=== PATIENT | female | born 1940 | race Caucasian/White ===

== ENCOUNTER 2019-12-10 07:50 | Outpatient (CLI) | payer MEDICARE, BC, SELFPAY ==
--- NOTE | 2019-12-10 | MR_ITS ---
WS: [id number] MRI BRAIN WITH AND WITHOUT CONTRAST HISTORY: CVA, ENCEPHALOPATHY COMPARISON: None available. TECHNIQUE: Multiplanar imaging performed through the brain with Prohance 17 ml's IV. No acute infarcts are seen. Peck-white matter differentiation is well preserved. Mixed signal mass centered along the floor of the tentorium involving the RIGHT occipital lobe. This mass measures 2.3 x 2.1 cm. The T2 sequences there are multiple ill-defined cysts. There is adjacent edema in the cortex. There is a small amount of adjacent hemorrhage and hemosiderin definite position . There is no midline shift or mass effect. On the postcontrast imaging there is very little enhancem ent. There are a few vessels traversing this mass. There is additional scattered subcortical and periventricular white matter lesions. Bilateral vincent is chemic changes. RIGHT intracranial ICA is abnormal signal and size. Chronic occlusion is suspected. There is a very t iny amount of flow seen within the majority of the intracranial ICA. The LEFT ICA is dominant. Paranasal sinuses: Mucous retention cyst in the LEFT maxillary sinus. Mastoid air cells: Normal. Calvarium and scalp: Normal. MR/MR head wo/w con [id number] IMPRESSION: 1. Soft tissue mass in the RIGHT occipital lobe with extension along the tento rium. Mass measures 2.3 x 2.1 cm with minimal enhancement. Believe this is an i ntra-axial mass with a small amount of adjacent hemosiderin. Low-grade neoplasm or vascular abnormality should be considered. Recommend follow-up for neurosur gical consultation. Short-term MRI follow-up with contrast may be helpful. Kevon tional CT head with and without contrast may be helpful for further characteriz ation of this mass. 2. Abnormal RIGHT intracranial ICA. Suspect dissection or high-grade obstructi on within the intracranial ICA. CT angiogram carotid artery and [place] s recommended. 3. No acute infarct.
== END 2019-12-10 07:51 | disposition home or self-care (01) ==
LOC: RADSHAW 07:58
PROVIDERS: PCP Family Medicine; Visit Provider Family Medicine
DX: I67.89 Other cerebrovascular disease (principal); G93.40 Encephalopathy, unspecified; R22.0 Localized swelling, mass and lump, head
CPT/HCPCS: 70553; A9579

== ENCOUNTER 2020-01-12 09:41 | Outpatient (CLI) | payer MEDICARE, BC, SELFPAY ==
--- NOTE | 2020-01-12 09:55 | CT_ITS ---
WS: [id number] CTA HEAD TECHNIQUE: Contrast enhanced CTA of the head with coronal and sagittal reformatted images and maximum intensity projection (MIP) images. NASCET criteria utilized. CLINICAL INFORMATION: BRAIN TUMOR AND ENCEPHALOPATHY COMPARISON: CTA January 12, 2020 DLP: 1268.[address] scans at [facility] use at least one of these dose optimization techniques: automat ed exposure control; mA and/or kV adjustment per patient size (includes targeted exams where dose is matched to clinical indication); or iterative reconstruction. FINDINGS: The previously described signal abnormality in the right occipital lobe extending along the tentorium today appears to represent chronic infarct with associated encephalomalacia. No significan t mass effect or midline shift. Associated encephalomalacia seen to better advantage on the CT today. Area of encephalomalacia appears stable. Right ICA is essentially occluded at the skull base with a tiny amount of flow. Tiny amount of flow i n the petrous and cavernous segments. Normal left ICA at the skull base. Hypoplastic right A1 segment . Normal vascularity to the HALI territory. Normal vascularity to the right MCA territory. Patent righ t posterior communicating artery contributes to right MCA flow. Distal vertebral arteries are patent. Basilar artery is patent. 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 Mastoid air cells are well aerated. Mild mucosal thickening in the paranasal sinuses. Mild cavernous carotid calcification. Normal visualized dural venous sinuses. INTRACRANIAL CTA: CT/CT angio head [id number] IMPRESSION: 1. Previously described T2 signal abnormality in the right occipital lobe toda y appears to represent chronic infarct with encephalomalacia. No significant ma ss effect or midline shift. No abnormal enhancement. 2. Right ICA is occluded at the skull base to with a tiny amount of recanalize d or collateral flow in the petrous and cavernous segments. 3. Hypoplastic right A1 segment. Normal vascularity to the right MCA territory with patent right posterior communicating artery. 4. Otherwise unremarkable intracranial CTA.
--- NOTE | 2020-01-12 09:55 | CT_ITS ---
WS: [id number] CT scan of the abdomen and pelvis without Oral and IV contrast. Additional two-dimensional coronal a nd sagittal reconstruction was performed. 01/12/2020 Clinical Data: BRAIN TUMOR AND ENCEPHALOPATHY Comparison: None. DLP: 1053.[address] scans at [facility] use at least one of these dose optimization techniques: automat ed exposure control; mA and/or kV adjustment per patient size (includes targeted exams where dose is matched to clinical indication); or iterative reconstruction. Findings: The lower lungs show no nodules, masses or effusions. The heart is enlarged. The liver, spleen, adrenal glands and pancreas are normal. There are gallstones in the gallbladder The kidneys show cysts, masses, renal calculi or hydronephrosis.. The abdominal aorta is normal in size with calcification in the wall.. No appendicitis or diverticulitis is seen. No abscess, adenopathy, ascites, mass, obstruction or free air is seen. The bladder is unremarkable. The uterus is absent. No inguinal hernia is seen. The bones of the lower thorax, lumbar spine, pelvis, and hips show moderate degenerative change of th e lower lumbar vertebral bodies with degenerative disc narrowing at L5-S1. CT/CT abdomen pelvis wo con [id number] Impression: 1. Negative for acute intra-abdominal or pelvic abnormalities. 2. Cholelithiasis.
[2020-01-12] MEDS: iohexol 350 mg/mL 100 mL Btl IV (10:39)
== END 2020-01-12 09:42 | disposition home or self-care (01) ==
LOC: RADWPI 09:51
PROVIDERS: Family Provider Family Medicine; PCP Family Medicine; Visit Provider Family Medicine
DX: D49.6 Neoplasm of unspecified behavior of brain (principal); G93.40 Encephalopathy, unspecified; G93.89 Other specified disorders of brain; I65.21 Occlusion and stenosis of right carotid artery
CPT/HCPCS: 70496; 74176; Q9967

== ENCOUNTER 2020-01-14 07:36 | Outpatient (CLI) | payer MEDICARE, BC, SELFPAY ==
--- NOTE | 2020-01-14 07:56 | MR_ITS ---
WS: [id number] MRI HEAD WITH CONTRAST TECHNIQUE: Sagittal T1, T2 axial, T2 axial FLAIR, axial susceptibility weighted imaging, axial diffus ion weighted images, and coronal T2 images were obtained. Pre and post-T1 axial and post T1 coronal i mages. ADC and FSPGR images. CLINICAL INFORMATION: BRAIN TUMOR COMPARISON: MRI December 10, 2019 CTA January 12, 2020 FINDINGS: No evidence of restricted diffusion to suggest acute ischemia. Ventricular system and basal cisterns are patent. Again seen is the focal area of cystic encephalomalacia involving the right parasagittal occipital and posterior temporal lobes. Small amount of surrounding hemosiderin. No progressive T2 si gnal abnormality. No abnormal gadolinium enhancement. Findings are consistent with chronic encephalom alacia likely due to prior infarct. Moderate small vessel changes. Mild parenchymal volume loss. Small vessel changes in the vincent. Normal posterior fossa. 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 Otherwise normal va scular flow voids at the skull base. Chronic lacunar infarct right cerebellum. Retention cyst left maxillary sinus. Mild mucosal thickening ethmoid air cells. Mastoid air cells are well aerated. Normal optic chiasm and pituitary infundibulum. Mild to moderate symmetric atrophy inv olving the temporal lobes and hippocampal formations. Normal dural venous sinuses. No abnormal intrac ranial enhancement. MR/MR head wo/w con [id number] IMPRESSION: 1. T2 hyperintensity involving the right parasagittal occipital lobe is unchan ged. Small amount surrounding hemosiderin. No abnormal gadolinium enhancement. Findings are most consistent with chronic infarct with cystic encephalomalacia. This can be followed up in 3 months to confirm stability with MRI without and with gadolinium enhancement. 2. Moderate small vessel changes with moderate parenchymal volume loss. 3. Chronic lacunar infarct right cerebellum. 4. 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 5. Left maxillary retention cyst.
== END 2020-01-14 07:37 | disposition home or self-care (01) ==
LOC: RADWPI 07:41
PROVIDERS: Family Provider Family Medicine; PCP Family Medicine; Visit Provider Family Medicine
DX: D49.6 Neoplasm of unspecified behavior of brain (principal); G93.40 Encephalopathy, unspecified; I63.81 Other cerebral infarction due to occlusion or stenosis of small artery; I65.21 Occlusion and stenosis of right carotid artery; M27.40 Unspecified cyst of jaw
CPT/HCPCS: 70553; A9579

== ENCOUNTER 2020-01-15 09:02 | Emergency (ER) | payer MEDICARE, BC, SELFPAY ==
[2020-01-15 09:08] VITALS: BP 152/75; PULSE 76; RESP 18; TEMP 36.8; O2SAT 95; BMI 26.6
--- NOTE | 2020-01-15 09:17 | CT_ITS ---
WS: [id number] CT head wo con* [id number] REASON FOR EXAM: new onset dizziness IV CONTRAST ADMINISTERED: None. TOTAL EXAM DLP: 827.[address] scans at [facility] use at least one of these dose optimization techniques: automat ed exposure control; mA and/or kV adjustment per patient size (includes targeted exams where dose is matched to clinical indication); or iterative reconstruction. FINDINGS: This study shows a hypodense area along the right side of the occipital lobe. Consistent wi th a previous infarction in this area. Radius MRI of 01/14/2020 showed be occipital infarction. The ventricles are small in size but show no evidence of abnormalities in the paraventricular area. There is mild effacement of the sulci in the frontal lobes. No hemorrhage, mass effect or seen. The calvarium was normal. The ethmoid sinuses show inflammatory changes. The remaining paranasal sinuses were normal. The 7th and 8th nerve complexes show no abnormalities no mass effect or seen in the mastoid air cells are normal. Orbits appear to be normal. The pituitary show no abnormalities. CT/CT head wo con* [id number] IMPRESSION: Right-sided occipital infarction unchanged since previous exam of January 12, 2020 Subacute ethmoid sinusitis.
--- NOTE | 2020-01-15 09:17 | ECG_ITS ---
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 Measurements Intervals [place] Rate: 78 P: 12 TN: 178 QRS: 1 QRSD: 91 T: 30 QT: 376 QTc: 429 Interpretive Statements SINUS RHYTHM WITH SINUS ARRHYTHMIA POSSIBLE LEFT ATRIAL ENLARGEMENT [-0.1mV P WAVE IN V1/V2] Compared to ECG 04/13/2016 20:32:41 Sinus tachycardia no longer present Electronically Signed On 01-15-2020 13:07:22 CDT by Servando Akhtar M.D. [id number]
[2020-01-15 09:23] VITALS: RESP 17
--- NOTE | 2020-01-15 09:27 | W.ED.GENADLT ---
HPI - General Adult General: Chief complaint: General Medical Stated complaint: stroke like symptoms Time Seen by Provider: 01/15/20 09:17 Source: patient Mode of arrival: ambulatory Limitations: no limitations History of Present Illness: HPI narrative: Patient comes in today for concerns of dizziness. Patient reports a similar episode back in October but was a lot worse than today's episode. At that time patient was evaluated by her primary care and has had a CT scan and MRI done since this first episode. Patient had an MRI done yesterday and was told that she has had a stroke at one time. They believe that she might of had a stroke back in October with this first episode. Patient appears well. Patient responds appropriately. Review of the record noted an MRI which showed the infarct. Patient at this time only takes atorvastatin and Seroquel. Patient had been taking an aspirin a day but stopped it due to excessive bruising. Patient responds appropriately and appears well. Review of Systems General: Reports: 10 or more systems reviewed and unremarkable except in HPI and below Neuro: Reports: dizziness [facility] ED PFSH: Social History Smoking and tobacco status: never smoked Physical Exam Const: COMMON NORMALS: no acute distress, patient oriented x3 and alert GENERAL APPEARANCE: cooperative HENMT: COMMON NORMALS: normocephalic, TM's normal bilaterally and Normal external nose present HEAD & SCALP: normal to inspection and normocephalic NOSE: Normal external nose present TYMPANIC MEMBRANE: TM's normal bilaterally MOUTH: Normal oral and palatal mucosa present THROAT: posterior oropharynx normal Eye: GENERAL EYE: appearance normal, both eyes and all related structures Neck/C-Spine: COMMON NORMALS: full ROM and no meningeal signs Lymph: LYMPHATIC: no lymphadenopathy noted Chest: COMMONS NORMALS: normal inspection of the chest Resp: COMMON NORMALS: normal respiratory effort EFFORT & INSPECTION: Yes able to speak in complete sentences Cardio: COMMON NORMALS: regular rate and regular rhythm RATE: regular rate RHYTHM: regular rhythm GI: COMMON NORMALS: non-tender : COMMON NORMALS: Yes no CVA tenderness BLADDER/KIDNEY EXAM: Yes no CVA tenderness Back/Pelvis: COMMON NORMALS: no CVA tenderness and thoracic and lumbar spine normal to inspection Extremity: COMMON NORMALS: normal to inspection Neuro: COMMON NORMALS: patient oriented x3 and moves all extremities SENSORIUM/ORIENTATION: Yes alert MENINGEAL SIGNS: Yes no meningeal signs SPEECH: speech normal GAIT: Yes Normal gait present SENSORY EXAM: Yes extremities and Trunk sensory exam abnormal MOTOR EXAM: 5/5 motor strength present throughout Psych: COMMON NORMALS: mental status grossly normal and cooperative Skin: COMMON NORMALS: no rashes or lesions noted GENERAL SKIN EXAM: no rashes or lesions noted Course Vital Signs: Vital signs: Vital Signs Temperature 98.3 F 01/15/20 09:08 Pulse Rate 76 01/15/20 09:08 Respiratory Rate 17 01/15/20 10:11 Blood Pressure 152/75 01/15/20 09:08 Pulse Oximetry 95 01/15/20 09:08 MDM - General Adult MDM Narrative: Medical decision making narrative: Patient comes in today for concerns of dizziness. Patient had talked to her doctor he recommended she be evaluated in the ER. On exam patient appears well. No neurosensory deficits were noted. No focal neural deficits were noted. Respirations were even lungs were clear to auscultation. Vital signs were normal. Differential diagnosis includes residual effects of CVA, new onset of CVA, intracranial mass, intra-cerebral hemorrhage, sinusitis, BPV. Laboratory values were normal. EKG was normal sinus rhythm. CT scan of the head was unchanged. Reviewed exam with patient with recommendations for treatment and follow-up. Patient reported understanding and agreed to plan with recommendations for follow-up. Lab Data: Labs: Lab Results 01/15/20 01/15/20 01/15/20 Range/Units 09:42 09:42 09:42 WBC 5.1 (4.0-10.0) 10^3/ uL RBC 4.03 L (4.1-5.3) 10^6/u L Hgb 12.1 (11.5-15.3) g/dL Hct 38.1 (37.0-47.0) % MCV 94.5 (81-99) fL MCH 30.0 (28.0-34.0) pg MCHC 31.8 (30.0-36.0) g/dL RDW 12.5 (12.1-15.1) % Plt Count 236 (130-400) 10^3/c mm MPV 11.3 H (7.4-10.4) fL Neut % (Auto) 53.9 % Lymph % (Auto) 33.3 % [place] % (Auto) 8.3 % Eos % (Auto) 3.7 % Baso % (Auto) 0.8 % Neut # (Auto) 2.7 (1.8-7.7) 10^3/u L Lymph # (Auto) 1.7 (0.8-4.8) 10^3/u L [place] # (Auto) 0.4 (0.2-0.9) 10^3/u L Eos # (Auto) 0.2 (0.0-0.8) 10^3/u L Baso # (Auto) 0.0 (0.0-0.1) 10^3/u L Nucleated RBC % (a uto) 0 % Nucleated RBCs # 0.0 /100WBC Sodium 141 (136-145) mmol/L Potassium 3.9 (3.5-5.1) mmol/L Chloride 103 (98-107) mmol/L Carbon Dioxide 27 (22-29) mmol/L Anion Gap 14.9 (5-19) BUN 10 (8-23) mg/dL Creatinine 0.6 (0.5-0.9) mg/dL Glucose 91 (65-115) mg/dL Calculated Osmolal ity 288 (285-295) mOsm/k g Calcium 9.2 (8.5-10.5) mg/dL Total Bilirubin 0.3 (0.15-1.2) mg/dL AST 22 (0-32) U/L ALT 14 (0-33) U/L Alkaline Phosphata se 108 H (35-105) IU/L Troponin T Baselin e 8 (0-10) ng/L Total Protein 6.9 (6.6-8.7) g/dL Albumin 4.1 (3.5-5.2) g/dL Globulin 2.8 (1.3-4.6) g/dL Discharge Plan Discharge Patient Disposition: Home, Self-Care Clinical Impression: 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 Sinusitis Qualifiers: Sinusitis location: unspecified location Chronicity: unspecified Qualified Code(s): J32.9 - Chronic sinusitis, unspecified Condition: Stable Prescriptions: New Flonase Allergy Relief 50 mcg/actuation spray,suspension 1 spray INTRANASAL BID Qty: 16 RF: 0 No Action quetiapine 25 mg tablet 25 mg PO BID RF: 0 atorvastatin 20 mg tablet 20 mg PO DAILY RF: 0 Multiple Vitamins Tablet 1 tab PO DAILY RF: 0 Aspir-81 81 mg Tablet,Delayed Release (Dr/Ec) See Rx Instructions .ROUTE .COMPLEX RF: 0 Vitamin C 500 mg Tablet 500 mg PO DAILY RF: 0 Calcium 600 + Minerals 1 tab PO DAILY RF: 0 [place] 3-6-9 1 cap PO DAILY RF: 0 Vitamin D3 1 tab PO DAILY RF: 0 Discharge Orders: Discharge Order (Routine); Ordered 01/15/20 Ordered By: Chinedu Mendieta Referrals: Te Gipson MD [Primary Care Provider] - Discharge Diet: Usual diet Discharge Activity: Increase activity as tolerated Activity Restrictions/Additional Instructions: Use medication as directed. Use Flonase nasal spray twice a day for sinusitis. Drink plenty of water with medications. Follow-up with primary care in 1 week. Return to the ER for worsening symptoms or new concerns. Coding Level of Care Code ED Crime Prevention Police Officer for Renaldo Fwnilesh Exam Comprehensive
[2020-01-15 09:58] LABS: Basophils % 0.8 %; Eosinophils # 0.2 10^3/uL (0.0-0.8); Eosinophils % 3.7 %; Hematocrit 38.1 % (37.0-47.0); Hemoglobin 12.1 g/dL (11.5-15.3); Lymphocytes # 1.7 10^3/uL (0.8-4.8); Lymphocytes % 33.3 %; Mean Corpuscular HGB Conc 31.8 g/dL (30.0-36.0); Mean Corpuscular Volume 94.5 fL (81-99); Mean Platelet Volume 11.3 fL (7.4-10.4); Monocytes # 0.4 10^3/uL (0.2-0.9); Monocytes % 8.3 %; Neutrophils # 2.7 10^3/uL (1.8-7.7); Neutrophils % 53.9 %; Nucleated Red Blood Cells % 0 %; Platelet Count 236 10^3/cmm (130-400); Red Blood Count 4.03 10^6/uL (4.1-5.3); Red Cell Distribution Width 12.5 % (12.1-15.1); White Blood Count 5.1 10^3/uL (4.0-10.0)
[2020-01-15 10:11] VITALS: RESP 17
[2020-01-15 10:20] LABS: Alanine Aminotransferase 14 U/L (0-33); Albumin Level 4.1 g/dL (3.5-5.2); Alkaline Phosphatase 108 IU/L (35-105); Anion Gap 14.9 (5-19); Aspartate Amino Transferase 22 U/L (0-32); Blood Urea Nitrogen 10 mg/dL (8-23); Calcium 9.2 mg/dL (8.5-10.5); Carbon Dioxide 27 mmol/L (22-29); Chloride 103 mmol/L (98-107); Globulin 2.8 g/dL (1.3-4.6); Glucose 91 mg/dL (65-115); Osmolality Calculated 288 mOsm/kg (285-295); Potassium 3.9 mmol/L (3.5-5.1); Sodium 141 mmol/L (136-145); Total Bilirubin 0.3 mg/dL (0.15-1.2); Total Protein 6.9 g/dL (6.6-8.7); Troponin(5th) Baseline 8 ng/L (0-10)
[2020-01-15 11:52] VITALS: BP 138/59; PULSE 67; RESP 16; O2SAT 95
== END 2020-01-15 11:53 | disposition home or self-care (01) ==
PROVIDERS: Emergency Provider Nurse Practitioner Family; Family Provider Family Medicine; PCP Family Medicine
DX: J32.9 Chronic sinusitis, unspecified (principal); H81.4 Vertigo of central origin; Z79.82 Long term (current) use of aspirin
CPT/HCPCS: 12345; 70450; 80053; 84484; 85025; 93005; 99283

== ENCOUNTER 2020-06-22 08:04 | Inpatient (IN) | payer MEDICARE, BC, SELFPAY ==
[2020-06-22] VITALS (69 sets, daily range): BP systolic 84–152; BP diastolic 57–86; PULSE 91–119; RESP 16–31; TEMP 36.4–36.8; O2SAT 87–94; BMI 25.6
--- NOTE | 2020-06-22 08:19 | CT_ITS ---
WS: [id number] CT HEAD NONCONTRAST HISTORY: syncope TECHNIQUE: Contiguous axial imaging performed through the brain in 2.5 mm imaging. Bone and soft tiss ue windows. Sagittal and coronal reformats reviewed. All CT scans at [facility] use at le ast one of these dose optimization techniques: automated exposure control; mA and/or kV adjustment pe r patient size (includes targeted exams where dose is matched to clinical indication); or iterative r econstruction. DLP: 742.33 mGy.cm COMPARISON: 01/15/2020 No acute intracranial hemorrhage, midline shift or mass effect. Mild atrophy bilaterally. Similar to the prior studies. Remote lacunar infarcts in the external capsu les bilaterally. Prior infarct with encephalomalacia in the RIGHT occipital lobe. Ventricles: Normal size with no hydrocephalus. Distal vertebral arteries and the intracranial carotid arteries are tortuous and dilated. Prominent d istal LEFT ICA is similar to prior studies. No aneurysm has been previously reported. Paranasal sinuses: As visualized are clear. Mastoid air cells: Well pneumatized. Calvarium and scalp: Hyperostosis frontalis interna. CT/CT head wo con* [id number] IMPRESSION: 1. No acute intracranial hemorrhage or edema. 2. 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 3. Dolichoectasia distal vertebral and carotid arteries.
--- NOTE | 2020-06-22 08:20 | XR_ITS ---
WS: [id number] XR chest 1V portable [id number] REASON FOR EXAM: syncope/hypoxia FINDINGS: Moderate tortuosity and mild ectasia of the thoracic aorta. The heart is enlarged. Calcified granulomatous changes in both hemithoraces. No active pulmonary parenchymal pleural disease. There is minimal blunting of the costophrenic angles which is apparent on previous chest x-rays. Mild changes of degenerative spondylosis in the mid and lower thoracic spine. XR/XR chest 1V portable [id number] IMPRESSION: No acute chest abnormality.
--- NOTE | 2020-06-22 08:20 | ECG_ITS ---
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1940 Requested By: Judy Mcknight Order Number: [id number] Staci MD: SHERRI MATIAS Measurements Intervals [place] Rate: 101 P: 31 FL: 144 QRS: 3 QRSD: 112 T: -10 QT: 353 QTc: 458 Interpretive Statements SINUS TACHYCARDIA POSSIBLE LEFT ATRIAL ENLARGEMENT [-0.1mV P WAVE IN V1/V2] POSSIBLE INFERIOR MYOCARDIAL INFARCTION , OF INDETERMINATE AGE [30 ms Q WAVE IN II/aVF] Compared to ECG 01/15/2020 09:10:14 Myocardial infarct finding now present Sinus rhythm no longer present Sinus arrhythmia no longer present Electronically Signed On 06-23-2020 15:24:10 RETAIL BUSINESS DEVELOPMENT MANAGER by SHERRI MATIAS [id number]
--- NOTE | 2020-06-22 08:26 | ED_ITS ---
HPI - Syncope General: Chief Complaint: Syncope Stated Complaint: syncope Time Seen by Provider: 06/22/20 08:10 Source: patient and EMS Mode of arrival: EMS History of Present Illness: HPI narrative: 80-year-old pleasant female presents to the emergency department with acute onset of dizziness with syncope this morning. Syncopal episode was witnessed by her spouse. She reports got up to feed the cats, went to pour water in the coffee pot when she started feeling faint and weak. She reports episode of dizziness. She was able to call her for help. Her spouse states was able to lower her to the floor, was in a safe position, did not fall or sustain injuries. He reports witnessed gasping for breath, episode lasted 3 to 4 minutes. EMS state upon arrival, oxygen saturation was in the 70s and 80s. She was supplemented with oxygen, currently on 3 L nasal cannula with oxygen saturation 94%. She did have episode of incontinence with syncopal episode, no seizure activity reported, she was not postictal after episode. 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 States continued follow- up appointment with a neurologist at [facility] due to stroke December 2019. She denies recent history of fever chills. Denies nausea vomiting. Denies Covid exposure. She reports several day history of left rib pain similar to that she experienced with previous episodes of pneumonia. 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 MD complaint: loss of consciousness, felt faint and collapsed Onset (ago): minute(s) (30) -: minutes(s) (3-4) Description of event: incontinence and other (gasping for breath) Prodromal symptoms: headache, lightheaded and shortness of breath Witnessed: Yes - by Bystander Context: during exertion and standing up Injuries sustained associated with event: none Associated symptoms: Reports headache(s), lightheadedness and weakness; Deny abdominal pain, fever(s) or nausea Treatments prior to arrival: IV fluids and other (Oxygen) Review of Systems General: Reports: 10 or more systems reviewed and unremarkable except in HPI and below Const: Reports: chills; Denies: fever(s), body aches, fatigue, malaise or diaphoresis Eyes: Denies: change in vision, blurry vision or eye redness ENMT: Denies: throat pain, hoarseness, dental pain or disequilibrium Card: Reports: lightheadedness, syncope and dyspnea on exertion; Denies: swelling of feet/ankles Resp: Reports: other (pain to the left ribs); Denies: dyspnea, productive cough, non-productive cough or wheezing GI: Denies: abdominal pain, nausea or vomiting : Denies: difficulty voiding or dysuria Musc: Denies: back pain Skin/Breast: Denies: rash or pruritus Neuro: Reports: headache(s) Psych: Reports: anxiety and difficulty concentrating (since stroke 12/2019); Denies: depression or change in appetite Saran/Lymph: Denies: easy bruising PFSH ED PFSH: Social History Smoking and tobacco status: never smoked Physical Exam Const: COMMON NORMALS: no acute distress, patient oriented x3, healthy appearing, alert and well nourished EXAM LIMITATIONS: other limitations (generalized weakness) GENERAL APPEARANCE: cooperative, comfortable, well kempt, frail appearing and well hydrated NUTRITIONAL APPEARANCE: thin ORIENTATION/CONSCIOUSNESS: Yes awake, Yes oriented to person, Yes oriented to place and Yes oriented to time HENMT: COMMON NORMALS: normocephalic, atraumatic, Normal external nose present and moist oral mucous membranes HEAD & SCALP: normal to inspection, normocephalic and atraumatic FACE & SINUS: normal facial exam and face symmetric NOSE: Normal external nose present MOUTH: Normal oral and pa latal mucosa present Eye: COMMON NORMALS: Equal, round and reactive pupils present and EOMs intact bilaterally GENERAL EYE: appearance normal, both eyes and all related structures EYELID: eyelids normal SCLERA: sclerae normal PUPIL: Yes Equal, round and reactive pupils present EOM: Yes EOM abnormal Neck/C-Spine: COMMON NORMALS: full ROM and no lymphadenopathy GENERAL: Yes normal visual inspection and Yes trachea midline CERVICAL SPINE: Yes cervical ROM normal, No pain with cervical ROM, No Cervical spine tenderness and No Paracervical muscle tenderness Lymph: LYMPHATIC: no lymphadenopathy noted Chest: COMMONS NORMALS: normal inspection of the chest and normal palpation of entire chest wall CHEST: No localized rib tenderness with anteroposterior compression Resp: COMMON NORMALS: normal respiratory effort and No use of accessory muscles EFFORT & INSPECTION: Yes able to speak in complete sentences, No stridor and No Actively coughing AUSCULTATION: crackles Laterality: left Cardio: COMMON NORMALS: regular rhythm, S1 normal heart sound present, S2 normal heart sound present and Peripheral pulses 2+ throughout RHYTHM: regular rhythm HEART SOUNDS: S1 normal heart sound present and S2 normal heart sound present PERIPHERAL PULSES: Peripheral pulses 2+ throughout GI: COMMON NORMALS: Normal to inspection, nondistended, normoactive bowel sounds present, Soft to palpation and non-tender INSPECTION: Yes normal to inspection, No abdominal distension, No central obesity and No visible herniation PALPATION: Yes Soft to palpation and No Hepatosplenomegaly present : COMMON NORMALS: Yes no CVA tenderness BLADDER/KIDNEY EXAM: Yes no CVA tenderness Back/Pelvis: COMMON NORMALS: no CVA tenderness, thoracic and lumbar spine normal to inspection, no thoracic nor lumbar tenderness and straight leg raise negative bilaterally Extremity: COMMON NORMALS: normal to inspection and capillary refill normal GENERAL: Yes normal exam except as noted Neuro: CONRAD COMA SCALE: document GCS findings Columbia coma scale eye opening: Spontaneous Conrad coma scale verbal response: Orientated Columbia coma scale motor response: Obey commands Columbia coma scale total score: 15 COMMON NORMALS: patient oriented x3 and no focal motor deficits SENSORIUM/ORIENTATION: Yes alert, Yes oriented to person, Yes oriented to place and Yes oriented to time SPEECH: speech normal MOTOR EXAM: Pronator motor function not present, no tremor noted, Normal motor muscle tone present throughout and Abnormal motor strength present (strength 3/5) Right pupil size (mm): 4 Left pupil size (mm): 4 Psych: COMMON NORMALS: mental status grossly normal, Normal thought process present and cooperative APPEARANCE: Yes well kempt ACTIVITY/MOTOR BEHAVIOR: Yes appropriate eye contact THOUGHT PROCESS: Normal thought process present Skin: COMMON NORMALS: no rashes or lesions noted and turgor normal GENERAL SKIN EXAM: no rashes or lesions noted and turgor normal Course ED course: 80-year-old female patient presents to the emergency department with hypoxia, syncope. Patient was found to have bilateral pulmonary emboli with elevation of troponin/right heart strain. Heparin bolus with IV drip initiated, transfer of care to Dr. Lennon due to need for hospital admission Vital Signs: Vital signs: Vital Signs Temperature 97.5 F L 06/22/20 08:06 Pulse Rate 103 H 06/22/20 12:45 Respiratory Rate 24 H 06/22/20 12:45 Blood Pressure 122/75 06/22/20 12:45 Pulse Oximetry 93 06/22/20 12:45 MDM - Syncope Lab Data: Labs: Lab Results 06/22/20 06/22/20 06/22/20 Range/Units 08:32 08:33 09:10 WBC 8.5 (4.0-10.0) 10^3/ uL RBC 4.04 L (4.1-5.3) 10^6/u L Hgb 11.6 (11.5-15.3) g/dL Hct 37.7 (37.0-47.0) % MCV 93.3 (81-99) fL MCH 28.7 (28.0-34.0) pg MCHC 30.8 (30.0-36.0) g/dL RDW 13.2 (12.1-15.1) % Plt Count 202 (130-400) 10^3/c mm MPV 11.0 H (7.4-10.4) fL Neut % (Auto) 80.5 % Lymph % (Auto) 12.5 % Highlands % (Auto) 5.4 % Eos % (Auto) 0.9 % Baso % (Auto) 0.5 % Neut # (Auto) 6.79 (1.8-7.7) 10^3/u L Lymph # (Auto) 1.1 (0.8-4.8) 10^3/u L Highlands # (Auto) 0.5 (0.2-0.9) 10^3/u L Eos # (Auto) 0.1 (0.0-0.8) 10^3/u L Baso # (Auto) 0.0 (0.0-0.1) 10^3/u L Nucleated RBC % (a uto) 0 % Nucleated RBCs # 0.0 /100WBC ESR (0-15) mm/hr D-Dimer (0-0.59) ug/mIFE U Specimen Type Arterial Sample Site Radial, left ABG pH 7.38 (7.35-7.45) ABG pCO2 47.5 H (35-45) mmHg ABG pO2 52.9 L (80.0-100.0) mmH g ABG HCO3 28.2 H (22-26) mmol/L ABG O2 Saturation 89.9 ABG Base Excess 2.5 H (-2.0-2.0) mmol/ L Neel Test Pos A-a O2 Gradient 14.9 H (5-10) mmHg Hematocrit 36.8 L (37-47) % Hgb O2 Saturation 88.8 L (95-100) % Carboxyhemoglobin 0.8 (0.4-20.1) %THgb Methemoglobin 0.4 (0.4-1.5) % Total Hemoglobin 12.0 (12-16) g/dL Sodium 143.0 (131-143) mmol/L Potassium 3.5 (3.5-5.0) mmol/L Glucose 127.0 H (70-115) mg/dL Ionized Calcium 1.2 (1.1-1.4) mmol/L O2 Delivery Device Nc O2 Liters/Min 3.0 % FiO2 32.0 % Manager Hiv ID Cak Chloride (98-107) mmol/L Carbon Dioxide (22-29) mmol/L Anion Gap (5-19) BUN (8-23) mg/dL Creatinine (0.5-0.9) mg/dL GFR Calculation Calculated Osmolal ity (285-295) mOsm/k g Lactate (0.5-2.2) mmol/L Calcium (8.5-10.5) mg/dL Total Bilirubin (0.15-1.2) mg/dL AST (0-32) U/L ALT (0-33) U/L Alkaline Phosphata se (35-105) IU/L Troponin T Baselin e (0-10) ng/L Troponin T 120 Min woodrow (0-10) ng/L Delta Troponin T (0-10) ABS# C-Reactive Protein (0.0-4.9) mg/L Total Protein (6.6-8.7) g/dL Albumin (3.5-5.2) g/dL Globulin (1.3-4.6) g/dL Urine Color Yellow (Yellow) Urine Appearance Clear (CLEAR) Urine pH 8 H (5-7) Ur Specific Gravit y 1.010 (1.005-1.030) Urine Protein Neg (Negative) Urine Glucose (UA) Norm (Normal) Urine Ketones Negative (Negative) Urine Blood Neg (Negative) Urine Nitrate Negative (Negative) Urine Bilirubin Neg (Negative) Urine Urobilinogen Norm (Negative) mg/dL Ur Leukocyte Loyda ase Negative (Negative) Urine RBC None (0-2) /hpf Urine WBC None (0-5) /hpf Ur Squamous Epith Cells 0-4 H (0-5) /hpf Amorphous Sediment 2+ /hpf Urine Bacteria 2+ H (NONE) /hpf Influenza Type A A g (Negative) Influenza Type B A g (Negative) 06/22/20 06/22/20 06/22/20 Range/Units 09:10 09:10 09:10 WBC (4.0-10.0) 10^3/ uL RBC (4.1-5.3) 10^6/u L Hgb (11.5-15.3) g/dL Hct (37.0-47.0) % MCV (81-99) fL MCH (28.0-34.0) pg MCHC (30.0-36.0) g/dL RDW (12.1-15.1) % Plt Count (130-400) 10^3/c mm MPV (7.4-10.4) fL Neut % (Auto) % Lymph % (Auto) % Highlands % (Auto) % Eos % (Auto) % Baso % (Auto) % Neut # (Auto) (1.8-7.7) 10^3/u L Lymph # (Auto) (0.8-4.8) 10^3/u L Highlands # (Auto) (0.2-0.9) 10^3/u L Eos # (Auto) (0.0-0.8) 10^3/u L Baso # (Auto) (0.0-0.1) 10^3/u L Nucleated RBC % (a uto) % Nucleated RBCs # /100WBC ESR (0-15) mm/hr D-Dimer 6.82 H (0-0.59) ug/mIFE U Specimen Type Sample Site ABG pH (7.35-7.45) ABG pCO2 (35-45) mmHg ABG pO2 (80.0-100.0) mmH g ABG HCO3 (22-26) mmol/L ABG O2 Saturation ABG Base Excess (-2.0-2.0) mmol/ L Neel Test A-a O2 Gradient (5-10) mmHg Hematocrit (37-47) % Hgb O2 Saturation (95-100) % Carboxyhemoglobin (0.4-20.1) %THgb Methemoglobin (0.4-1.5) % Total Hemoglobin (12-16) g/dL Sodium 139 (131-143) mmol/L Potassium 3.6 (3.5-5.0) mmol/L Glucose 124 H (70-115) mg/dL Ionized Calcium (1.1-1.4) mmol/L O2 Delivery Device O2 Liters/Min % FiO2 % Manager Hiv ID Chloride 102 (98-107) mmol/L Carbon Dioxide 27 (22-29) mmol/L Anion Gap 13.6 (5-19) BUN 9 (8-23) mg/dL Creatinine 0.7 (0.5-0.9) mg/dL GFR Calculation Not Reportable Calculated Osmolal ity 288 (285-295) mOsm/k g Lactate 1.2 (0.5-2.2) mmol/L Calcium 8.4 L (8.5-10.5) mg/dL Total Bilirubin 0.3 (0.15-1.2) mg/dL AST 17 (0-32) U/L ALT 10 (0-33) U/L Alkaline Phosphata se 101 (35-105) IU/L Troponin T Baselin e (0-10) ng/L Troponin T 120 Min woodrow (0-10) ng/L Delta Troponin T (0-10) ABS# C-Reactive Protein 20.1 H (0.0-4.9) mg/L Total Protein 6.6 (6.6-8.7) g/dL Albumin 3.3 L (3.5-5.2) g/dL Globulin 3.3 (1.3-4.6) g/dL Urine Color (Yellow) Urine Appearance (CLEAR) Urine pH (5-7) Ur Specific Gravit y (1.005-1.030) Urine Protein (Negative) Urine Glucose (UA) (Normal) Urine Ketones (Negative) Urine Blood (Negative) Urine Nitrate (Negative) Urine Bilirubin (Negative) Urine Urobilinogen (Negative) mg/dL Ur Leukocyte Loyda ase (Negative) Urine RBC (0-2) /hpf Urine WBC (0-5) /hpf Ur Squamous Epith Cells (0-5) /hpf Amorphous Sediment /hpf Urine Bacteria (NONE) /hpf Influenza Type A A g (Negative) Influenza Type B A g (Negative) 06/22/20 06/22/20 06/22/20 Range/Units 09:10 09:10 09:12 WBC (4.0-10.0) 10^3/ uL RBC (4.1-5.3) 10^6/u L Hgb (11.5-15.3) g/dL Hct (37.0-47.0) % MCV (81-99) fL MCH (28.0-34.0) pg MCHC (30.0-36.0) g/dL RDW (12.1-15.1) % Plt Count (130-400) 10^3/c mm MPV (7.4-10.4) fL Neut % (Auto) % Lymph % (Auto) % [place] % (Auto) % Eos % (Auto) % Baso % (Auto) % Neut # (Auto) (1.8-7.7) 10^3/u L Lymph # (Auto) (0.8-4.8) 10^3/u L [place]lands # (Auto) (0.2-0.9) 10^3/u L Eos # (Auto) (0.0-0.8) 10^3/u L Baso # (Auto) (0.0-0.1) 10^3/u L Nucleated RBC % (a uto) % Nucleated RBCs # /100WBC ESR 64 H (0-15) mm/hr D-Dimer (0-0.59) ug/mIFE U Specimen Type Sample Site ABG pH (7.35-7.45) ABG pCO2 (35-45) mmHg ABG pO2 (80.0-100.0) mmH g ABG HCO3 (22-26) mmol/L ABG O2 Saturation ABG Base Excess (-2.0-2.0) mmol/ L Neel Test A-a O2 Gradient (5-10) mmHg Hematocrit (37-47) % Hgb O2 Saturation (95-100) % Carboxyhemoglobin (0.4-20.1) %THgb Methemoglobin (0.4-1.5) % Total Hemoglobin (12-16) g/dL Sodium (131-143) mmol/L Potassium (3.5-5.0) mmol/L Glucose (70-115) mg/dL Ionized Calcium (1.1-1.4) mmol/L O2 Delivery Device O2 Liters/Min % FiO2 % Manager Hiv ID Chloride (98-107) mmol/L Carbon Dioxide (22-29) mmol/L Anion Gap (5-19) BUN (8-23) mg/dL Creatinine (0.5-0.9) mg/dL GFR Calculation Calculated Osmolal ity (285-295) mOsm/k g Lactate (0.5-2.2) mmol/L Calcium (8.5-10.5) mg/dL Total Bilirubin (0.15-1.2) mg/dL AST (0-32) U/L ALT (0-33) U/L Alkaline Phosphata se (35-105) IU/L Troponin T Baselin e 195 H* (0-10) ng/L Troponin T 120 Min woodrow (0-10) ng/L Delta Troponin T (0-10) ABS# C-Reactive Protein (0.0-4.9) mg/L Total Protein (6.6-8.7) g/dL Albumin (3.5-5.2) g/dL Globulin (1.3-4.6) g/dL Urine Color (Yellow) Urine Appearance (CLEAR) Urine pH (5-7) Ur Specific Gravit y (1.005-1.030) Urine Protein (Negative) Urine Glucose (UA) (Normal) Urine Ketones (Negative) Urine Blood (Negative) Urine Nitrate (Negative) Urine Bilirubin (Negative) Urine Urobilinogen (Negative) mg/dL Ur Leukocyte Loyda ase (Negative) Urine RBC (0-2) /hpf Urine WBC (0-5) /hpf Ur Squamous Epith Cells (0-5) /hpf Amorphous Sediment /hpf Urine Bacteria (NONE) /hpf Influenza Type A A g Negative (Negative) Influenza Type B A g Negative (Negative) 06/22/ Range/Units 11:18 WBC (4.0-10.0) 10^3/ uL RBC (4.1-5.3) 10^6/u L Hgb (11.5-15.3) g/dL Hct (37.0-47.0) % MCV (81-99) fL MCH (28.0-34.0) pg MCHC (30.0-36.0) g/dL RDW (12.1-15.1) % Plt Count (130-400) 10^3/c mm MPV (7.4-10.4) fL Neut % (Auto) % Lymph % (Auto) % [place] % (Auto) % Eos % (Auto) % Baso % (Auto) % Neut # (Auto) (1.8-7.7) 10^3/u L Lymph # (Auto) (0.8-4.8) 10^3/u L [place] # (Auto) (0.2-0.9) 10^3/u L Eos # (Auto) (0.0-0.8) 10^3/u L Baso # (Auto) (0.0-0.1) 10^3/u L Nucleated RBC % (a uto) % Nucleated RBCs # /100WBC ESR (0-15) mm/hr D-Dimer (0-0.59) ug/mIFE U Specimen Type Sample Site ABG pH (7.35-7.45) ABG pCO2 (35-45) mmHg ABG pO2 (80.0-100.0) mmH g ABG HCO3 (22-26) mmol/L ABG O2 Saturation ABG Base Excess (-2.0-2.0) mmol/ L Neel Test A-a O2 Gradient (5-10) mmHg Hematocrit (37-47) % Hgb O2 Saturation (95-100) % Carboxyhemoglobin (0.4-20.1) %THgb Methemoglobin (0.4-1.5) % Total Hemoglobin (12-16) g/dL Sodium (131-143) mmol/L Potassium (3.5-5.0) mmol/L Glucose (70-115) mg/dL Ionized Calcium (1.1-1.4) mmol/L O2 Delivery Device O2 Liters/Min % FiO2 % Manager Hiv ID Chloride (98-107) mmol/L Carbon Dioxide (22-29) mmol/L Anion Gap (5-19) BUN (8-23) mg/dL Creatinine (0.5-0.9) mg/dL GFR Calculation Calculated Osmolal ity (285-295) mOsm/k g Lactate (0.5-2.2) mmol/L Calcium (8.5-10.5) mg/dL Total Bilirubin (0.15-1.2) mg/dL AST (0-32) U/L ALT (0-33) U/L Alkaline Phosphata se (35-105) IU/L Troponin T Baselin e (0-10) ng/L Troponin T 120 Min woodrow 264.5 H (0-10) ng/L Delta Troponin T 69.5 H* (0-10) ABS# C-Reactive Protein (0.0-4.9) mg/L Total Protein (6.6-8.7) g/dL Albumin (3.5-5.2) g/dL Globulin (1.3-4.6) g/dL Urine Color (Yellow) Urine Appearance (CLEAR) Urine pH (5-7) Ur Specific Gravit y (1.005-1.030) Urine Protein (Negative) Urine Glucose (UA) (Normal) Urine Ketones (Negative) Urine Blood (Negative) Urine Nitrate (Negative) Urine Bilirubin (Negative) Urine Urobilinogen (Negative) mg/dL Ur Leukocyte Loyda ase (Negative) Urine RBC (0-2) /hpf Urine WBC (0-5) /hpf Ur Squamous Epith Cells (0-5) /hpf Amorphous Sediment /hpf Urine Bacteria (NONE) /hpf Influenza Type A A g (Negative) Influenza Type B A g (Negative) Imaging Data^: CT Head: Radiologist's impression: [place] [address] CT Scan Report Signed Patient: Carmen Macias Unit #: [id number] : 1940 Age/Sex: 80 / F ADM Date: 06/22/20 Loc: ER Room/Bed: Attending Dr: Ordering Provider/Ordering MD: Judy Seo Date of Service: 06/22/20 Procedure(s): CT head wo con* [id number] Accession Number(s): [id number] Report Number: [id number] WS: [id number] CT HEAD NONCONTRAST HISTORY: syncope TECHNIQUE: Contiguous axial imaging performed through the brain in 2.5 mm imaging. Bone and soft tissue windows. Sagittal and coronal reformats reviewed. All CT scans at [facility] use at least one of these dose optimization techniques: automated exposure control; mA and/or kV adjustment per patient size (includes targeted exams where dose is matched to clinical indication); or iterative reconstruction. DLP: 742.33 mGy.cm COMPARISON: 01/15/2020 No acute intracranial hemorrhage, midline shift or mass effect. Mild atrophy bilaterally. Similar to the prior studies. Remote lacunar infarcts in the external capsules bilaterally. Prior infarct with encephalomalacia in the RIGHT occipital lobe. Ventricles: Normal size with no hydrocephalus. Distal vertebral arteries and the intracranial carotid arteries are tortuous and dilated. Prominent distal LEFT ICA is similar to prior studies. No aneurysm has been previously reported. Paranasal sinuses: As visualized are clear. Mastoid air cells: Well pneumatized. Calvarium and scalp: Hyperostosis frontalis interna. CT/CT head wo con* [id number] IMPRESSION: 1. No acute intracranial hemorrhage or edema. 2. 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 3. Dolichoectasia distal vertebral and carotid arteries. Dictated By: Renae Shepherd DO Signed By: Renae Shepherd DO Signed Date/Time: 06/22/20921 DD/ 7 CXR: Radiologist's impression: [facility] [address] [place] [address] XRay Report Signed Patient: Carmen Macias Unit #: [id number] : 1940 Age/Sex: 80 / F ADM Date: 06/22/20 Loc: ER Room/Bed: Attending Dr: Ordering Provider/Ordering MD: Judy Seo Date of Service: 06/22/20 Procedure(s): XR chest 1V portable [id number] Accession Number(s): [id number] Report Number: [id number] WS: [id number] XR chest 1V portable [id number] REASON FOR EXAM: syncope/hypoxia FINDINGS: Moderate tortuosity and mild ectasia of the thoracic aorta. The heart is enlarged. Calcified granulomatous changes in both hemithoraces. No active pulmonary parenchymal pleural disease. There is minimal blunting of the costophrenic angles which is apparent on previous chest x-rays. Mild changes of degenerative spondylosis in the mid and lower thoracic spine. XR/XR chest 1V portable [id number] IMPRESSION: No acute chest abnormality. Dictated By: Lucho Orourke Jr, MD Signed By: Lucho Orourke Jr, MD Signed Date/Time: 06/22/20945 DD/ 3 CT Chest: Radiologist's impression: [address] [place] [address] CT Scan Report Signed Patient: Carmen Macias Unit #: [id number] : 1940 Age/Sex: 80 / F ADM Date: 06/22/20 Loc: ER Room/Bed: Attending Dr: Ordering Provider/Ordering MD: Judy Seo Date of Service: 06/22/20 Procedure(s): CT angio chest PE protcl [id number] Accession Number(s): [id number] Report Number: [id number] WS: [id number] CT CHEST ANGIOGRAPHY WITH REFORMATS HISTORY: elevated d-dimer TECHNIQUE: Contiguous axial images are obtained through the chest during arterial injection of intravenous contrast. Images are reconstructed to evaluate the pulmonary arteries. MIP imaging also reviewed. All CT scans at [facility] use at least one of these dose optimization techniques: automated exposure control; mA and/or kV adjustment per patient size (includes targeted exams where dose is matched to clinical indication); or iterative reconstruction. CONTRAST: Omnipaque 350; 95 mL IV. DLP: 547.5 mGy.cm COMPARISON: 07/25/2016 Extensive bilateral pulmonary embolic burden. Pulmonary emboli begin in the distal RIGHT and LEFT main pulmonary arteries with extension into the upper lower lobe lobar and segmental branches. There is moderate RIGHT heart strain. RIGHT heart chambers are enlarged with flattening of the intraventricular septum. Moderate atherosclerosis aorta with no aneurysm. No pericardial or pleural effusion. Mild interstitial edema throughout both lungs. No mass or pneumonia. There are numerous small mediastinal, axillary and hilar lymph nodes these are probably reactive. Lymph nodes are less than a centimeter. Small hiatal hernia. CT/CT angio chest PE protcl [id number] IMPRESSION: 1. Extensive bilateral pulmonary emboli with RIGHT heart strain. 2. Mild CHF. 3. Reactive lymph nodes. 4. Cardiomegaly. Notified ELVIRA Keith at 06/22/2020 11:26 AM. Dictated By: Renae Shepherd DO Signed By: Renae Shepherd DO Signed Date/Time: 06/22/20 1126 DD/ 1119 Discharge Plan Discharge Prescriptions: No Action atorvastatin 20 mg tablet 20 mg PO DAILY RF: 0 aspirin [Aspir-81] 81 mg Tablet,Delayed Release (Dr/Ec) 81 mg PO DAILY RF: 0 ascorbic acid (vitamin C) [Vitamin C] 500 mg Tablet 500 mg PO DAILY RF: 0 Lester 3-6-9 1 cap PO DAILY RF: 0 Caltrate 600 600 mg calcium (1,500 mg) Tablet 600 mg PO DAILY RF: 0 risperidone 1 mg tablet 1.5 mg PO DAILY RF: 0 Vitamin D3 25 mcg (1,000 unit) Tablet 25 mcg PO DAILY RF: 0 Centrum Silver Women 8 mg iron-400 mcg-300 mcg Tablet 1 tab PO DAILY RF: 0 Coding Level of Care Code ED Stull Installer for Chg Fwd Exam Comprehensive
[2020-06-22 08:51] LABS: ABG PCO2 47.5 mmHg (35-45); ABG PH Result 7.38 (7.35-7.45); Alveolar-Arterial Oxygen Gradi 14.9 mmHg (5-10); Arterial Blood Gas Hematocrit 36.8 % (37-47); Base Excess ABG 2.5 mmol/L (-2.0-2.0); Blood Gas Allen Test Pos; Blood Gas Operator Identificat CAK; Blood Gas Sample Site Radial, left; Blood Gas Sample Type Arterial; Carboxyhemoglobin 0.8 %THgb (0.4-20.1); HCO3 ABG 28.2 mmol/L (22-26); HGB O2 Sat 88.8 % (95-100); Ionized Calcium Level - ABG 1.2 mmol/L (1.1-1.4); Methemoglobin 0.4 % (0.4-1.5); Oxygen Device NC; Oxygen Saturation ABG 89.9; PO2 ABG 52.9 mmHg (80.0-100.0); Potassium Level - ABG 3.5 mmol/L (3.5-5.0)
[2020-06-22 09:07] LABS: Add Urine Microscopic? YES; Bilirubin Urine Neg (Negative); Blood Urine Neg (Negative); Glucose Urine UA Norm (Normal); Ketones Urine Negative (Negative); Leukocyte Esterase Urine Negative (Negative); Nitrate Urine Negative (Negative); Protein Urine Neg (Negative); Urine Appearance Clear (CLEAR); Urine Color Yellow (Yellow); Urobilinogen Urine Norm (Negative); pH Urine 8 (5-7)
[2020-06-22 09:08] LABS: Add Urine Culture? No; Amorphous Sediment Urine 2+ /hpf; Bacteria Urine 2+ /hpf; Squamous Epithelial Cell Urine 0-4 /hpf (0-5)
[2020-06-22 09:24] LABS: Basophils % 0.5 %; Eosinophils # 0.1 10^3/uL (0.0-0.8); Eosinophils % 0.9 %; Hematocrit 37.7 % (37.0-47.0); Hemoglobin 11.6 g/dL (11.5-15.3); Lymphocytes # 1.1 10^3/uL (0.8-4.8); Lymphocytes % 12.5 %; Mean Corpuscular HGB Conc 30.8 g/dL (30.0-36.0); Mean Corpuscular Hemoglobin 28.7 pg (28.0-34.0); Mean Corpuscular Volume 93.3 fL (81-99); Monocytes # 0.5 10^3/uL (0.2-0.9); Monocytes % 5.4 %; Neutrophils # 6.79 10^3/uL (1.8-7.7); Neutrophils % 80.5 %; Nucleated Red Blood Cells % 0 %; Platelet Count 202 10^3/cmm (130-400); Red Blood Count 4.04 10^6/uL (4.1-5.3); Red Cell Distribution Width 13.2 % (12.1-15.1); White Blood Count 8.5 10^3/uL (4.0-10.0)
[2020-06-22 09:48] LABS: Alanine Aminotransferase 10 U/L (0-33); Albumin Level 3.3 g/dL (3.5-5.2); Alkaline Phosphatase 101 IU/L (35-105); Anion Gap 13.6 (5-19); Aspartate Amino Transferase 17 U/L (0-32); Blood Urea Nitrogen 9 mg/dL (8-23); C Reactive Protein 20.1 mg/L (0.0-4.9); Calcium 8.4 mg/dL (8.5-10.5); Carbon Dioxide 27 mmol/L (22-29); Chloride 102 mmol/L (98-107); Globulin 3.3 g/dL (1.3-4.6); Glucose 124 mg/dL (65-115); Osmolality Calculated 288 mOsm/kg (285-295); Potassium 3.6 mmol/L (3.5-5.1); Sodium 139 mmol/L (136-145); Total Bilirubin 0.3 mg/dL (0.15-1.2); Total Protein 6.6 g/dL (6.6-8.7)
[2020-06-22 09:49] LABS: Lactate (Lactic Acid level) 1.2 mmol/L (0.5-2.2)
[2020-06-22 09:56] LABS: Troponin(5th) Baseline 195 ng/L (0-10)
[2020-06-22 10:03] LABS: Influenza A by IFA Negative (Negative); Influenza B by IFA Negative (Negative)
[2020-06-22 10:09] LABS: D Dimer 6.82 ug/mIFEU (0-0.59)
--- NOTE | 2020-06-22 10:17 | CT_ITS ---
WS: [id number] CT CHEST ANGIOGRAPHY WITH REFORMATS HISTORY: elevated d-dimer TECHNIQUE: Contiguous axial images are obtained through the chest during arterial injection of intrav enous contrast. Images are reconstructed to evaluate the pulmonary arteries. MIP imaging also reviewe d. All CT scans at [facility] use at least one of these dose optimization techniques: aut omated exposure control; mA and/or kV adjustment per patient size (includes targeted exams where dose is matched to clinical indication); or iterative reconstruction. CONTRAST: Omnipaque 350; 95 mL IV. DLP: 547.5 mGy.cm COMPARISON: 07/25/2016 Extensive bilateral pulmonary embolic burden. Pulmonary emboli begin in the distal RIGHT and LEFT flavia n pulmonary arteries with extension into the upper lower lobe lobar and segmental branches. There is moderate RIGHT heart strain. RIGHT heart chambers are enlarged with flattening of the intraventricula r septum. Moderate atherosclerosis aorta with no aneurysm. No pericardial or pleural effusion. Mild i nterstitial edema throughout both lungs. No mass or pneumonia. There are numerous small mediastinal, axillary and hilar lymph nodes these are probably reactive. Lymph nodes are less than a centimeter. Small hiatal hernia. CT/CT angio chest PE protcl [id number] IMPRESSION: 1. Extensive bilateral pulmonary emboli with RIGHT heart strain. 2. Mild CHF. 3. Reactive lymph nodes. 4. Cardiomegaly. Notified ELVIRA Keith at 06/22/2020 11:26 AM.
--- NOTE | 2020-06-22 10:20 | ECG_ITS ---
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1940 Requested By: Judy Mcknight Order Number: [id number] Staci MD: SHERRI MATIAS Measurements Intervals [place] Rate: 105 P: 40 HI: 171 QRS: 7 QRSD: 96 T: -18 QT: 342 QTc: 453 Interpretive Statements SINUS TACHYCARDIA POSSIBLE LEFT ATRIAL ENLARGEMENT [-0.1mV P WAVE IN V1/V2] MINIMAL ST DEPRESSION [0.025+ mV ST DEPRESSION] ABNORMAL RHYTHM ECG Compared to ECG 06/22/2020 08:41:36 ST (T wave) deviation now present Myocardial infarct finding no longer present Electronically Signed On 06-23-2020 15:32:06 SUSTAINABILITY ANALYST by SHERRI MATIAS [id number]
[2020-06-22 10:48] LABS: Erythrocyte Sedimentation Rate 64 mm/hr (0-15)
[2020-06-22] MEDS: iohexol 350 mg/mL 100 mL Btl IV (11:10)
[2020-06-22 11:54] LABS: Troponin 5 2HR 264.5 ng/L (0-10); Troponin 5 2HR Delta 69.5 ABS# (0-10)
--- NOTE | 2020-06-22 13:02 | USCV_ITS ---
Carmen Macias Age: 80 Gender: F : 1940 Exam Date: 06/22/2020 13:28 Ordering Phys: Judy Seo Technologist: Keri Montgomery [place] [facility] [place]ication: BILATERAL PE BP: 104 / 93 HR: 105 Rhythm: Sinus Technical Quality: Adequate MEASUREMENTS (Male / Female) Normal Values 2D ECHO LV Diastolic Diameter PLAX 3.8 cm 4.2 - 5.9 / 3.9 - 5.3 cm LV Systolic Diameter PLAX 2.2 cm LV Chamber Size 2.8 cm IVS Diastolic Thickness 0.8 cm 0.6 - 1.0 / 0.6 - 0.9 cm IVS Systolic Thickness 1.6 cm LVPW Diastolic Thickness 0.9 cm 0.6 - 1.0 / 0.6 - 0.9 cm LVPW Systolic Thickness 1.5 cm RV Chamber Size 3.5 cm LV Ejection Fraction 2D Teich 72.3 % LV Ejection Fraction MOD 2C 57.5 % LV Ejection Fraction 2C AL 62.6 % LA Diameter 3.3 cm LA Width 2.0 cm LA Height 5.7 cm RA Width 3.2 cm RA Height 5.1 cm M-MODE LV Diastolic Diameter MM 4.0 cm 4.2 - 5.9 / 3.9 - 5.3 cm LV Systolic Diameter MM 2.6 cm LV Ejection Fraction MM Teich 65.5 % IVS Diastolic Thickness MM 0.8 cm 0.6 - 1.0 / 0.6 - 0.9 cm IVS Systolic Thickness MM 1.2 cm LVPW Diastolic Thickness MM 1.0 cm 0.6 - 1.0 / 0.6 - 0.9 cm LVPW Systolic Thickness MM 1.2 cm RV Diastolic Diameter MM 0.9 cm Aortic Annulus Diameter 3.0 cm LA Ao Ratio MM 1.1 MV E Point Septal Separation 0.2 cm DOPPLER AV Peak Velocity 131.0 cm/s LVOT Peak Velocity 82.3 cm/s MV Area PHT 5.5 cm squared Mitral E to A Ratio 0.4 MV E' Velocity 27.0 cm/s Mitral E to MV E' Ratio 8.0 Mitral E to LV E' Lateral Ratio 8.5 Mitral E to LV E' Septal Ratio 7.8 TR Peak Velocity 315.0 cm/s TR Peak Gradient 39.7 mmHg TR Mean Velocity 225.9 cm/s TR Mean Gradient 23.4 mmHg TR Velocity Time Integral 103.6 cm TV Peak E Velocity 80.0 cm/s Right Atrial Pressure 15.0 mmHg Pulmonary Artery Systolic Pressu 54.7 mmHg PV Peak Velocity 54.0 cm/s RV Acceleration Time 0.1 s RV Ejection Time 0.3 s RV AcT/ET 0.3 FINDINGS Left Ventricle Normal left ventricular cavity size. Moderate left ventricular hypertrophy of concentric type. Left ventricular ejection fraction is estimated at 65 %. Flattened septum in diastole consistent with right ventricle volume overload. Right Ventricle Severely increased right ventricular size. Severely decreased right ventricular systolic function. Severe pulmonary hypertension, RVSP 65 mmHg. Right Atrium Moderately increased right atrial size. Left Atrium The left atrium is normal in size. Mitral Valve Structurally normal mitral valve without significant stenosis or prolapse. There is no mitral regurgitation. Aortic Valve Structurally normal aortic valve without significant sclerosis or stenosis. There is no aortic regurgitation. Tricuspid Valve Moderate tricuspid valve regurgitation. Pulmonic Valve Moderate pulmonary valve regurgitation. Pericardium Normal pericardium without effusion. Aorta Normal ascending aorta dimension. CONCLUSIONS 1-Normal left ventricular cavity size. Moderate left ventricular hypertrophy of concentric type. Left ventricular ejection fraction is estimated at 65 %. Flattened septum in diastole consistent with right ventricle volume overload. 2-Severely increased right ventricular size. Severely decreased right ventricular systolic function. Severe pulmonary hypertension, RVSP 65 mmHg. 3-Moderately increased right atrial size. 4-Moderate tricuspid valve regurgitation. 5-Moderate pulmonary valve regurgitation. 6-Right atrial pressure is around 15 mm of mercury. 7-When compared to the prior echocardiogram dated March 18, 2016 there is severely enlarged right ventricle with severely depressed right ventricle function most consistent with pulmonary hypertension/pulmonary embolism, there is severe pulmonary hypertension of 65mmHg. Kristie Villaseñor MD (Electronically Signed) Final Date: 22 June 2020 19:44 S
[2020-06-22] MEDS: heparin 5,000 unit/mL INJ 1 mL 4000 UNIT IVP (13:33)
[2020-06-22 13:39] LABS: INR 0.97 (0.8-1.2)
[2020-06-22 13:40] LABS: Partial Thromboplastin Time 27.5 SECONDS (23.9-36.7)
--- NOTE | 2020-06-22 14:06 | USCV_ITS ---
Carmen Macias Age: 80 Gender: F : 1940 Exam Date: 06/22/2020 14:26 Ordering Phys: Mio Lennon DO Technologist: Keri Montgomery Exam Location: [facility] [place] Indication: PE HISTORY: Bilateral PEs PROCEDURES: Venous duplex imaging was performed in bilateral lower extremities. The following venous structures were evaluated: common femoral vein, profunda vein, proximal portion of the greater saphenous vein, superficial femoral vein, and the popliteal vein. In addition, the posterior tibial and peroneal trunk were evaluated. Serial compression, augmentation maneuvers, and spectral Doppler flow evaluation were performed. FINDINGS: The Lt GSV vein contains non compressible chronic appearing thrombus from mid Lt GSV to Frederick's canal. Normal 2-D Doppler and augmentation and compressibility throughout the lower extremity venous structures. Additional imaging through the proximal calf veins also reveals no thrombus. Limited evaluation of the greater saphenous vein is patent with no thrombus.. CONCLUSIONS No DVT bilateral lower extremities. Chronic thrombus left GSV. Dr. Renae Shepherd DO (Electronically Signed) Final Date: 22 June 2020 15:06 S
--- NOTE | 2020-06-22 14:20 | ECG_ITS ---
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
[2020-06-22] MEDS: heparin drip 25,000 UNIT/500 ML PREMIX 15.2 UNIT IV (14:54)
[2020-06-22 15:23] LABS: SARS Covid-2 Antigen Negative (Negative)
[2020-06-22 16:02] LABS: Troponin 5 6HR 276.7 ng/L (0-10)
[2020-06-22 16:07] LABS: Troponin 5 6HR Delta 81.7 ng/L (0-12)
--- NOTE | 2020-06-22 17:34 | P.HP_ITS ---
Providers/Chief Complaint Admitting Physician: Pauline Peterson MD Primary Care Provider: Te Gipson MD Chief Complaint: syncope History of Present Illness Carmen Macias is a 80 year old female who presented to the emergency room with dizziness and syncope today. She had gotten up and became dizzy with rising from seated position. She called for her . He was able to lower her to the floor and there was no injury but she was not as responsive and was struggling to breathe for several minutes. EMS was called. Patient had low oxygen levels upon their arrival. She is not normally on oxygen therapy. She does carry a diagnosis of lupus erythematosus by report. Not on any immunosuppressive treatment currently. Sounds like it is primarily joint involvement. She has had a history of a blood clot before but describes only being on aspirin therapy, no anticoagulation. 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 With that stroke she has residual twitches of her lower jaw and has had some confusion and hallucinations off and on. Mrs. Sparks reports pain with deep inspiration on the left side. No report of hemoptysis or recent cough. She has had some episodes of dizziness lately but has generally attributed it to getting up too fast and the like. She has had intermittent headache since arousal after her syncopal spell. No report of recent fever or known sick contacts. Rapid Covid antigen test in the emergency room was negative as were influenza A&B. She was found to have significant troponin elevation and clinically suspicion was for pulmonary embolism. ABG showed 7.3 8/47/52 on 3 L by nasal cannula. D-dimer was elevated at 6.82. CTA of the chest confirmed bilateral pulmonary emboli involving both the right and the left pulmonary arteries extension into segmental branches. Right heart strain was evident and was confirmed on echocardiogram with pulmonary pressures in the 60s. Venous duplex of the lower extremity showed no deep vein thrombosis but there was a chronic thrombus of the left greater saphenous vein identified. Patient denies recent trauma. She does make trips up to [place] for medical care. No recent surgery. He is not as mobile as she used to be related to pain and other comorbid conditions. Mrs. Macias was started on a heparin drip and will be admitted to the ICU. Denies recent melena, hematochezia, hematemesis, nosebleed or other gross bleeding. She has intermittently had issues with some hemorrhoidal bleeding that was minor. She has had a hysterectomy. She does bruise easily. The head was done in the emergency room and did not show any acute bleed. Patient follows with Dr. 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 She has previously followed with Dr. Lai, cardiology at [place]. She does describe some exertional dyspnea and chest pain over the last couple of months. Review of Systems Const: Reports: chills, fatigue and diaphoresis; Denies: fever(s) or change in appetite Eyes: Denies: change in vision ENMT: Denies: throat pain, dry mouth or nasal congestion Card: Reports: chest pain, palpitations, lightheadedness, syncope and dyspnea on exertion; Denies: edema Resp: Reports: pain on inspiration; Denies: dyspnea, productive cough, non-productive cough or hemoptysis GI: Denies: abdominal pain, nausea, vomiting, diarrhea or constipation : Reports: urinary urgency; Denies: difficulty voiding Musc: Reports: back pain (chronic), extremity pain (chronic), joint pain (chronic) and muscle weakness Skin/Breast: Denies: rash or pruritus Neuro: Reports: headache(s) and involuntary movements (lower face since stroke earlier in 2019); Denies: numbness in extremities, weakness in extremities or dizziness Psych: Reports: anxiety, depression, difficulty concentrating and tactile hallucinations Saran/Lymph: Denies: easy bruising or easy bleeding Medications/Allergies Home Medications Medication Instructions Recorded Confirmed Last Taken Type [place] 3-6-9 1 cap PO DAILY 01/15/20 06/22/20 06/21/20 History ascorbic acid (vitamin C) [Vitamin 500 mg PO DAILY 01/15/20 06/22/20 06/21/20 History C] aspirin [Aspir-81] 81 mg PO DAILY 01/15/20 06/22/20 06/21/20 History atorvastatin 20 mg PO BEDTIME 01/15/20 06/22/20 06/21/20 History calcium carbonate [Caltrate 600] 600 mg PO DAILY 06/22/20 06/22/20 06/21/20 History cholecalciferol (vitamin D3) 25 mcg PO DAILY 06/22/20 06/22/20 06/21/20 History [Vitamin D3] [id number]-prnm-FA-lutein 1 tab PO DAILY 06/22/20 06/22/20 06/21/20 History [Centrum Silver Women] risperidone 1 mg PO BEDTIME 06/22/20 06/22/20 06/21/20 History Allergies Allergy/AdvReac Type Severity Reaction Status Date / Time sulfamethoxazole Allergy Unknown Verified 06/22/20 09:55 [From Bactrim] tetanus and diphtheria Allergy Unknown Verified 06/22/20 09:55 toxoids trimethoprim [From Bactrim] Allergy Unknown Verified 06/22/20 09:55 PFSH Acute PFSH: Medical History Hyperlipidemia Lupus (systemic lupus erythematosus) Rheumatoid arthritis Sjogrens syndrome Surgical History History of breast surgery benign tumors History of cataract surgery History of hemorrhoidectomy History of hernia repair bilateral inguinal History of hysterectomy Family History Brother Cancer lung cancer Sister Lupus erythematosus Diabetes Cancer pancreatic cncer Son Cancer colon cancer Mother Diabetes Father CAD (coronary artery disease) Sister Cancer ovarian Social History Smoking and tobacco status: never smoked Alcohol intake: never Substance/Drug Use: never Household members: spouse Marital status details: [birth year]10[birth year]20 61 yrs Female Reproductive History: : 5 Para: 3 Spontaneous abortions: Yes (2) Vitals/I&O/Wt Last Vital Signs Temp 97.5 F L 06/22/20 08:06 Pulse 104 H 06/22/20 14:22 Resp 18 06/22/20 14:22 BP 121/75 06/22/20 14:22 Pulse Ox 93 06/22/20 14:22 Weight last 48 hrs Weight 63.503 kg Physical Exam Const: OTHER: Alert, oriented x3 although answers to some questions or not as detailed or explicit as I would like, cooperative, looks both chronically and acutely ill-appearing HENMT: OTHER: Mild bitemporal wasting, nasopharynx is in place, dry mucous membranes, lips are purplish pink color presently Eye: OTHER: Pupils equally round and reactive to light, glare from previous cataract surgery, extraocular movements intact Neck/C-Spine: OTHER: Supple, JVD noted Resp: OTHER: Shallow respirations, splinting on the left side with deep inspiration, scattered crackles, no wheezes Cardio: OTHER: Regular rhythm, distant heart sounds, 1+ peripheral pulses GI: OTHER: Abdomen soft, nontender, positive bowel sounds : OTHER: Normal external female genitalia Extremity: NARRATIVE EXTREMITY EXAM: No calf tenderness, trace edema, both hands are a bit puffy Neuro: OTHER: Speech clear, moves both feet, 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 Reports that has had prior blood clot but I am wondering if it was not superficial vein as a greater saphenous vein chronic clot was identified on venous duplex of the lower extremities. Currently with evidence of significant right heart strain evidenced on CT scan as well as echocardiogram. Has been started on heparin drip. Reviewed with her and her the possibility of TPA if she were to have any clinical worsening. Also discussed risk of clinical decline necessitating even potential intubation and critical care management. No recent known trauma. No recent urinary. She does travel to [place] for her medical care. Reports several rheumatological diagnoses that would put her at potential risk of thrombosis and has had a known occluded right internal carotid artery. Could have an occult malignancy. 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, on no current treatment beyond supportive Status: Chronic Qualifiers: Systemic lupus erythematosus type: unspecified Systemic lupus erythematosus organ involvement: unspecified Qualified Code(s): M32.9 - Systemic lupus erythematosus, unspecified (8) Rheumatoid arthritis: Reported diagnosis, follows with rheumatology in [facility], on no current treatment beyond supportive Status: Chronic Qualifiers: Rheumatoid arthritis location: multiple sites Rheumatoid factor presence: unspecified presence Qualified Code(s): M06.9 - Rheumatoid arthritis, unspecified (9) CVA (cerebral vascular accident): Looks to have involve the occipital lobe on the right has associated residual confusion, intermittent facial twitches and is well as intermittent hallucinations according to the . She is chronically on risperidone for this and also takes aspirin and statin regularly. Status: Chronic Additional A&P Information Urinary urgency reported at baseline ICU care with close monitoring At risk for acute decline necessitating more aggressive measures including possible TPA or even transfer with intervention For now will continue heparin drip that was started in the emergency room Eventually plan transition to oral management Supportive oxygen therapy IV fluids at O presently Nursing to maintain 2 IVs at all times presently Morphine for pain control Incentive spirometry Ativan if needed for anxiety PPI Home medications as ordered Strict bedrest tonight, discussed with patient as well as her Okay for Fenton catheter if patient agreeable though currently declining Currently keeping on clear liquid diet overnight given the increased oxygen requirements as she is at high risk of requiring additional respiratory support, up to and including the possibility of intubation discussed with patient and and answered questions regarding this We will discuss with Dr. Gipson if he is available tomorrow on the holiday Supportive care otherwise Currently receiving therapeutic anticoagulation Full code Attestations Medical Necessity Statement*: Requires inpatient ICU care for potentially life-threatening situation with bilateral pulmonary emboli associated with oxygen requirement and right heart restrain. 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 for Renal[employer] Cough[employer] Diagnoses Syncope R55 Syncope type: vasovagal syncope Bilateral pulmonary embolism I26.99 Respiratory failure with hypoxia J96.01 Chronicity: acute Elevated troponin R77.8 Hyperlipidemia E78.2 Hyperlipidemia type: mixed hyperlipidemia Sjogrens syndrome M35.01 Sjogren's organ involvement: keratoconjunctivitis Lupus (systemic lupus erythematosus) M32.9 Systemic lupus erythematosus type: unspecified Systemic lupus erythematosus organ involvement: unspecified Rheumatoid arthritis M06.9 Rheumatoid arthritis location: multiple sites Rheumatoid factor presence: unspecified presence CVA (cerebral vascular accident) I63.9
[2020-06-22] MEDS: D5-NS 0.45% + KCL 20 mEq 20 MEQ/1,000 ML BAG 100 MEQ IV (20:17)
[2020-06-22 20:51] LABS: Partial Thromboplastin Time 43.3 SECONDS (23.9-36.7)
[2020-06-22] MEDS: sodium chloride 0.9% 1,000 ML 30 ML IV (20:52)
--- NOTE | 2020-06-22 21:36 | PC.NURSE ---
Patient resting in bed with eyes closed in semi-fowlers position. Patient is very complaints with cares and friendly with staff. Patient is able to voice concerns and make needs known. Patient is on strict bedrest due to bilateral PE's. Heparin gtt running per protocol. Call light within reach. Continue care.
[2020-06-22] MEDS: heparin 5,000 unit/mL INJ 1 mL IVP (22:19)
[2020-06-23] VITALS (166 sets, daily range): BP systolic 82–123; BP diastolic 50–90; PULSE 77–101; RESP 11–38; TEMP 36.7–37.1; O2SAT 90–98
[2020-06-23] MEDS: risperiDONE 1 mg Tablet 0.5 MG PO ×2 (00:08→20:04)
--- NOTE | 2020-06-23 00:13 | PC.NURSE ---
Patient resting in room with eyes closed. No complaints of pain or voices of concern. Call light is within reach. Continue care.
[2020-06-23 04:45] LABS: Basophils % 0.4 %; Eosinophils % 0.1 %; Hematocrit 34.6 % (37.0-47.0); Hemoglobin 10.6 g/dL (11.5-15.3); Lymphocytes # 1.5 10^3/uL (0.8-4.8); Lymphocytes % 16.5 %; Mean Corpuscular HGB Conc 30.6 g/dL (30.0-36.0); Mean Corpuscular Hemoglobin 28.9 pg (28.0-34.0); Mean Corpuscular Volume 94.3 fL (81-99); Mean Platelet Volume 12.1 fL (7.4-10.4); Monocytes # 0.7 10^3/uL (0.2-0.9); Monocytes % 7.5 %; Neutrophils # 6.89 10^3/uL (1.8-7.7); Nucleated Red Blood Cells % 0 %; Platelet Count 206 10^3/cmm (130-400); Red Blood Count 3.67 10^6/uL (4.1-5.3); Red Cell Distribution Width 13.6 % (12.1-15.1); White Blood Count 9.2 10^3/uL (4.0-10.0)
[2020-06-23 04:57] LABS: INR 1.03 (0.8-1.2)
[2020-06-23 05:06] LABS: Partial Thromboplastin Time 83.8 SECONDS (23.9-36.7)
[2020-06-23 05:17] LABS: Alanine Aminotransferase 9 U/L (0-33); Alkaline Phosphatase 85 IU/L (35-105); Anion Gap 14.6 (5-19); Aspartate Amino Transferase 17 U/L (0-32); Blood Urea Nitrogen 11 mg/dL (8-23); Calcium 8.5 mg/dL (8.5-10.5); Carbon Dioxide 26 mmol/L (22-29); Chloride 103 mmol/L (98-107); Globulin 3.3 g/dL (1.3-4.6); Glucose 109 mg/dL (65-115); Magnesium 2.1 mg/dL (1.7-2.3); Osmolality Calculated 290 mOsm/kg (285-295); Potassium 3.6 mmol/L (3.5-5.1); Sodium 140 mmol/L (136-145); Total Bilirubin 0.3 mg/dL (0.15-1.2); Total Protein 6.3 g/dL (6.6-8.7)
--- NOTE | 2020-06-23 05:54 | PC.NURSE ---
Patient continues to rest with eyes closed. Heparin gtt running per protocol. No complaints of pain. No s/s of distress. No voices of concern. Call light within reach. Continue care.
[2020-06-23 08:15] LABS: ABG PH Result 7.44 (7.35-7.45)
[2020-06-23 08:16] LABS: ABG PCO2 40.9 mmHg (35-45); Base Excess ABG 3.3 mmol/L (-2.0-2.0); Blood Gas Operator Identificat GD; HCO3 ABG 27.7 mmol/L (22-26); Oxygen Device NC
[2020-06-23 08:19] LABS: Blood Gas Sample Type ART
[2020-06-23] MEDS: docusate sodium 100 mg Capsule PO ×2 (08:44→18:27)
[2020-06-23] MEDS: aspirin 81 mg EC Tablet PO (08:44)
[2020-06-23] MEDS: pantoprazole DR 40 mg Tablet PO (08:44)
--- NOTE | 2020-06-23 09:56 | PM.PN ---
Subjective Subjective: Interval history: Patient has required increased oxygen overnight but blood pressure and heart rate have remained stable. She is not happy with bed rest but we talked about plan to see how she does getting up with assistance later today. Pleuritic chest pain is improved. Complains of a little bit of numbness around her left ankle. Able to move ankle without difficulty. He is to let us know if it worsens or if anything changes. Vitals/I&O/Wt Last Vital Signs Temp 98.0 F 06/23/20 04:00 Pulse 91 06/23/20 09:29 Resp 18 06/23/20 09:27 BP 115/76 06/23/20 08:15 Pulse Ox 95 06/23/20 09:27 06/22/20 06/23/20 06/23/20 22:59 06:59 14:59 Intake Total 160.426 / 160.426 371.007 / 531.433 250 / 250 Output Total 200 / 200 50 / 250 50 / 50 Balance -39.574 / -39.574 321.007 / 281.433 200 / 200 Weight last 48 hrs Weight 61.915 kg Weight 63.503 kg Physical Exam Const: OTHER: Alert, oriented x3, breathing much easier and able to talk easier. Not as anxious appearing. Neck/C-Spine: OTHER: JVD unchanged Resp: OTHER: Improved aeration, crackles in the bases left greater than right, decreased splinting of the left chest with deep inspiration, doing well, better than expected with incentive spirometer. Cardio: OTHER: Regular rhythm, distant heart sounds, pulses intact GI: OTHER: Abdomen soft, nontender, positive bowel sounds Extremity: NARRATIVE EXTREMITY EXAM: Trace edema Neuro: OTHER: Speech clear, moves all extremities, face symmetric, some numbness subjectively around the left lateral malleolus, does not extend over the lateral surface of the foot or proximally at the present time Skin: OTHER: Pale but overall improved coloration, no mottling or cyanosis Data : 06/23/20 03:27 06/23/20 03:27 A&P Assessment and plan (1) Syncope: Initial presentation, secondary to hypoxemia from pulmonary embolism in the setting of somebody who has intermittent positional vertigo already. Thus far no recurrence. Status: Acute Qualifiers: Syncope type: vasovagal syncope Qualified Code(s): R55 - Syncope and collapse (2) Bilateral pulmonary embolism: Associated with right heart strain noted on CT and echocardiogram. Currently on heparin drip and requiring significant supplemental oxygen. No prior history of such. Etiology unclear but travels to [place] for medical care. Has a history of occluded ICA and reports a diagnosis of lupus, rheumatoid arthritis and Sjogren's for which we do not have many details presently. History of 2 spontaneous abortions. Occult malignancy is certainly within the differential but no obvious source noted on evaluation thus far. COVID-19 rapid antigen was negative. By report has not been on anticoagulation in the past though has had some clotting which I think is in reference to the known ICA occlusion. 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 Status: Acute (3) Respiratory failure with hypoxia: Secondary to PE. Not normally on oxygen. Currently requiring 7 L but breathing much more comfortably. 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 Chronically on aspirin and statin and currently on anticoagulation. 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, on no current treatment beyond supportive Status: Chronic Qualifiers: Systemic lupus erythematosus type: unspecified Systemic lupus erythematosus organ involvement: unspecified Qualified Code(s): M32.9 - Systemic lupus erythematosus, unspecified (8) Rheumatoid arthritis: Reported diagnosis, follows with rheumatology in [facility], on no current treatment beyond supportive Status: Chronic Qualifiers: Rheumatoid arthritis location: multiple sites Rheumatoid factor presence: unspecified presence Qualified Code(s): M06.9 - Rheumatoid arthritis, unspecified (9) CVA (cerebral vascular accident): 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 She is chronically on risperidone for this and also takes aspirin and statin regularly. Status: Chronic Additional A&P Information Urinary urgency reported at baseline Continue ICU care today for close monitoring in the setting of a patient with high risk of rapid clinical decline from PE As she did okay overnight we will advance diet Continue heparin drip Wean oxygen as needed Encourage incentive spirometer use If heart rate and blood pressure remained stable this morning we will see how she does with assisted out of bed this afternoon to allow her to bedside commode but have reiterated that she cannot get up by herself Will eventually need transition to oral anticoagulation Continue IV fluids at KVO Continue to maintain 2 IVs at all times presently Morphine for pain control as needed Stool softeners Ativan if needed for anxiety PPI prophylaxis Continue half of usual respite on dosing Continue home aspirin and statin therapy Have currently held her usual vitamins Okay for Fenton catheter if patient agreeable though currently declining; will discuss with her again if any clinical decline Review case with patient's primary care provider Dr. Gipson. He confirmed rheumatological diagnoses and history as we currently have. Supportive care otherwise Therapeutic anticoagulation provides VTE prophylaxis Full code Attestations Medical Necessity Statement*: Quires ongoing inpatient stay and close monitoring in the ICU presently secondary to significant bilateral pulmonary emboli. 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 [facility] Fwd Diagnoses Syncope R55 Syncope type: vasovagal syncope Bilateral pulmonary embolism I26.99 Respiratory failure with hypoxia J96.01 Chronicity: acute Elevated troponin R77.8 Hyperlipidemia E78.2 Hyperlipidemia type: mixed hyperlipidemia Sjogrens syndrome M35.01 Sjogren's organ involvement: keratoconjunctivitis Lupus (systemic lupus erythematosus) M32.9 Systemic lupus erythematosus type: unspecified Systemic lupus erythematosus organ involvement: unspecified Rheumatoid arthritis M06.9 Rheumatoid arthritis location: multiple sites Rheumatoid factor presence: unspecified presence CVA (cerebral vascular accident) I63.9
[2020-06-23 11:41] LABS: Partial Thromboplastin Time 48.7 SECONDS (23.9-36.7)
[2020-06-23] MEDS: heparin 5,000 unit/mL INJ 1 mL IVP (12:05)
[2020-06-23] MEDS: heparin drip 25,000 UNIT/500 ML PREMIX 21.8 UNIT IV (13:12)
--- NOTE | 2020-06-23 16:27 | PC.NURSE ---
ambulation to chair informed of patient condition throughout day. douglas signs have been WNL, oxygen decreased to 4.5L. Telephone order to ambulate patient with second nurse and to sit in chair. patient tolerated well. vital signs WNL. patient resting comfortably in chair. call light within reach.
[2020-06-23 18:52] LABS: Partial Thromboplastin Time 56.8 SECONDS (23.9-36.7)
[2020-06-23] MEDS: atorvastatin 40 mg Tablet 20 MG PO (20:04)
[2020-06-23] MEDS: sodium chloride 0.9% 1,000 ML 30 ML IV (20:05)
--- NOTE | 2020-06-23 21:15 | PC.NURSE ---
Patient up in chair in room watching television. Patient denies pain. Patient is complaint with cares and staff. Patient is able to get up and use bedside commode now. Call light within reach. Continue care.
[2020-06-24] VITALS (18 sets, daily range): BP systolic 91–166; BP diastolic 56–83; PULSE 71–91; RESP 17–26; TEMP 36.4–38; O2SAT 92–97
--- NOTE | 2020-06-24 00:01 | PC.NURSE ---
Patient resting in bed with eyes closed. Heparin gtt running per protocol. Denies pain. Call light within reach. Continue care.
[2020-06-24 01:44] LABS: Partial Thromboplastin Time 52.8 SECONDS (23.9-36.7)
[2020-06-24] MEDS: heparin 5,000 unit/mL INJ 1 mL IVP ×3 (02:05→15:02)
--- NOTE | 2020-06-24 02:53 | PC.NURSE ---
Patient resting with eyes closed. Patient has been up to use bedside commode and voided 200mL's. Patient also had a bowel movement this shift. Call light within reach. Continue care.
--- NOTE | 2020-06-24 06:13 | PC.NURSE ---
Uneventful shift. Patient is resting with eyes closed. Heparin gtt still running. Patient denies any pain. Patient is using NC at 3 L. Call light within reach. Continue care.
[2020-06-24 07:56] LABS: Basophils % 0.4 %; Eosinophils # 0.1 10^3/uL (0.0-0.8); Eosinophils % 1.6 %; Hematocrit 32.7 % (37.0-47.0); Hemoglobin 10.4 g/dL (11.5-15.3); Lymphocytes # 1.3 10^3/uL (0.8-4.8); Lymphocytes % 15.7 %; Mean Corpuscular HGB Conc 31.8 g/dL (30.0-36.0); Mean Corpuscular Hemoglobin 29.1 pg (28.0-34.0); Mean Corpuscular Volume 91.3 fL (81-99); Monocytes # 0.6 10^3/uL (0.2-0.9); Monocytes % 7.1 %; Nucleated Red Blood Cells % 0 %; Platelet Count 172 10^3/cmm (130-400); Red Blood Count 3.58 10^6/uL (4.1-5.3); Red Cell Distribution Width 13.3 % (12.1-15.1); White Blood Count 8.1 10^3/uL (4.0-10.0)
[2020-06-24 08:07] LABS: Partial Thromboplastin Time 51.5 SECONDS (23.9-36.7)
[2020-06-24] MEDS: pantoprazole DR 40 mg Tablet PO (08:25)
[2020-06-24] MEDS: aspirin 81 mg EC Tablet PO (08:25)
[2020-06-24] MEDS: docusate sodium 100 mg Capsule PO ×2 (08:25→17:17)
--- NOTE | 2020-06-24 09:16 | PM.PN ---
Subjective Subjective: Interval history: Feels better today. Breathing better. Minimal if any pleuritic pain today. Doing okay getting up to side of bed without any dizziness or vital sign changes presently. Remains on 3 L oxygen by nasal cannula. Vitals/I&O/Wt Last Vital Signs Temp 97.6 F 06/24/20 04:00 Pulse 76 06/24/20 08:35 Resp 17 06/24/20 08:00 BP 116/65 06/24/20 08:00 Pulse Ox 95 06/24/20 08:35 06/23/20 06/24/20 06/24/20 22:59 06:59 14:59 Intake Total 946.5 / 1631.907 338.313 / 1970.220 300 / 300 Output Total 400 / 600 300 / 300 Balance 546.5 / 1031.907 338.313 / 1370.220 0 / 0 Weight last 48 hrs Weight 63.645 kg Weight 61.915 kg Physical Exam Const: OTHER: Alert, oriented x3, no increased work of breathing noted today, pleasant, less anxious. Seen sitting up on side of bed drinking her coffee. Neck/C-Spine: OTHER: Decreased JVD Resp: OTHER: Improved aeration with deeper breaths, no splinting of the left lung noted anymore, no rales or rhonchi, no wheezes Cardio: OTHER: Regular rate and rhythm, no murmur, pulses intact GI: OTHER: Abdomen soft, nontender, positive bowel sounds Extremity: NARRATIVE EXTREMITY EXAM: No edema Neuro: OTHER: Speech clear, handgrip equal, face symmetric Skin: OTHER: No mottling or cyanosis, skin pink and warm Data : 06/24/20 07:49 06/23/20 03:27 A&P Assessment and plan (1) Syncope: Initial presentation, secondary to hypoxemia from pulmonary embolism in the setting of somebody who has intermittent positional vertigo already. No recurrence to date. Status: Acute Qualifiers: Syncope type: vasovagal syncope Qualified Code(s): R55 - Syncope and collapse (2) Bilateral pulmonary embolism: Associated with right heart strain/severe pulmonary hypertension noted on CT and echocardiogram. Heparin drip initiated in the emergency room. Initially required up to 7 L of oxygen by nasal cannula though this has been trending downward, currently at 3 L as of 06/24/2020. Significant pleuritic pain present on admission is nearly resolved. No prior history of PE. Etiology unclear but travels to [place] for medical care at times. Not bedridden though pain limits activity. Has a history of occluded ICA and reports a diagnosis of lupus, rheumatoid arthritis and Sjogren's for which we do not have many details. History of 2 spontaneous abortions. Occult malignancy is certainly within the differential but no obvious source noted on evaluation thus far. Reports that she has had regular mammograms without any abnormalities and that her last colonoscopy in 2013 did not show any abnormalities. COVID-19 rapid antigen was negative. By report has not been on anticoagulation in the past though has had some clotting which I think is in reference to the known ICA occlusion. Was found to have a chronic appearing greater saphenous vein thrombus noted on venous duplex this admission. Status: Acute (3) Respiratory failure with hypoxia: Secondary to PE. Not normally on oxygen. Has required as much of 7 L of oxygen; currently on 3 L maintaining good oxygenation. Status: Acute Qualifiers: Chronicity: acute Qualified Code(s): J96.01 - Acute respiratory failure with hypoxia (4) Elevated troponin: Feel this is secondary to demand ischemia from pulmonary embolism and right heart strain. 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 (7) Lupus (systemic lupus erythematosus): Reported diagnosis, follows with rheumatology in [facility], on no current treatment beyond supportive Status: Chronic Qualifiers: Systemic lupus erythematosus organ involvement: unspecified Systemic lupus erythematosus type: unspecified Qualified Code(s): M32.9 - Systemic lupus erythematosus, unspecified (8) Rheumatoid arthritis: Reported diagnosis, follows with rheumatology in [facility], on no current treatment beyond supportive Status: Chronic Qualifiers: Rheumatoid arthritis location: multiple sites Rheumatoid factor presence: unspecified presence Qualified Code(s): M06.9 - Rheumatoid arthritis, unspecified (9) CVA (cerebral vascular accident): 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 She is chronically on risperidone for this and also takes aspirin and statin regularly. Status: Chronic Additional A&P Information Urinary urgency reported at baseline Transfer to floor Continue heparin drip presently given extent of PE at presention; plan transition to oral anticoagulation next 24-48 hours with eliquis or similar as per her pharmacy plan Wean oxygen as able; may require oxygen at discharge for a while Continue incentive spirometer use As vital signs remained stable, will advance activity with PT following Saline lock IV Morphine for pain control as needed, will alter frequency, has not needed Stool softeners Ativan if needed for anxiety, will alter frequency, has not needed Half of usual risperidone dose continued at admission due to acute presentation, seems to be doing okay on lower dose so far so will continue given potential risks of this medication Continue home aspirin and statin therapy Continue artifical tears and biotene spray Home vitamins held at presentation due to respiratory distress, can resume at discharge as appropriate, may consider holding vitamin C given potentail for GI irritation but takes a lower range dose Will need close follow up with Dr Gipson, her PCP, or alternatively with her providers (rheumatology, neurology, cardiology) at [facility] otherwise PPI prophylaxis Therapeutic anticoagulation provides VTE prophylaxis Full code Current disposition plans are home, may need oxygen Attestations Medical Necessity Statement*: Requires ongoing inpatient monitoring given significant bilateral pulmonary emboli currently on IV anticoagulation and still requiring 3 L of oxygen. 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 [facility] Fwd Diagnoses Syncope R55 Syncope type: vasovagal syncope Bilateral pulmonary embolism I26.99 Respiratory failure with hypoxia J96.01 Chronicity: acute Elevated troponin R77.8 Hyperlipidemia E78.2 Hyperlipidemia type: mixed hyperlipidemia Sjogrens syndrome M35.01 Sjogren's organ involvement: keratoconjunctivitis Lupus (systemic lupus erythematosus) M32.9 Systemic lupus erythematosus organ involvement: unspecified Systemic lupus erythematosus type: unspecified Rheumatoid arthritis M06.9 Rheumatoid arthritis location: multiple sites Rheumatoid factor presence: unspecified presence CVA (cerebral vascular accident) I63.9
--- NOTE | 2020-06-24 09:34 | PC.NURSE ---
transfered to room 252
[2020-06-24] MEDS: heparin drip 25,000 UNIT/500 ML PREMIX 24.4 UNIT IV (14:33)
[2020-06-24 14:37] LABS: Partial Thromboplastin Time 48.3 SECONDS (23.9-36.7)
[2020-06-24] MEDS: lanolin oint 7 gm 1 APPLIC TOPICAL (17:17)
[2020-06-24 20:48] LABS: Partial Thromboplastin Time 60.8 SECONDS (23.9-36.7)
[2020-06-24] MEDS: risperiDONE 1 mg Tablet 0.5 MG PO (21:28)
[2020-06-24] MEDS: atorvastatin 40 mg Tablet 20 MG PO (21:28)
[2020-06-25] VITALS (8 sets, daily range): BP systolic 104–139; BP diastolic 71–78; PULSE 79–99; RESP 18–20; TEMP 36.7–37.8; O2SAT 91–93
[2020-06-25 02:38] LABS: Basophils % 0.2 %; Eosinophils % 0.2 %; Hematocrit 33.9 % (37.0-47.0); Hemoglobin 10.8 g/dL (11.5-15.3); Lymphocytes # 1.3 10^3/uL (0.8-4.8); Lymphocytes % 13.3 %; Mean Corpuscular HGB Conc 31.9 g/dL (30.0-36.0); Mean Corpuscular Hemoglobin 28.9 pg (28.0-34.0); Mean Corpuscular Volume 90.6 fL (81-99); Mean Platelet Volume 11.4 fL (7.4-10.4); Monocytes # 0.4 10^3/uL (0.2-0.9); Monocytes % 4.4 %; Neutrophils # 7.79 10^3/uL (1.8-7.7); Neutrophils % 81.6 %; Nucleated Red Blood Cells % 0 %; Platelet Count 174 10^3/cmm (130-400); Red Blood Count 3.74 10^6/uL (4.1-5.3); Red Cell Distribution Width 13.3 % (12.1-15.1); White Blood Count 9.6 10^3/uL (4.0-10.0)
[2020-06-25 02:51] LABS: Partial Thromboplastin Time 51.9 SECONDS (23.9-36.7)
[2020-06-25] MEDS: heparin 5,000 unit/mL INJ 1 mL IVP (03:46)
[2020-06-25] MEDS: aspirin 81 mg EC Tablet PO (08:48)
[2020-06-25] MEDS: pantoprazole DR 40 mg Tablet PO (08:48)
[2020-06-25] MEDS: docusate sodium 100 mg Capsule PO ×2 (08:48→18:01)
[2020-06-25] MEDS: acetaminophen 500 mg Tablet PO (08:50)
--- NOTE | 2020-06-25 09:15 | PC.SOCIAL ---
IMM Page 2 of IMM explained to patient. Initialed, dated, and timed and placed in chart. Copy provided to patient.
--- NOTE | 2020-06-25 09:46 | XRR_ITS ---
PROCEDURE INFORMATION: Exam: XR Chest, 1 View Exam date and time: 06/25/2020 9:48 AM Age: 80 years old Clinical indication: Shortness of breath. TECHNIQUE: Imaging protocol: XR of the chest Views: 1 view. COMPARISON: CR XR chest 1V portable [id number] 06/22/2020 8:25 AM FINDINGS: Lungs: Poor inspiration. Decreased lung volumes. Bilateral bronchial wall thickening and prominence of the interstitial markings. However, no septal line formation or fissural thickening. No focal peripheral lung consolidation, air bronchogram formation, or silhouette sign. Pleural space: No gross pleural effusion. No pneumothorax. Heart/Mediastinum: The cardiac silhouette is enlarged. Vasculature: The thoracic aorta is atherosclerotic. Bones/joints: No acute osseous abnormality. XR/XR chest 1V portable [id number] IMPRESSION: Bronchial/interstitial edema or inflammation.
[2020-06-25] MEDS: apixaban 5 mg Tablet 10 MG PO ×2 (10:12→18:01)
[2020-06-25 10:39] LABS: Partial Thromboplastin Time 65.3 SECONDS (23.9-36.7)
[2020-06-25 12:10] LABS: Procalcitonin 0.05 ng/mL (0-0.5)
[2020-06-25 12:23] LABS: Alanine Aminotransferase 9 U/L (0-33); Albumin Level 3.1 g/dL (3.5-5.2); Alkaline Phosphatase 100 IU/L (35-105); Anion Gap 13.2 (5-19); Aspartate Amino Transferase 14 U/L (0-32); Blood Urea Nitrogen 6 mg/dL (8-23); C Reactive Protein 156.4 mg/L (0.0-4.9); Carbon Dioxide 27 mmol/L (22-29); Chloride 101 mmol/L (98-107); Globulin 3.8 g/dL (1.3-4.6); Glucose 107 mg/dL (65-115); Osmolality Calculated 284 mOsm/kg (285-295); Potassium 3.2 mmol/L (3.5-5.1); Sodium 138 mmol/L (136-145); Total Bilirubin 0.4 mg/dL (0.15-1.2); Total Protein 6.9 g/dL (6.6-8.7)
[2020-06-25 13:00] LABS: Urine Appearance Clear (CLEAR); Urine Color Colorless (Yellow); pH Urine 7 (5-7)
[2020-06-25 13:01] LABS: Add Urine Culture? No; Add Urine Microscopic? YES; Bacteria Urine TRACE /hpf; Bilirubin Urine Neg (Negative); Blood Urine 2+ (Negative); Glucose Urine UA Norm (Normal); Ketones Urine Negative (Negative); Leukocyte Esterase Urine Negative (Negative); Nitrate Urine Negative (Negative); Protein Urine Neg (Negative); RBC Urine RARE /hpf (0-2); Urobilinogen Urine Norm (Negative)
[2020-06-25] MEDS: atorvastatin 40 mg Tablet 20 MG PO (21:11)
[2020-06-25] MEDS: risperiDONE 1 mg Tablet 0.5 MG PO (21:12)
[2020-06-26] VITALS (9 sets, daily range): BP systolic 115–162; BP diastolic 71–78; PULSE 83–94; RESP 15–18; TEMP 36.7–38; O2SAT 91–97
[2020-06-26 05:06] LABS: Basophils % 0.2 %; Hematocrit 33.4 % (37.0-47.0); Hemoglobin 10.6 g/dL (11.5-15.3); Lymphocytes % 7.5 %; Mean Corpuscular HGB Conc 31.7 g/dL (30.0-36.0); Mean Corpuscular Hemoglobin 29.1 pg (28.0-34.0); Mean Corpuscular Volume 91.8 fL (81-99); Mean Platelet Volume 11.9 fL (7.4-10.4); Monocytes # 0.4 10^3/uL (0.2-0.9); Monocytes % 3.4 %; Neutrophils # 11.29 10^3/uL (1.8-7.7); Neutrophils % 88.3 %; Nucleated Red Blood Cells % 0 %; Platelet Count 194 10^3/cmm (130-400); Red Blood Count 3.64 10^6/uL (4.1-5.3); Red Cell Distribution Width 13.3 % (12.1-15.1); White Blood Count 12.8 10^3/uL (4.0-10.0)
[2020-06-26 05:21] LABS: Alanine Aminotransferase 9 U/L (0-33); Albumin Level 2.8 g/dL (3.5-5.2); Alkaline Phosphatase 98 IU/L (35-105); Anion Gap 10.8 (5-19); Aspartate Amino Transferase 13 U/L (0-32); Blood Urea Nitrogen 6 mg/dL (8-23); Calcium 8.8 mg/dL (8.5-10.5); Carbon Dioxide 30 mmol/L (22-29); Chloride 98 mmol/L (98-107); Globulin 3.7 g/dL (1.3-4.6); Glucose 131 mg/dL (65-115); Magnesium 1.7 mg/dL (1.7-2.3); Osmolality Calculated 281 mOsm/kg (285-295); Phosphorus 2.7 mg/dL (2.5-4.5); Sodium 136 mmol/L (136-145); Total Bilirubin 0.4 mg/dL (0.15-1.2); Total Protein 6.5 g/dL (6.6-8.7)
[2020-06-26 05:33] LABS: Potassium 2.8 mmol/L (3.5-5.1)
[2020-06-26] MEDS: potassium chloride ER 20 mEq Tablet 40 MEQ PO (06:19)
[2020-06-26] MEDS: lidocaine 1% 5 ML in potassium chloride premix 100 ML 25 ML IV (06:19)
[2020-06-26] MEDS: apixaban 5 mg Tablet 10 MG PO ×2 (09:43→17:43)
[2020-06-26] MEDS: acetaminophen 500 mg Tablet PO (09:43)
[2020-06-26] MEDS: multivitamin therapeutic Tablet 1 TAB PO (09:43)
[2020-06-26] MEDS: pantoprazole DR 40 mg Tablet PO (09:43)
[2020-06-26] MEDS: ascorbic acid 500 mg Tablet PO (09:43)
[2020-06-26] MEDS: aspirin 81 mg EC Tablet PO (09:43)
[2020-06-26] MEDS: cholecalciferol (vitamin D3) 1,000 unit Tablet 1000 UNIT PO (09:43)
[2020-06-26] MEDS: calcium carbonate 500 mg Chew Tablet PO (09:43)
[2020-06-26] MEDS: docusate sodium 100 mg Capsule PO ×2 (09:43→17:43)
[2020-06-26] MEDS: cefTRIAXone 1,000 MG in sodium chloride 0.9% (plus) 50 ML 100 MG IV (10:11)
--- NOTE | 2020-06-26 10:18 | PC.NURSE ---
Ambulating in hallway via walker and gait belt with therapy, no distress noted, currently on Room air and oxygen saturation being monitored by Physical therapy.
--- NOTE | 2020-06-26 12:10 | PM.PN ---
Subjective Subjective: Interval history: This is progress note from 06/25/2020: Patient was examined this morning, she is laying in bed, she tells me that she had a fever last night, no cough, no dysuria, no hematuria, no calf pain, no calf swelling, she still remains on 4 L, still has some shortness of breath with exertion, overall doing better Vitals/I&O/Wt Last Vital Signs Temp 98.2 F 06/26/20 11: Pulse 85 06/26/20 11: Resp 16 06/26/20 11:29 BP 115/71 06/26/20 11:29 Pulse Ox 92 06/26/20 11:29 06/25/20 06/26/20 06/26/20 22:59 06:59 14:59 Intake Total 200 / 200 Output Total 400 / 400 900 / 1300 600 / 600 Balance -400 / 435.24 -900 / -464.76 -400 / -400 Weight last 48 hrs Weight 62.641 kg Weight 61.87 kg Physical Exam Const: COMMON NORMALS: no acute distress and patient oriented x3 HENMT: COMMON NORMALS: normocephalic HEAD & SCALP: normocephalic Neck/C-Spine: COMMON NORMALS: no JVD Resp: COMMON NORMALS: normal respiratory effort, No retractions, No use of accessory muscles and clear to auscultation bilaterally AUSCULTATION: clear to auscultation bilaterally Cardio: COMMON NORMALS: no JVD, regular rate, regular rhythm, S1 normal heart sound present and S2 normal heart sound present RATE: regular rate RHYTHM: regular rhythm HEART SOUNDS: S1 normal heart sound present and S2 normal heart sound present GI: COMMON NORMALS: Normal to inspection, nondistended, normoactive bowel sounds present, Soft to palpation, non-tender, No hepatosplenomegaly present, no masses and no bruits PALPATION: Yes Soft to palpation and Yes No hepatosplenomegaly present Extremity: COMMON NORMALS: capillary refill normal, no clubbing, cyanosis or edema, no calf tenderness and no pedal edema Neuro: COMMON NORMALS: patient oriented x3 Psych: COMMON NORMALS: mental status grossly normal Data : 06/26/20 04:19 06/26/20 04:19 Micro: Microbiology 06/25/20 11:14 Blood Culture - Preliminary Blood NEGATIVE TO DATE 06/25/20 11:21 Blood Culture - Preliminary Blood NEGATIVE TO DATE 06/25/20 12:45 Urine Culture - Preliminary Urine,Voided Gram Negative Rods A&P Assessment and plan (1) Syncope: Initial presentation, secondary to hypoxemia from pulmonary embolism in the setting of somebody who has intermittent positional vertigo already. No recurrence to date. Status: Acute Qualifiers: Syncope type: vasovagal syncope Qualified Code(s): R55 - Syncope and collapse (2) Bilateral pulmonary embolism: Associated with right heart strain/severe pulmonary hypertension noted on CT and echocardiogram. Heparin drip initiated in the emergency room. Initially required up to 7 L of oxygen by nasal cannula though this has been trending downward, currently at 3 L as of 06/24/2020. Significant pleuritic pain present on admission is nearly resolved. No prior history of PE. Etiology unclear but travels to [place] for medical care at times. Not bedridden though pain limits activity. Has a history of occluded ICA and reports a diagnosis of lupus, rheumatoid arthritis and Sjogren's for which we do not have many details. History of 2 spontaneous abortions. Occult malignancy is certainly within the differential but no obvious source noted on evaluation thus far. Reports that she has had regular mammograms without any abnormalities and that her last colonoscopy in 2013 did not show any abnormalities. COVID-19 rapid antigen was negative. By report has not been on anticoagulation in the past though has had some clotting which I think is in reference to the known ICA occlusion. Was found to have a chronic appearing greater saphenous vein thrombus noted on venous duplex this admission. -We will transition off heparin drip, to Eliquis Status: Acute (3) Respiratory failure with hypoxia: Secondary to PE. Not normally on oxygen. Has required as much of 7 L of oxygen; currently on 4 L maintaining good oxygenation. Status: Acute Qualifiers: Chronicity: acute Qualified Code(s): J96.01 - Acute respiratory failure with hypoxia (4) Elevated troponin: Feel this is secondary to demand ischemia from pulmonary embolism and right heart strain. 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 (7) Lupus (systemic lupus erythematosus): Reported diagnosis, follows with rheumatology in [facility], on no current treatment beyond supportive Status: Chronic Qualifiers: Systemic lupus erythematosus type: unspecified Systemic lupus erythematosus organ involvement: unspecified Qualified Code(s): M32.9 - Systemic lupus erythematosus, unspecified (8) Rheumatoid arthritis: Reported diagnosis, follows with rheumatology in [facility], on no current treatment beyond supportive Status: Chronic Qualifiers: Rheumatoid arthritis location: multiple sites Rheumatoid factor presence: unspecified presence Qualified Code(s): M06.9 - Rheumatoid arthritis, unspecified (9) CVA (cerebral vascular accident): 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 She is chronically on risperidone for this and also takes aspirin and statin regularly. Status: Chronic (10) Fever: -We will order blood cultures, urine cultures, chest x-ray, inflammatory markers Status: Acute Additional A&P Information On the general medical floors Stop heparin drip, transition to Eliquis Wean oxygen as able; may require oxygen at discharge for a while Continue incentive spirometer use As vital signs remained stable, will advance activity with PT following Saline lock IV Morphine for pain control as needed, will alter frequency, has not needed Stool softeners Ativan if needed for anxiety, will alter frequency, has not needed Half of usual risperidone dose continued at admission due to acute presentation, seems to be doing okay on lower dose so far so will continue given potential risks of this medication Continue home aspirin and statin therapy Continue artifical tears and biotene spray Home vitamins held at presentation due to respiratory distress, can resume at discharge as appropriate, may consider holding vitamin C given potentail for GI irritation but takes a lower range dose Will need close follow up with Dr Gipson, her PCP, or alternatively with her providers (rheumatology, neurology, cardiology) at [facility] otherwise PPI prophylaxis Therapeutic anticoagulation provides VTE prophylaxis Full code Current disposition plans are home, may need oxygen Attestations Medical Necessity Statement*: Patient requires hospitalization for pulmonary emboli, with right heart strain, now with fevers Coding Level of Care Code 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 Syncope R55 Syncope type: vasovagal syncope Bilateral pulmonary embolism I26.99 Respiratory failure with hypoxia J96.01 Chronicity: acute Elevated troponin R77.8 Hyperlipidemia E78.2 Hyperlipidemia type: mixed hyperlipidemia Sjogrens syndrome M35.01 Sjogren's organ involvement: keratoconjunctivitis Lupus (systemic lupus erythematosus) M32.9 Systemic lupus erythematosus type: unspecified Systemic lupus erythematosus organ involvement: unspecified Rheumatoid arthritis M06.9 Rheumatoid arthritis location: multiple sites Rheumatoid factor presence: unspecified presence CVA (cerebral vascular accident) I63.9 Fever R50.9
--- NOTE | 2020-06-26 12:34 | PM.PN ---
Subjective Subjective: Interval history: This morning patient was examined, she is actually sitting up to the side of the bed, in her walker, she tells me that when she ambulates she is doing better, but still having some shortness of breath, no lightheaded, no dizziness, no chest pain is down to 2 L nasal cannula, still has low-grade fevers overnight, no cough, no dysuria, no hematuria, no calf pain, no calf swelling, no diarrhea Vitals/I&O/Wt Last Vital Signs Temp 98.2 F 06/26/20 11: Pulse 85 06/26/20 11: Resp 16 06/26/20 11: BP 115/71 06/26/20 11: Pulse Ox 92 06/26/20 11:29 06/25/20 06/26/20 06/26/20 22:59 06:59 14:59 Intake Total 440 / 440 Output Total 400 / 400 900 / 1300 600 / 600 Balance -400 / 435.24 -900 / -464.76 -160 / -160 Weight last 48 hrs Weight 62.641 kg Weight 61.87 kg Physical Exam Const: COMMON NORMALS: no acute distress and patient oriented x3 HENMT: COMMON NORMALS: normocephalic HEAD & SCALP: normocephalic Neck/C-Spine: COMMON NORMALS: no JVD Resp: COMMON NORMALS: normal respiratory effort, No retractions, No use of accessory muscles and clear to auscultation bilaterally AUSCULTATION: clear to auscultation bilaterally Cardio: COMMON NORMALS: no JVD, regular rate, regular rhythm, S1 normal heart sound present and S2 normal heart sound present RATE: regular rate RHYTHM: regular rhythm HEART SOUNDS: S1 normal heart sound present and S2 normal heart sound present GI: COMMON NORMALS: Normal to inspection, nondistended, normoactive bowel sounds present, Soft to palpation, non-tender, No hepatosplenomegaly present, no masses and no bruits PALPATION: Yes Soft to palpation and Yes No hepatosplenomegaly present Extremity: COMMON NORMALS: capillary refill normal, no clubbing, cyanosis or edema, no calf tenderness and no pedal edema Neuro: COMMON NORMALS: patient oriented x3 Psych: COMMON NORMALS: mental status grossly normal Data : 06/26/20 04:19 06/26/20 04:19 Micro: Microbiology 06/25/20 11:14 Blood Culture - Preliminary Blood NEGATIVE TO DATE 06/25/20 11:21 Blood Culture - Preliminary Blood NEGATIVE TO DATE 06/25/20 12:45 Urine Culture - Preliminary Urine,Voided Gram Negative Rods A&P Assessment and plan (1) Syncope: Initial presentation, secondary to hypoxemia from pulmonary embolism in the setting of somebody who has intermittent positional vertigo already. No recurrence to date. Status: Acute Qualifiers: Syncope type: vasovagal syncope Qualified Code(s): R55 - Syncope and collapse (2) Bilateral pulmonary embolism: Associated with right heart strain/severe pulmonary hypertension noted on CT and echocardiogram. Heparin drip initiated in the emergency room. Initially required up to 7 L of oxygen by nasal cannula though this has been trending downward, currently at 3 L as of 06/24/2020. Significant pleuritic pain present on admission is nearly resolved. No prior history of PE. Etiology unclear but travels to [place] for medical care at times. Not bedridden though pain limits activity. Has a history of occluded ICA and reports a diagnosis of lupus, rheumatoid arthritis and Sjogren's for which we do not have many details. History of 2 spontaneous abortions. Occult malignancy is certainly within the differential but no obvious source noted on evaluation thus far. Reports that she has had regular mammograms without any abnormalities and that her last colonoscopy in 2013 did not show any abnormalities. COVID-19 rapid antigen was negative. By report has not been on anticoagulation in the past though has had some clotting which I think is in reference to the known ICA occlusion. Was found to have a chronic appearing greater saphenous vein thrombus noted on venous duplex this admission. -Continue Eliquis Status: Acute (3) Respiratory failure with hypoxia: Secondary to PE. Not normally on oxygen. Has required as much of 7 L of oxygen; currently on 2 L maintaining good oxygenation. Status: Acute Qualifiers: Chronicity: acute Qualified Code(s): J96.01 - Acute respiratory failure with hypoxia (4) Elevated troponin: Feel this is secondary to demand ischemia from pulmonary embolism and right heart strain. 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 (7) Lupus (systemic lupus erythematosus): Reported diagnosis, follows with rheumatology in [facility], on no current treatment beyond supportive Status: Chronic Qualifiers: Systemic lupus erythematosus type: unspecified Systemic lupus erythematosus organ involvement: unspecified Qualified Code(s): M32.9 - Systemic lupus erythematosus, unspecified (8) Rheumatoid arthritis: Reported diagnosis, follows with rheumatology in [facility], on no current treatment beyond supportive Status: Chronic Qualifiers: Rheumatoid arthritis location: multiple sites Rheumatoid factor presence: unspecified presence Qualified Code(s): M06.9 - Rheumatoid arthritis, unspecified (9) CVA (cerebral vascular accident): 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 She is chronically on risperidone for this and also takes aspirin and statin regularly. Status: Chronic (10) Fever: -Likely secondary to gram-negative UTI -Currently on Rocephin -Blood cultures so far unremarkable -Chest x-ray shows bronchial/interstitial edema or inflammation -White blood cell count 12.8 this morning, neutrophil count 11.29 -Continue to monitor for fevers, ensure she is afebrile for the next 24 hours Status: Acute (11) Hypokalemia: Potassium 2.8, receiving IV potassium replacement Status: Acute Additional A&P Information On the general medical floors Stop heparin drip, transition to Eliquis Wean oxygen as able; may require oxygen at discharge for a while Continue incentive spirometer use As vital signs remained stable, will advance activity with PT following Saline lock IV Morphine for pain control as needed, will alter frequency, has not needed Stool softeners Ativan if needed for anxiety, will alter frequency, has not needed Half of usual risperidone dose continued at admission due to acute presentation, seems to be doing okay on lower dose so far so will continue given potential risks of this medication Continue home aspirin and statin therapy Continue artifical tears and biotene spray Home vitamins held at presentation due to respiratory distress, can resume at discharge as appropriate, may consider holding vitamin C given potentail for GI irritation but takes a lower range dose Will need close follow up with Dr Gipson, her PCP, or alternatively with her providers (rheumatology, neurology, cardiology) at [facility] otherwise PPI prophylaxis Therapeutic anticoagulation provides VTE prophylaxis Full code Current disposition plans are home, may need oxygen Attestations Medical Necessity Statement*: Patient requires hospitalization for pulmonary emboli, right heart strain, acute respiratory failure, fevers, hypokalemia 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 Level of Care 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 Syncope R55 Syncope type: vasovagal syncope Bilateral pulmonary embolism I26.99 Respiratory failure with hypoxia J96.01 Chronicity: acute Elevated troponin R77.8 Hyperlipidemia E78.2 Hyperlipidemia type: mixed hyperlipidemia Sjogrens syndrome M35.01 Sjogren's organ involvement: keratoconjunctivitis Lupus (systemic lupus erythematosus) M32.9 Systemic lupus erythematosus type: unspecified Systemic lupus erythematosus organ involvement: unspecified Rheumatoid arthritis M06.9 Rheumatoid arthritis location: multiple sites Rheumatoid factor presence: unspecified presence CVA (cerebral vascular accident) I63.9 Fever R50.9 Hypokalemia E87.6
[2020-06-26] MEDS: risperiDONE 1 mg Tablet 0.5 MG PO (21:22)
[2020-06-26] MEDS: atorvastatin 40 mg Tablet 20 MG PO (21:22)
[2020-06-26] MEDS: magnesium hydroxide 30 mL UDC PO (21:22)
--- NOTE | 2020-06-26 23:47 | PC.NURSE ---
Pt was weaned off oxygen during dayshift. While rounding on the pt, she was asleep with eyes closed, breathing was even and unlabored but her O2 saturation was 85%. This financial writer applied 2L NC and pt O2 saturation went up to 95% immediately.
[2020-06-27] VITALS (7 sets, daily range): BP systolic 129–151; BP diastolic 74–79; PULSE 81–93; RESP 15–18; TEMP 36.9–37.7; O2SAT 88–95
[2020-06-27 04:26] LABS: Basophils % 0.2 %; Eosinophils # 0.2 10^3/uL (0.0-0.8); Eosinophils % 1.7 %; Hematocrit 34.1 % (37.0-47.0); Hemoglobin 10.9 g/dL (11.5-15.3); Lymphocytes # 1.5 10^3/uL (0.8-4.8); Mean Corpuscular Hemoglobin 28.8 pg (28.0-34.0); Mean Corpuscular Volume 90.2 fL (81-99); Monocytes # 0.5 10^3/uL (0.2-0.9); Monocytes % 4.6 %; Neutrophils # 7.62 10^3/uL (1.8-7.7); Neutrophils % 78.1 %; Nucleated Red Blood Cells % 0 %; Platelet Count 206 10^3/cmm (130-400); Red Blood Count 3.78 10^6/uL (4.1-5.3); Red Cell Distribution Width 13.4 % (12.1-15.1); White Blood Count 9.8 10^3/uL (4.0-10.0)
[2020-06-27 05:06] LABS: Procalcitonin 0.11 ng/mL (0-0.5)
[2020-06-27 05:19] LABS: Alanine Aminotransferase 14 U/L (0-33); Albumin Level 2.8 g/dL (3.5-5.2); Alkaline Phosphatase 110 IU/L (35-105); Anion Gap 13.8 (5-19); Aspartate Amino Transferase 18 U/L (0-32); Blood Urea Nitrogen 8 mg/dL (8-23); C Reactive Protein 197.9 mg/L (0.0-4.9); Calcium 8.9 mg/dL (8.5-10.5); Carbon Dioxide 30 mmol/L (22-29); Chloride 99 mmol/L (98-107); Globulin 3.8 g/dL (1.3-4.6); Glucose 105 mg/dL (65-115); Magnesium 1.8 mg/dL (1.7-2.3); Osmolality Calculated 287 mOsm/kg (285-295); Phosphorus 2.6 mg/dL (2.5-4.5); Potassium 3.8 mmol/L (3.5-5.1); Sodium 139 mmol/L (136-145); Total Bilirubin 0.4 mg/dL (0.15-1.2); Total Protein 6.6 g/dL (6.6-8.7)
[2020-06-27] MEDS: calcium carbonate 500 mg Chew Tablet PO (08:12)
[2020-06-27] MEDS: cholecalciferol (vitamin D3) 1,000 unit Tablet 1000 UNIT PO (08:12)
[2020-06-27] MEDS: apixaban 5 mg Tablet 10 MG PO ×2 (08:13→16:44)
[2020-06-27] MEDS: docusate sodium 100 mg Capsule PO (08:13)
[2020-06-27] MEDS: multivitamin therapeutic Tablet 1 TAB PO (08:13)
[2020-06-27] MEDS: aspirin 81 mg EC Tablet PO (08:13)
[2020-06-27] MEDS: ascorbic acid 500 mg Tablet PO (08:13)
[2020-06-27] MEDS: pantoprazole DR 40 mg Tablet PO (08:13)
[2020-06-27] MEDS: cefTRIAXone 1,000 MG in sodium chloride 0.9% (plus) 50 ML 100 MG IV (08:39)
--- NOTE | 2020-06-27 09:25 | PC.SOCIAL ---
IMM Updated Page 2 of IMM updated and given to patient. Initialed, dated, and timed and placed back in chart.
--- NOTE | 2020-06-27 11:56 | P.DS_ITS ---
Discharge Providers Date of Admission: 06/22/20 16:58 Date of Discharge: June 27, 2020 Attending Provider at Admission: Pauline Peterson MD Attending Provider at Discharge: Chandu Yi MD Primary Care Provider: Te Gipson MD Diagnoses at Discharge Discharge Diagnosis (1) Syncope: Status: Acute Qualifiers: Syncope type: vasovagal syncope Qualified Code(s): R55 - Syncope and collapse (2) Bilateral pulmonary embolism: Status: Acute (3) Respiratory failure with hypoxia: Status: Acute Qualifiers: Chronicity: acute Qualified Code(s): J96.01 - Acute respiratory failure with hypoxia (4) Elevated troponin: Status: Acute (5) Hyperlipidemia: Status: Chronic Qualifiers: Hyperlipidemia type: mixed hyperlipidemia Qualified Code(s): E78.2 - Mixed hyperlipidemia (6) Sjogrens syndrome: Status: Chronic Qualifiers: Sjogren's organ involvement: keratoconjunctivitis Qualified Code(s): 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 (7) Lupus (systemic lupus erythematosus): Status: Chronic Qualifiers: Systemic lupus erythematosus type: unspecified Systemic lupus erythematosus organ involvement: unspecified Qualified Code(s): M32.9 - Syste loren lupus erythematosus, unspecified (8) Rheumatoid arthritis: Status: Chronic Qualifiers: Rheumatoid arthritis location: multiple sites Rheumatoid factor presence: unspecified presence Qualified Code(s): M06.9 - Rheumatoid arthritis, unspecified (9) CVA (cerebral vascular accident): Status: Chronic Permanent problem details: residual confusion at times and facial twitch lower face, some hallucinations, takes risperidone, aspirin and statin (10) Fever: Status: Acute (11) Hypokalemia: Status: Acute Reason for Visit Reason for Visit: syncope Hospital Course Hospital Course This is a 80-year-old female with a past medical history of hyperlipidemia, lupus, rheumatoid arthritis, Sjogren's syndrome, history of occipital lobe stroke, history of right internal carotid artery stenosis, history of blood clots in the past only on aspirin, who follows with physicians in [facility] and MD Campos, who presents to [facility] for for dizziness and syncope Patient was admitted to [facility] for syncope and acute respiratory failure with hypoxia secondary to bilateral pulmonary emboli, and elevated troponin, with right heart strain, and severe pulmonary hypertension. She was admitted to the ICU, started on heparin drip, and oxygen therapy, clinically monitored. Patient clinically improved, moved to general medical floors, transitioned to Eliquis, down to 1 to 2 L nasal cannula, ambulating without significant symptomatology. I have discharged the patient on Eliquis, oxygen therapy, close follow with primary care provider as outpatient. I have also advised patient to monitor for bleeding, and if so come back to emergency room. In terms of the etiology of her pulmonary emboli, it is unclear at this point, as she is up-to-date on her mammography and colonoscopies, she does have a history of hypercoagulability associated with rheumatoid arthritis and lupus and Sjogren syndrome as above. She is not exactly sure what has happened with subsequent follow-ups,Nonetheless I will have patient follow-up with Dr. Wilson as outpatient. Patient's echocardiogram did show right heart strain, and elevated troponins, I will have patient follow-up with cardiology, with repeat echocardiogram in 6 weeks. Patient does have evidence of severe pulmonary hypertension, associated pulmonary emboli, ambulating without significant symptomatology, 1 to 2 L nasal cannula, will have patient follow-up with pulmonary for consideration of right heart cath. For her lupus, Sjogren's syndrome, rheumatoid arthritis, she is not on immunosuppressive therapy, I will have patient follow-up with rheumatology here in [place]. Patient also had fevers associated UTI on admission, urine cultures grew E. coli, pansensitive, discharged on ciprofloxacin. Physical Exam Const: COMMON NORMALS: no acute distress and patient oriented x3 HENMT: COMMON NORMALS: normocephalic HEAD & SCALP: normocephalic Neck/C-Spine: COMMON NORMALS: no JVD Resp: COMMON NORMALS: normal respiratory effort, No retractions, No use of accessory muscles and clear to auscultation bilaterally AUSCULTATION: clear to auscultation bilaterally Cardio: COMMON NORMALS: no JVD, regular rate, regular rhythm, S1 normal heart sound present and S2 normal heart sound present RATE: regular rate RHYTHM: regular rhythm HEART SOUNDS: S1 normal heart sound present and S2 normal heart sound present GI: COMMON NORMALS: Normal to inspection, nondistended, normoactive bowel sounds present, Soft to palpation, non-tender, No hepatosplenomegaly present, no masses and no bruits PALPATION: Yes Soft to palpation and Yes No hepatosplenomegaly present Extremity: COMMON NORMALS: capillary refill normal, no clubbing, cyanosis or edema, no calf tenderness and no pedal edema Neuro: COMMON NORMALS: patient oriented x3 Psych: COMMON NORMALS: mental status grossly normal Discharge Data Data Completed and Pending: Completed Studies During Hospitalization Category Date Time Status CT angio chest PE protcl [id number] Urge nt Cat Scan 06/22/20 10:[address] head wo con* 7 [id number] Stat Cat Scan 06/22/20 08:19 Completed XR chest 1V karina ble [id number] Routine Exams 06/25/20 09:46 Completed XR chest 1V karina ble [id number] Stat Exams 06/22/20 08:20 Completed CV echo complete* [id number] Urgent Ultrasound 06/22/20 13:02 [place] [id number] Urgent Ultrasound 06/22/20 14:06 Completed Pending at discharge Category Date Time Status Arterial Blood Ga s W/O Coox AM LABS Lab 06/23/20 07:49 Results Blood Culture Sta t Lab 06/25/20 11:14 Results C Reactive Protei n AM LABS Lab 06/28/20 04:00 Ordered C Reactive Protei n AM LABS Lab 06/29/20 04:00 Ordered Complete Blood Co unt w/Auto AM LABS Lab 06/28/20 04:00 Ordered Comprehensive Met abolic Panel AM LA BS Lab 06/28/20 04:00 Ordered Magnesium AM LABS Lab 06/28/20 04:00 Ordered [place]-3 and -6 Fa tty Acids DAILY Lab 06/26/20 04:19 Received Phosphorus AM LAB S Lab 06/28/20 04:00 Ordered Procalcitonin AM LABS Lab 06/28/20 04:00 Ordered Procalcitonin AM LABS Lab 06/29/20 04:00 Ordered Sputum Culture an d Gram Stain Stat Lab 06/26/20 16:10 Results Urine Culture Sta t Lab 06/25/20 12:45 Results Labs from last 24 hours 06/27/20 06/27/20 03:44 03:44 WBC 9.8 RBC 3.78 L Hgb 10.9 L Hct 34.1 L MCV 90.2 MCH 28.8 MCHC 32.0 RDW 13.4 Plt Count 206 MPV 12.0 H Neut % (Auto) 78.1 Lymph % (Auto) 15.0 Sully % (Auto) 4.6 Eos % (Auto) 1.7 Baso % (Auto) 0.2 Neut # (Auto) 7.62 Lymph # (Auto) 1.5 Sully # (Auto) 0.5 Eos # (Auto) 0.2 Baso # (Auto) 0.0 Nucleated RBC % (a uto) 0 Nucleated RBCs # 0.0 Sodium 139 Potassium 3.8 Chloride 99 Carbon Dioxide 30 H Anion Gap 13.8 BUN 8 Creatinine 0.6 GFR Calculation Not Reportable Glucose 105 Calculated Osmolal ity 287 Calcium 8.9 Phosphorus 2.6 Magnesium 1.8 Total Bilirubin 0.4 AST 18 ALT 14 Alkaline Phosphata se 110 H C-Reactive Protein 197.9 H Total Protein 6.6 Albumin 2.8 L Globulin 3.8 Procalcitonin 0.11 Vitals: Last Vital Signs Temp 98.8 F 06/27/20 11:20 Pulse 81 06/27/20 11:20 Resp 17 06/27/20 11:20 BP 129/77 06/27/20 11:20 Pulse Ox 95 06/27/20 11:20 Discharge Plan Discharge Patient Disposition: Home Condition: Stable Prescriptions: New pantoprazole 40 mg Tablet,Delayed Release (Dr/Ec) 40 mg PO DAILY 30 Days Qty: 30 RF: 0 Eliquis DVT-PE Treat 30D Start 5 mg (74 tabs) tablets,dose pack See Rx Instructions .ROUTE .COMPLEX Qty: 74 RF: 0 Cipro 500 mg tablet 500 mg PO BID 5 Days Qty: 10 RF: 0 Continued atorvastatin 20 mg tablet 20 mg PO BEDTIME RF: 0 aspirin [Aspir-81] 81 mg Tablet,Delayed Release (Dr/Ec) 81 mg PO DAILY RF: 0 ascorbic acid (vitamin C) [Vitamin C] 500 mg Tablet 500 mg PO DAILY RF: 0 [place] 3-6-9 1 cap PO DAILY RF: 0 calcium carbonate 600 mg calcium (1,500 mg) Tablet 600 mg PO DAILY RF: 0 risperidone 1 mg tablet 1 mg PO BEDTIME RF: 0 Vitamin D3 25 mcg (1,000 unit) Tablet 25 mcg PO DAILY RF: 0 Centrum Silver Women 8 mg iron-400 mcg-300 mcg Tablet 1 tab PO DAILY RF: 0 Discharge Orders: Discharge Order (Routine); Ordered 06/27/20 Ordered By: Chandu Yi Other Ambulatory Orders: Complete Blood Count w/Auto (Routine) Timeframe: 1 Week Location: Determined by Patient Ordered By: Chandu Yi Comprehensive Metabolic Panel (Routine) Timeframe: 1 Week Facility: [facility] - Location: Lab - Main Lab Ordered By: Chandu Yi Referrals: Donald Wilson MD [Hospitalist] - 1 month (extensive PE) Hope Olea MD [Physician] - 6 Weeks (right heart strain after PE) Discharge Diet: Cardiac Discharge Activity: Resume usual activity Patient Instructions: Ciprofloxacin (By mouth), Pantoprazole (By mouth), Apixaban (By mouth), Pulmonary Embolism (DC), Hypoxia (GEN) Activity Restrictions/Additional Instructions: -If you have worsening shortness of breath, cough please go to the emergency room -If you have bloody or black stools, bloody vomit, or bloody cough go to the emergency room -Please hydrate well -Please take antibiotics for urinary tract infection Discharge Attestations Time Spent in Discharge Care*: less than 30 min Quality Metrics Clinical Quality Measures During this hospital stay, did patient experience: None Coding Level of Care Code Acute Neon Tube Bender for Chg Fwd Diagnoses Syncope R55 Syncope type: vasovagal syncope Bilateral pulmonary embolism I26.99 Respiratory failure with hypoxia J96.01 Chronicity: acute Elevated troponin R77.8 Hyperlipidemia E78.2 Hyperlipidemia type: mixed hyperlipidemia Sjogrens syndrome M35.01 Sjogren's organ involvement: keratoconjunctivitis Lupus (systemic lupus erythematosus) M32.9 Systemic lupus erythematosus type: unspecified Systemic lupus erythematosus organ involvement: unspecified Rheumatoid arthritis M06.9 Rheumatoid arthritis location: multiple sites Rheumatoid factor presence: unspecified presence CVA (cerebral vascular accident) I63.9 Fever R50.9 Hypokalemia E87.6
--- NOTE | 2020-06-27 15:19 | PC.NURSE ---
Patient's granddaughter Kymberly requesting a call from and her number is [phone]. Bank Appraiser notified Dr Yi.
--- NOTE | 2020-06-27 17:16 | PC.NURSE ---
patient and given discharge instructions and verbalized understanding of instructions. patient given home O2 by HOME. patient taken to private vehicle via wheelchair by rfp writer.
--- NOTE | 2020-06-28 14:31 | PC.NURSE ---
Clarification of physician order. Take 10 mg Eliquis po BID X 7 days then 5 mg BID indefinitely or until seen by fast foods worker at [place].
== END 2020-06-27 17:18 | disposition home or self-care (01) | DRG 175 ==
LOC: ER 13:15 → ICU 17:18 → MEDSURG 06-24 09:34
PROVIDERS: Nurse Practitioner Family; Student in an Organized Health Care Education/Training Program; Admitting Provider Hospitalist; Emergency Provider Family Medicine; PCP Family Medicine; Visit Provider Family Medicine
DX: I26.99 Other pulmonary embolism without acute cor pulmonale (principal); J96.01 Acute respiratory failure with hypoxia; I82.812 Embolism and thrombosis of superficial veins of left lower extremity; N39.0 Urinary tract infection, site not specified; R55 Syncope and collapse; M32.19 Other organ or system involvement in systemic lupus erythematosus; M35.01 Sjogren syndrome with keratoconjunctivitis; I69.998 Other sequelae following unspecified cerebrovascular disease; F44.89 Other dissociative and conversion disorders; R25.3 Fasciculation; I65.21 Occlusion and stenosis of right carotid artery; E78.2 Mixed hyperlipidemia; M06.9 Rheumatoid arthritis, unspecified; H81.10 Benign paroxysmal vertigo, unspecified ear; E87.6 Hypokalemia; I51.9 Heart disease, unspecified; Z79.82 Long term (current) use of aspirin; B96.20 Unspecified Escherichia coli [E. coli] as the cause of diseases classified elsewhere; I27.20 Pulmonary hypertension, unspecified
CPT/HCPCS: 12345; 36415; 36600; 70450; 71045; 71275; 80051; 80053; 81001; 82330; 82542; 82803; 82805; 83605; 83735; 84100; 84145; 84484; 85025; 85378; 85610; 85651; 85730; 86140; 87040; 87070; 87086; 87186; 87205; 87426; 87804; 93005; 93306; 93970; 94664; 96375; 97110; 97161; 97165; 97530; 97535; 99283; J0696; J1644; J3480; J7030; Q9967

== ENCOUNTER 2020-07-05 10:04 | Outpatient (CLI) | payer MEDICARE, BC, SELFPAY ==
--- NOTE | 2020-07-05 16:48 | ONC CON_ITS ---
Dr. Wilson New Patient Note Patient: Carmen Macias Unit #: [id number]: 1940 Dicatated By: Donald Wilson M.D.Date of Visit: Jul 05, 2020 Onc MED New Patient/Consult Referring Physician: Chandu Yi Chief Complaint: Pulmonary embolism. History of Present Illness: This is a 80-year-old woman with a recent episode of pulmonary embolism and associated right heart strain. She has known autoimmune disease which includes rheumatoid arthritis, Sjogren's syndrome, and systemic lupus. She has not recently been on immunosuppressive therapy, but she had previously been on treatment with hydroxychloroquine. On 06/22/2020 she presented to the emergency room after she had passed out at home. Her CT pulmonary angiogram showed extensive bilateral pulmonary emboli beginning in the distal right and and left main pulmonary arteries with extension into the upper and lower lobe lobar and segmental branches. There was associated moderate right heart strain. Also noted were numerous subcentimeter mediastinal, axillary, and hilar lymph nodes, felt to be most likely reactive. Echocardiogram showed severely increased right ventricular size and severely decreased right ventricular systolic function with severe pulmonary hypertension, RVSP 65 mmHg. Those findings were new compared to a previous study from February 2016. She was admitted to the hospital and placed on an IV heparin infusion. She improved clinically and she was discharged home on 06/27/2020 on anticoagulation with apixaban 10 mg twice daily. 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 There was no evidence for deep vein thrombosis. She has no other apparent risk factors for thromboembolism. She had been on hormone replacement therapy in the past, but that was stopped somewhere in the range of 20 years ago. She is beginning to feel somewhat better. She still has very limited activity, but her energy is coming up and she is able to ambulate with a walker. Her ECOG score is 2. She has good appetite. She has lost a little weight, felt to be most likely due to fluid loss. She has not had fever or night sweats. She occasionally has hot flashes. She mostly stays cold. She has shortness of breath, but her breathing has been okay with oxygen. She has occasional cough to clear her throat. She has some pain in her ribs when she takes a deep breath. She otherwise has not had chest pain. She reports having occasional nausea. She recently developed diarrhea after completing antibiotic therapy for a urinary tract infection. She has frequent urination, but bladder function is otherwise been okay. She has joint pain, especially in her hands and ankles. She very seldom has headache. She sometimes has dizziness if she gets up too fast. She has some numbness in her left ankle and foot. She has been bruising easily on the Eliquis. Past Medical History: Her medical history includes hyperlipidemia, rheumatoid arthritis, Sjogren's syndrome, and systemic lupus erythematosus. Past Surgical History: Her surgical/procedural history includes bilateral cataract excisions with lens implants, breast biopsy for benign disease, hemorrhoidectomy, hysterectomy without oophorectomy, and inguinal hernia repair bilaterally. Medications: Aspirin 1 Tablet (of 81 mg) Tablet, enteric coated Oral daily, Atorvastatin Calcium 1 Tablet (of 20 mg) Oral at bedtime, Calcium 600+D 1 Tablet (of 600-400 mg - Units) Oral daily, Eliquis 1 Tablet (of 5 mg) Oral b.i.d., Multivitamin 1 Tablet Oral daily, [place]man 3-6-9 1 CA 125 Units/mL Capsule Oral daily, Pantoprazole Sodium 1 Tablet (of 40 mg) Tablet, enteric coated Oral daily, risperiDONE 1 Tablet (of 1 mg) Oral daily, Vitamin C 1 Capsule (of 500 mg) Oral daily, Vitamin D3 1 Tablet (of 25 mcg) Oral daily Allergies: Bactrim and Tetanus-Diphtheria Toxoids Td. Social History: Ms. Macias is . She is a non-smoker. She does not drink alcohol. Family History: Father with heart attack at age 87. Mother at age 76 with complications of dementia. A brother of lung cancer and another brother with staph infection complicating diabetes. A sister of pancreatic cancer, another of lung cancer, and another of colon cancer. Another sister of leukemia. A daughter has diabetes and a grandson has been diagnosed with sarcoidosis. There is no history of thromboembolism in the family, but there have been mulitple family members with autoimmune disease. Review Of Symptoms: Constitutional - Her energy is coming up now, but she still has very limited activity. Appetite is good. She has lost a little weight, most likely fluid related. She has not had fever or night sweats. She has occasional hot flashes. She mainly stays cold all the time. ECOG score is 2, Eyes - She occasionally has blurred vision, ENMT - No hearing loss or tinnitus. Her nose runs a lot. No mouth sores. No sore throat or difficulty swallowing, Hematologic/Lymphatic - She has a lot of bruising, Respiratory - She has shortness of breath, but her breathing is okay with oxygen. She coughs to clear her throat. She has pain in her ribs with a deep breath. No hemoptysis, Cardiovascular - No angina pain. No palpitations, Gastrointestinal - She occasionally has nausea. No heartburn or acid reflux. She recently has had diarrhea, presumably due to antibiotic. No blood in the stool or black stools, Genitourinary (F) - She has recently completed antibiotic for urinary tract infection. No dysuria or hematuria. She has urinary frequency. No urgency or incontinence, Musculoskeletal - She has joint pain associated with her lupus, especially in her hands and ankles, Integumentary - No skin rash, Neurologic - She very seldom has headache. She sometimes has dizziness if she gets up too fast. She has numbness in her left ankle and foot. No other focal neurologic symptoms, Psychiatric - She has some anxiety. No depression. No insomnia. Vital Signs: Performed on Jul 05, 2020 11:06: 5, 25.13, 1.63 sq.m, 62.00 in, 99 %, 81 /min, 20 /min, 163/70 mm(hg) (HIGH), 99.1 F (HIGH), and 137.4 lbs (HIGH). Physical Examination: Constitutional - She appears generally weak and frail, Eyes - Sclerae nonicteric. Conjunctivae clear, ENMT - No lesions noted in the oral cavity, Neck - No mass or thyromegaly, Hematologic/Lymphatic - No cervical, clavicular, or axillary adenopathy, Respiratory - Lungs are clear with diminished air movement bilaterally, Cardiovascular - Heart rhythm is regular. There is no murmur, gallop, or rub noted, Abdomen - Soft and non-tender. Liver and spleen are not enlarged. There is no abdominal mass or ascites noted and there is no inguinal adenopathy, Back/Spine - No spine or CVA tenderness noted, Extremities - Mild lower extremity edema. There is a small pulsatile nodule overlying the left radial artery. She has multiple ecchymosis/purpuric lesions, Integumentary - No rashes. No suspicious skin lesions noted, Neurologic - No focal neurologic deficits noted. Impression: 1. Patient with recent episode of bilateral pulmonary emboli with associated right heart strain. She does appear to be showing clinical improvement on anticoagulation with apixaban. 2. She has underlying autoimmune disease including rheumatoid arthritis, Sjogren's syndrome, and systemic lupus. 3. She has no other known precipitating cause for the embolism. Plan: With an unprovoked episode of major pulmonary embolism, she is advised to continue anticoagulation indefinitely as long as she has no bleeding or other complications with it. In this setting, the major concerns for a precipitating cause would be a lupus type anticoagulant or underlying malignancy. As such, I would recommend checking for anticardiolipin antibodies and for antiglycoprotein I antibodies, and I also would include a CT abdomen/pelvis along with a repeat CT pulmonary angiogram, which should be done sometime within the next 2 to 4 weeks. In the meantime, I also suggested that she stop aspirin to reduce her bleeding risk. In addition, I will schedule her for an arterial Doppler study of the left wrist to make sure the subcutaneous nodule is not associated with the artery. I will arrange for the other evaluation to be done through Dr. Gipson. I will likely just be seeing her again on an as needed basis. Signed By: Donald Wilson M.D. <<Signature on File>>
== END 2020-07-05 10:05 | disposition home or self-care (01) ==
LOC: ONCMED 10:08
PROVIDERS: PCP Family Medicine; Visit Provider Internal Medicine Medical Oncology
DX: I26.99 Other pulmonary embolism without acute cor pulmonale (principal); Z79.01 Long term (current) use of anticoagulants; R22.32 Localized swelling, mass and lump, left upper limb; M06.9 Rheumatoid arthritis, unspecified; M35.00 Sjogren syndrome, unspecified; M32.9 Systemic lupus erythematosus, unspecified; Z79.82 Long term (current) use of aspirin
CPT/HCPCS: 76882; 99205

== ENCOUNTER 2020-07-05 12:33 | Outpatient (CLI) | payer MEDICARE, BC, SELFPAY ==
--- NOTE | 2020-07-05 | US_ITS ---
LT WRIST PALPABLE LUMP No pseudoaneurysm. Solid mass measures 8x5 mm with tail extending superficial . No psuedoaneurysm. Probable epidermal inclusion cyst. 05 July 2020 13:52 MTDD
== END 2020-07-05 12:34 | disposition home or self-care (01) ==
PROVIDERS: PCP Family Medicine; Visit Provider Internal Medicine Medical Oncology
DX: R22.32 Localized swelling, mass and lump, left upper limb (principal)
CPT/HCPCS: 76882

== ENCOUNTER → 2020-08-04 09:56 | Outpatient (BNVA) | payer MEDICARE, BC, SELFPAY | PROVIDERS: PCP Family Medicine; Visit Provider Internal Medicine Rheumatology | DX: M06.9 Rheumatoid arthritis, unspecified (principal); M35.01 Sjogren syndrome with keratoconjunctivitis; M32.9 Systemic lupus erythematosus, unspecified; I26.99 Other pulmonary embolism without acute cor pulmonale; Z86.73 Personal history of transient ischemic attack (TIA), and cerebral infarction without residual deficits | CPT/HCPCS: 99204 ==

== ENCOUNTER 2020-11-04 12:40 | Outpatient (CLI) | payer MEDICARE, BC, SELFPAY ==
--- NOTE | 2020-11-04 12:45 | USCV_ITS ---
Carmen Macias Age: 80 Gender: F : 1940 Exam Date: 11/04/2020 13:09 Ordering Phys: Hope Olea MD ([email or web address]) Technologist: Bozena Arauz [place] [facility] [place]: Pulmonary embolism BP: 187 / 90 HR: 82 Rhythm: Sinus Technical Quality: Fair MEASUREMENTS (Male / Female) Normal Values 2D ECHO LV Diastolic Diameter PLAX 2.5 cm 4.2 - 5.9 / 3.9 - 5.3 cm LV Systolic Diameter PLAX 1.9 cm IVS Diastolic Thickness 1.8 cm 0.6 - 1.0 / 0.6 - 0.9 cm IVS Systolic Thickness 3.1 cm LVPW Diastolic Thickness 1.7 cm 0.6 - 1.0 / 0.6 - 0.9 cm LVPW Systolic Thickness 1.4 cm LVOT Diameter 2.0 cm LV Ejection Fraction 2D Teich 54.7 % LV Ejection Fraction MOD 2C 69.0 % LV Ejection Fraction 2C AL 68.3 % LA Diameter 2.6 cm LA Width 3.6 cm LA Height 3.3 cm RA Width 3.5 cm RA Height 3.9 cm Aorta at Sinotubular Diameter 2.2 cm M-MODE LV Diastolic Diameter MM 4.1 cm 4.2 - 5.9 / 3.9 - 5.3 cm LV Systolic Diameter MM 2.5 cm LV Ejection Fraction MM Teich 70.9 % IVS Diastolic Thickness MM 1.4 cm 0.6 - 1.0 / 0.6 - 0.9 cm IVS Systolic Thickness MM 1.5 cm LVPW Diastolic Thickness MM 1.0 cm 0.6 - 1.0 / 0.6 - 0.9 cm LVPW Systolic Thickness MM 1.3 cm Aortic Annulus Diameter 2.8 cm LA Ao Ratio MM 1.0 MV E Point Septal Separation 0.3 cm DOPPLER AV Peak Velocity 153.0 cm/s LVOT Peak Velocity 91.0 cm/s AV Area Cont Eq vti 2.2 cm squared AV Area Cont Eq pk 1.8 cm squared MV Area PHT 5.0 cm squared Mitral E to A Ratio 0.9 MV E' Velocity 43.5 cm/s Mitral E to MV E' Ratio 10.4 Mitral E to LV E' Lateral Ratio 11.7 Mitral E to LV E' Septal Ratio 9.6 TR Peak Velocity 264.7 cm/s TR Peak Gradient 28.0 mmHg Right Atrial Pressure 3.0 mmHg Pulmonary Artery Systolic Pressu 31.0 mmHg PV Peak Velocity 100.0 cm/s RV Acceleration Time 0.1 s RV Ejection Time 0.3 s RV AcT/ET 0.4 FINDINGS Left Ventricle Normal left ventricular size, systolic function and increased wall thickness, with no regional wall motion abnormalities. Left ventricular ejection fraction is estimated at 70 %. Normal diastolic function. Right Ventricle Normal right ventricular size and systolic function. Right ventricular systolic pressure 31 mmHg. Right Atrium Normal right atrial size. Left Atrium Normal left atrial size. Mitral Valve Moderate mitral annular calcification. Thickened mitral valve. No mitral valve stenosis. No mitral valve regurgitation. Aortic Valve Structurally normal trileaflet aortic valve. No aortic valve stenosis. No aortic valve regurgitation. Tricuspid Valve Structurally normal tricuspid valve. No tricuspid valve stenosis. Mild tricuspid valve regurgitation. Pulmonic Valve Structurally normal pulmonic valve. No pulmonary valve stenosis. Trace pulmonary valve regurgitation. Pericardium No pericardial effusion. Aorta Normal size aortic root and proximal ascending aorta. CONCLUSIONS 1. Normal left ventricular size, systolic function and increased wall thickness, with no regional wall motion abnormalities. Left ventricular ejection fraction is estimated at 70 %. Normal diastolic function. 2. Normal right ventricular size and systolic function. 3. Mild tricuspid valve regurgitation. 4. Pulmonary artery pressure estimated at 31 mm Hg. 5. When compared to previous echocardiogram dated 06/22/20, right ventricular systolic function has improved. Hope Olea MD (Electronically Signed) Final Date: 06 November 2020 15:55 S
== END 2020-11-04 12:41 | disposition home or self-care (01) ==
PROVIDERS: PCP Family Medicine; Visit Provider Internal Medicine Cardiovascular Disease
DX: I26.99 Other pulmonary embolism without acute cor pulmonale (principal); I07.1 Rheumatic tricuspid insufficiency
CPT/HCPCS: 93306

== ENCOUNTER 2021-05-29 10:50 | Outpatient (CLI) | payer MEDICARE, BC, SELFPAY ==
--- NOTE | 2021-05-29 11:02 | XRR_ITS ---
PROCEDURE INFORMATION: Exam: XR Chest Exam date and time: 05/29/2021 11:02 AM Age: 81 years old Clinical indication: Dyspnea; Additional info: R06.00 - dyspnea, unspecified TECHNIQUE: Imaging protocol: XR of the chest. Views: 2 views. Total images: 2 COMPARISON: CR (CHEST, ) 06/25/2020 9:51 AM FINDINGS: Lungs: No acute focal pulmonary opacities are detected. Pleural spaces: There is blunting of both costophrenic angles, suggestive of chronic pleural thickening. Heart/Mediastinum: Unremarkable. No cardiomegaly. Vasculature: Atherosclerosis is evident. Bones/joints: Osseous structures are unchanged from the prior exam. Soft tissues: Scarring versus epicardial fat at the left lung base. XR/XR chest 2V* [id number] IMPRESSION: 1. There is blunting of both costophrenic angles, suggestive of chronic pleural thickening. 2. Scarring versus epicardial fat at the left lung base. 3. No acute focal pulmonary opacities are detected. Radiation Dose CTDIVOL = (mGy): DLP = (mGy-cm)
== END 2021-05-29 10:51 | disposition home or self-care (01) ==
LOC: RAD 10:58
PROVIDERS: PCP Family Medicine; Visit Provider Internal Medicine Critical Care Medicine
DX: R06.00 Dyspnea, unspecified (principal); I26.99 Other pulmonary embolism without acute cor pulmonale
CPT/HCPCS: 71046

== ENCOUNTER → 2021-07-27 14:24 | Outpatient (BNVA) | payer MEDICARE, BC, SELFPAY | PROVIDERS: PCP Family Medicine; Visit Provider Nurse Practitioner Family | DX: N39.46 Mixed incontinence (principal); N81.9 Female genital prolapse, unspecified | CPT/HCPCS: 81003 ==

== ENCOUNTER → 2021-09-07 13:11 | Outpatient (BNVA) | payer MEDICARE, BC, SELFPAY | PROVIDERS: PCP Family Medicine; Visit Provider Urology | DX: N39.41 Urge incontinence (principal); N81.11 Cystocele, midline; I63.9 Cerebral infarction, unspecified; I26.99 Other pulmonary embolism without acute cor pulmonale; M35.01 Sjogren syndrome with keratoconjunctivitis | CPT/HCPCS: 81003 ==

== ENCOUNTER → 2021-10-31 14:02 | Outpatient (BNVA) | payer MEDICARE, BC, SELFPAY | PROVIDERS: PCP Family Medicine; Visit Provider Internal Medicine Critical Care Medicine | DX: I26.99 Other pulmonary embolism without acute cor pulmonale (principal); R06.00 Dyspnea, unspecified; M06.9 Rheumatoid arthritis, unspecified; R60.0 Localized edema; E78.5 Hyperlipidemia, unspecified; L93.0 Discoid lupus erythematosus; M35.00 Sjogren syndrome, unspecified | CPT/HCPCS: 99214 ==

== ENCOUNTER → 2022-01-05 07:21 | Outpatient (BNVA) | payer MEDICARE, BC, SELFPAY | PROVIDERS: PCP Family Medicine; Visit Provider Family Medicine | DX: E78.5 Hyperlipidemia, unspecified (principal) | CPT/HCPCS: 80061 ==

== ENCOUNTER → 2022-01-23 10:37 | Outpatient (BNVA) | payer MEDICARE, BC, SELFPAY | PROVIDERS: PCP Family Medicine; Visit Provider Urology | DX: N39.46 Mixed incontinence (principal); N81.9 Female genital prolapse, unspecified | CPT/HCPCS: 81003; 99213 ==

== ENCOUNTER → 2022-01-30 11:01 | Outpatient (BNVA) | payer MEDICARE, BC, SELFPAY | PROVIDERS: PCP Family Medicine; Visit Provider Family Medicine | DX: M32.9 Systemic lupus erythematosus, unspecified (principal); R63.4 Abnormal weight loss | CPT/HCPCS: 80053; 83880; 84443; 85025; 85651; 86141 ==

== ENCOUNTER → 2022-06-15 08:59 | Outpatient (BNVA) | payer MEDICARE, BC, SELFPAY | PROVIDERS: PCP Family Medicine; Visit Provider Family Medicine | DX: N39.41 Urge incontinence (principal) | CPT/HCPCS: 81000; 87086 ==

== ENCOUNTER → 2022-08-02 08:37 | Outpatient (BNVA) | payer MEDICARE, BC, SELFPAY | PROVIDERS: PCP Family Medicine; Visit Provider Internal Medicine Pulmonary Disease | DX: I26.99 Other pulmonary embolism without acute cor pulmonale (principal); R60.0 Localized edema; Z79.01 Long term (current) use of anticoagulants; Z86.2 Personal history of diseases of the blood and blood-forming organs and certain disorders involving the immune mechanism | CPT/HCPCS: 99214 ==

== ENCOUNTER 2022-08-26 19:28 | Emergency (ER) | payer MEDICARE, BC, SELFPAY ==
[2022-08-26 19:34] VITALS: BP 164/74; PULSE 101; RESP 16; TEMP 38; O2SAT 93
--- NOTE | 2022-08-26 19:44 | CTR_ITS ---
PROCEDURE INFORMATION: Exam: CT Head Without Contrast Exam date and time: 08/26/2022 8:28 PM Age: 82 years old Clinical indication: Altered mental status/memory loss; Additional info: AMS TECHNIQUE: Imaging protocol: Computed tomography of the head without contrast. Radiation optimization: All CT scans at this facility use at least one of these dose optimization techniques: automated exposure control; mA and/or kV adjustment per patient size (includes targeted exams where dose is matched to clinical indication); or iterative reconstruction. Other protocol: This patient has received 0 known CTs and 0 known cardiac nuclear medicine studies in the 12 months prior to the current study. COMPARISON: CT head wo con* [id number] 06/22/2020 8:39 AM RADIATION DOSE METRICS: Total DLP (mGy-cm): 1141.59 FINDINGS: Brain: No hemorrhage. No edema. 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 Mild diffuse cerebral atrophy and sequela of chronic small vessel ischemic disease. No mass effect. Cerebral ventricles: No ventriculomegaly. Paranasal sinuses: Partially fluid-filled right sphenoid sinus. Mucosal retention cyst noted in the left maxillary sinus. The rest of the paranasal sinuses are well pneumatized. Mastoid air cells: Visualized mastoid air cells are well aerated. Bones/joints: Unremarkable. No acute fracture. Soft tissues: Unremarkable. CT/CT head wo con* [id number] IMPRESSION: 1. No acute intracranial abnormality. 2. Encephalomalacia from old infarct in the right parieto-occipital lobes. 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
--- NOTE | 2022-08-26 19:44 | XRR_ITS ---
PROCEDURE INFORMATION: Exam: XR Chest Exam date and time: 08/26/2022 8:20 PM Age: 82 years old Clinical indication: Fever; Additional info: Fever AMS TECHNIQUE: Imaging protocol: Radiologic exam of the chest. Views: 1 view. COMPARISON: CR XR chest 2V* [id number] 05/29/2021 11:23 AM FINDINGS: Lungs: No consolidation. Pleural spaces: No pleural effusion. No pneumothorax. Heart/Mediastinum: Mild cardiomegaly. Bones/joints: Visualized osseous structures are intact. XR/XR chest 1V portable [id number] IMPRESSION: No consolidation.
--- NOTE | 2022-08-26 19:47 | ECG_ITS ---
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 Measurements Intervals [place] Rate: 89 P: 12 NC: 145 QRS: -9 QRSD: 92 T: 21 QT: 360 QTc: 439 Interpretive Statements SINUS RHYTHM Compared to ECG 06/22/2020 15:08:32 Sinus tachycardia no longer present Electronically Signed On 08-26-2022 21:40:46 PROGRAM TRAINER by Parker Estrada M.D. [id number]
--- NOTE | 2022-08-26 20:09 | ED_ITS ---
HPI - Weakness General: Chief complaint: Weakness Stated complaint: Fever\Unresponsive\ Time Seen by Provider: 08/26/22 19:41 History of Present Illness: 82-year-old female with a history of multiple medical problems comes in from home with generalized weakness and fever. Family notes that she has had a relative decrease in health status over the past few days with increasing generalized weakness and some mental status changes. It became much worse tonight and she spiked a fever at home. She could not hold her spoon at dinner. She has been having trouble getting up and getting around. She did complain of some mild right-sided flank and rib pain, and has a mild nonproductive cough. She denies significant chest pain, abdominal pain, headache, etc. MD Complaint: generalized weakness, lack of energy and difficulty walking Onset (ago): hour(s) Duration: constant and progressively worsening Location: generalized Migration: none Severity: moderate Quality: other Relieving factors: none Exacerbating factors: none Context: other Associated symptoms: Reports confusion, decreased appetite and fever(s); Denies chest pain, chills, diaphoresis, headache(s), nausea, short of breath, syncope or vomiting Review of Systems Const: Reports: fever(s); Denies: chills or diaphoresis ENMT: Denies: throat pain Card: Denies: chest pain or syncope Resp: Reports: non-productive cough; Denies: dyspnea GI: Denies: abdominal pain, nausea or vomiting : Reports: flank pain (mild right) Neuro: Reports: confusion; Denies: headache(s) PFS ED PFSH: Medical History Hyperlipidemia Lupus (systemic lupus erythematosus) No pertinent past medical history neghx: htn,dm,thyroid PCP: Dr. Gipson Pulmonary embolism Rheumatoid arthritis DR. Garcia Sjogrens syndrome Dr. Garcia Surgical History History of breast surgery benign tumors History of cataract surgery History of hemorrhoidectomy History of hernia repair bilateral inguinal History of hysterectomy one ovary spared. TVH; for benign reasons. Family History Brother Cancer lung cancer Diabetes Sister Diabetes Cancer pancreatic cncer Colon cancer dx age 68 Uterine cancer dx age 50's Son No problems noted. Mother , AT AGE 78 Diabetes Stroke Father , IN HIS LATE 80'S Heart disease Sister No problems noted. Denies family history of Ovarian cancer Hyperlipidemia Breast cancer Hypertension Social History Smoking and tobacco status: never smoked Second hand smoke exposure: Yes Alcohol intake: never Lives independently: Yes Marital status: Marital status details: 08/10/20 61 yrs Pets and animals: Yes (outside) History of recent travel: No Female Reproductive History: Para: 3 Spontaneous abortions: Yes (2) Physical Exam Const: GENERAL APPEARANCE: cooperative, ill appearing and frail appearing HENMT: COMMON NORMALS: normocephalic and atraumatic HEAD & SCALP: normocephalic and atraumatic FACE & SINUS: face symmetric Eye: COMMON NORMALS: Equal, round and reactive pupils present and EOMs intact bilaterally PUPIL: Yes Equal, round and reactive pupils present Chest: CHEST: Yes Symmetrical chest wall rise Resp: COMMON NORMALS: normal respiratory effort, No use of accessory muscles and clear to auscultation bilaterally AUSCULTATION: clear to auscultation bilaterally Cardio: COMMON NORMALS: regular rate and regular rhythm RATE: regular rate RHYTHM: regular rhythm GI: COMMON NORMALS: Normal to inspection, nondistended, normoactive bowel sounds present and Soft to palpation INSPECTION: Yes abdominal distension PALPATION: Yes Soft to palpation Extremity: GENERAL: Yes edema Neuro: CONRAD COMA SCALE: document GCS findings [place] coma scale eye opening: Spontaneous Conrad coma scale verbal response: Orientated (to self and place and situation) [place] coma scale motor response: Obey commands Conrad coma scale total score: 15 CRANIAL NERVES: Yes CN normal except as noted SPEECH: speech normal MOTOR EXAM: Motor fasciculations not present Psych: COMMON NORMALS: cooperative Skin: NARRATIVE SKIN EXAM: contusion left anterior leg Course Vital Signs: Vital signs: Vital Signs Temperature 98.7 F 08/26/22 21:02 Pulse Rate 89 08/26/22 22:45 Respiratory Rate 16 08/26/22 22:45 Blood Pressure 123/60 08/26/22 22:45 Pulse Oximetry 92 08/26/22 22:45 Oxygen Delivery Me thod 08/26/22 22:45 MDM - Weakness Medical Decision Making Vitals been stable here. Temperature is now normal. White blood cell count is 8.5. CRP however is 60. Hemoglobin 9.6. Her lactate is only 1. Urinalysis is negative. Swabs for COVID and flu are negative. Chest x-ray does not reveal any consolidation. Her head CT shows no acute abnormality. She feels better after a liter of fluid and some antibiotics. Family wishes to take her home. Should be covered with antibiotics given the significant fever without a cause. Family counseled. Lab Data 08/26/22 19:57 08/26/22 19:57 Radiology Impressions Chest X-Ray 08/26/22 19:44 IMPRESSION: No consolidation. Head CT 08/26/22 19:44 IMPRESSION: 1. No acute intracranial abnormality. 2. Encephalomalacia from old infarct in the right parieto-occipital lobes. 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 Laboratory Results WBC 8.5 10^3/uL (4.0-10.0) 08/26/22 19:57 RBC 3.71 10^6/uL (4.1-5.3) L 08/26/22 19:57 Hgb 9.6 g/dL (11.5-15.3) L 08/26/22 19:57 Hct 31.8 % (37.0-47.0) L 08/26/22 19:57 MCV 85.7 fl (81-99) 08/26/22 19:57 MCH 25.9 pg (28.0-34.0) L 08/26/22 19:57 MCHC 30.2 g/dL (30.0-36.0) 08/26/22 19:57 RDW 16.1 % (12.1-15.1) H 08/26/22 19:57 Plt Count 295 10^3/cmm (130-400) 08/26/22 19:57 MPV 10.0 fL (7.4-10.4) 08/26/22 19:57 Neut % (Auto) 89.7 % 08/26/22 19:57 Lymph % (Auto) 8.5 % 08/26/22 19:57 [place] % (Auto) 1.4 % 08/26/22 19:57 Eos % (Auto) 0.1 % 08/26/22 19:57 Baso % (Auto) 0.1 % 08/26/22 19:57 Neut # (Auto) 7.57 10^3/uL (1.8-7.7) 08/26/22 19:57 Lymph # (Auto) 0.7 10^3/uL (0.8-4.8) L 08/26/22 19:57 [place] # (Auto) 0.1 10^3/uL (0.2-0.9) L 08/26/22 19:57 Eos # (Auto) 0.0 10^3/uL (0.0-0.8) 08/26/22 19:57 Baso # (Auto) 0.0 10^3/uL (0.0-0.1) 08/26/22 19:57 Nucleated RBC % (auto) 0 % 08/26/22 19:57 Nucleated RBCs # 0.0 /100WBC 08/26/22 19:57 PT 15.80 SECONDS (12.1-14.9) H 08/26/22 19:57 INR 1.22 (0.8-1.2) H 08/26/22 19:57 APTT 33.3 SECONDS (23.9-36.7) 08/26/22 19:57 Sodium 133 mmol/L (136-145) L 08/26/22 19:57 Potassium 3.8 mmol/L (3.5-5.1) 08/26/22 19:57 Chloride 97 mmol/L (98-107) L 08/26/22 19:57 Carbon Dioxide 28 mmol/L (22-29) 08/26/22 19:57 Anion Gap 11.8 (5-19) 08/26/22 19:57 BUN 9 mg/dL (8-23) 08/26/22 19:57 Creatinine 0.5 mg/dL (0.5-0.9) 08/26/22 19:57 GFR Calculation Not Reportable 08/26/22 19:57 Glucose 119 mg/dL (65-115) H 08/26/22 19:57 Calculated Osmolality 276 mOsm/kg (285-295) L 08/26/22 19:57 Lactate 1.0 mmol/L (0.5-2.2) 08/26/22 19:57 Calcium 8.3 mg/dL (8.5-10.5) L 08/26/22 19:57 Total Bilirubin 0.4 mg/dL (0.15-1.2) 08/26/22 19:57 AST 26 U/L (0-32) 08/26/22 19:57 ALT 10 U/L (0-33) 08/26/22 19:57 Alkaline Phosphatase 78 U/L (35-105) 08/26/22 19:57 C-Reactive Protein 59.0 mg/L (0.0-4.9) H 08/26/22 19:57 Total Protein 8.7 g/dL (6.6-8.7) 08/26/22 19:57 Albumin 2.6 g/dL (3.5-5.2) L 08/26/22 19:57 Globulin 6.1 g/dL (1.3-4.6) H 08/26/22 19:57 Urine Color Yellow (Yellow) 08/26/22 20:41 Urine Appearance Hazy (CLEAR) A 08/26/22 20:41 Urine pH 8 (5-7) H 08/26/22 20:41 Ur Specific Platinum 1.010 (1.005-1.030) 08/26/22 20:41 Urine Protein Neg (Negative) 08/26/22 20:41 Urine Glucose (UA) Norm (Normal) 08/26/22 20:41 Urine Ketones Negative (Negative) 08/26/22 20:41 Urine Blood Neg (Negative) 08/26/22 20:41 Urine Nitrate Negative (Negative) 08/26/22 20:41 Urine Bilirubin Neg (Negative) 08/26/22 20:41 Urine Urobilinogen Neg mg/dL (Negative) 08/26/22 20:41 Ur Leukocyte Esterase Negative (Negative) 08/26/22 20:41 Influenza Type A Ag negative (Negative) 08/26/22 20:06 Influenza Type B Ag negative (Negative) 08/26/22 20:06 SARS-CoV-2 Ag (Rapid) negative (Negative) 08/26/22 20:06 Discharge Plan Discharge Patient Disposition: Home Clinical Impression: Fever, Episode of generalized weakness Condition: Stable Prescriptions: New cefdinir 300 mg capsule 300 mg PO BID 5 Days Qty: 10 0RF No Action ezetimibe 10 mg tablet 10 mg PO DAILY albuterol sulfate 90 mcg/actuation HFA aerosol inhaler 2 puff inhalation Q6H PRN (Reason: shortness of breath or wheezing) 30 Days Qty: 8.5 6RF Eliquis 2.5 mg tablet 2.5 mg PO BID Qty: 180 3RF furosemide [Lasix] 20 mg tablet 20 mg PO DAILY PRN (Reason: edema) Qty: 30 0RF pantoprazole 40 mg tablet,delayed release (DR/EC) See Rx Instructions .ROUTE .COMPLEX Qty: 90 3RF Dose Instruction: TAKE 1 TABLET BY MOUTH EVERY DAY Rx Instructions: TAKE 1 TABLET BY MOUTH EVERY DAY atorvastatin 20 mg tablet 20 mg PO BEDTIME Qty: 90 3RF ascorbic acid (vitamin C) [Vitamin C] 500 mg Tablet 500 mg PO DAILY [place] 3-6-9 1 cap PO DAILY calcium carbonate 600 mg calcium (1,500 mg) Tablet 600 mg PO DAILY risperidone 1 mg tablet 1 mg PO BEDTIME Rx Instructions: pt states she only takes 1mg po daily Vitamin D3 25 mcg (1,000 unit) Tablet 25 mcg PO DAILY Centrum Silver Women 8 mg iron-400 mcg-300 mcg Tablet 1 tab PO DAILY Discharge Orders: Discharge ED (Routine); Ordered 08/26/22 Ordered By: Karsten Muñoz Referrals: Te Gipson MD [Primary Care Provider] - 1-3 days Patient Instructions: Fever in Adults (ED), Weakness (ED) Activity Restrictions/Additional Instructions: Medications as directed. Check for temperature 3 times daily for the next 24 to 48 hours. Treat accordingly. Return for worsening weakness, worsening mental status, inability to control temperature despite 2-3 doses of antibiotics, any other concerning symptoms. Follow-up with your doctor later this week. Coding Level of Care Code ED Monogram Technician for Renaldo Coughlin Exam Comprehensive
[2022-08-26 20:10] LABS: Basophils % 0.1 %; Eosinophils % 0.1 %; Hematocrit 31.8 % (37.0-47.0); Hemoglobin 9.6 g/dL (11.5-15.3); Lymphocytes # 0.7 10^3/uL (0.8-4.8); Lymphocytes % 8.5 %; Mean Corpuscular HGB Conc 30.2 g/dL (30.0-36.0); Mean Corpuscular Hemoglobin 25.9 pg (28.0-34.0); Mean Corpuscular Volume 85.7 fl (81-99); Monocytes # 0.1 10^3/uL (0.2-0.9); Monocytes % 1.4 %; Neutrophils # 7.57 10^3/uL (1.8-7.7); Neutrophils % 89.7 %; Nucleated Red Blood Cells % 0 %; Platelet Count 295 10^3/cmm (130-400); Red Blood Count 3.71 10^6/uL (4.1-5.3); Red Cell Distribution Width 16.1 % (12.1-15.1); White Blood Count 8.5 10^3/uL (4.0-10.0)
[2022-08-26 20:23] LABS: INR 1.22 (0.8-1.2)
[2022-08-26 20:24] LABS: Partial Thromboplastin Time 33.3 SECONDS (23.9-36.7)
[2022-08-26] MEDS: sodium chloride 0.9% 1,000 ML 999 ML IV (20:24)
[2022-08-26 20:30] LABS: Alanine Aminotransferase 10 U/L (0-33); Albumin Level 2.6 g/dL (3.5-5.2); Alkaline Phosphatase 78 U/L (35-105); Anion Gap 11.8 (5-19); Aspartate Amino Transferase 26 U/L (0-32); Blood Urea Nitrogen 9 mg/dL (8-23); Calcium 8.3 mg/dL (8.5-10.5); Carbon Dioxide 28 mmol/L (22-29); Chloride 97 mmol/L (98-107); Globulin 6.1 g/dL (1.3-4.6); Glucose 119 mg/dL (65-115); Osmolality Calculated 276 mOsm/kg (285-295); Potassium 3.8 mmol/L (3.5-5.1); Sodium 133 mmol/L (136-145); Total Bilirubin 0.4 mg/dL (0.15-1.2); Total Protein 8.7 g/dL (6.6-8.7)
[2022-08-26 20:44] LABS: Influenza A by IFA negative (Negative); Influenza B by IFA negative (Negative); SARS Covid-2 Antigen negative (Negative)
[2022-08-26 20:49] LABS: Add Urine Microscopic? NO; Charge for UA Resulting for Rev
[2022-08-26] MEDS: cefTRIAXone 1,000 MG in sodium chloride 0.9% (plus) 50 ML 100 MG IV (20:54)
[2022-08-26 21:00] LABS: Urine Appearance Hazy (CLEAR); Urine Color Yellow (Yellow)
[2022-08-26 21:01] LABS: Bilirubin Urine Neg (Negative); Blood Urine Neg (Negative); Glucose Urine UA Norm (Normal); Ketones Urine Negative (Negative); Leukocyte Esterase Urine Negative (Negative); Nitrate Urine Negative (Negative); Protein Urine Neg (Negative); Urobilinogen Urine Neg (Negative); pH Urine 8 (5-7)
[2022-08-26 21:02] VITALS: BP 170/77; PULSE 94; RESP 14; TEMP 37.1; O2SAT 94
[2022-08-26 22:45] VITALS: BP 123/60; PULSE 89; RESP 16; O2SAT 92
== END 2022-08-26 23:02 | disposition home or self-care (01) ==
PROVIDERS: Emergency Provider Emergency Medicine; PCP Family Medicine
DX: R53.1 Weakness (principal); R50.9 Fever, unspecified; Z79.01 Long term (current) use of anticoagulants; Z20.822 Contact with and (suspected) exposure to COVID-19; Z77.22 Contact with and (suspected) exposure to environmental tobacco smoke (acute) (chronic); E78.5 Hyperlipidemia, unspecified; M32.9 Systemic lupus erythematosus, unspecified
CPT/HCPCS: 51798; 70450; 71045; 80053; 81003; 83605; 85025; 85610; 85730; 86140; 87040; 87426; 87804; 93005; 96365; 99285; J0696; J7030

== ENCOUNTER → 2022-08-30 13:33 | Outpatient (BNVA) | payer MEDICARE, BC, SELFPAY | PROVIDERS: PCP Family Medicine; Visit Provider Family Medicine | DX: R06.00 Dyspnea, unspecified (principal); R50.9 Fever, unspecified; R60.0 Localized edema; N39.41 Urge incontinence; M35.01 Sjogren syndrome with keratoconjunctivitis; M06.9 Rheumatoid arthritis, unspecified | CPT/HCPCS: 80053; 83880; 84443; 85025; 86140 ==

== ENCOUNTER → 2022-09-03 14:46 | Outpatient (BNVA) | payer MEDICARE, BC, SELFPAY | PROVIDERS: PCP Family Medicine; Visit Provider Family Medicine | DX: R60.0 Localized edema (principal); R19.7 Diarrhea, unspecified; N39.0 Urinary tract infection, site not specified | CPT/HCPCS: 80053; 85025; 86140 ==

== ENCOUNTER → 2022-09-04 14:48 | Outpatient (BNVA) | payer MEDICARE, BC, SELFPAY | PROVIDERS: PCP Family Medicine; Visit Provider Family Medicine | DX: N39.0 Urinary tract infection, site not specified (principal); N39.41 Urge incontinence; R19.7 Diarrhea, unspecified; R60.0 Localized edema | CPT/HCPCS: 87086; 87106; 87493; 87506 ==

== ENCOUNTER → 2022-09-11 11:52 | Outpatient (BNVA) | payer MEDICARE, BC, SELFPAY | PROVIDERS: PCP Family Medicine; Visit Provider Family Medicine | DX: R79.82 Elevated C-reactive protein (CRP) (principal); R06.00 Dyspnea, unspecified; I26.99 Other pulmonary embolism without acute cor pulmonale | CPT/HCPCS: 80053; 85025; 86140 ==

== ENCOUNTER 2022-09-17 10:27 | Outpatient (CLI) | payer MEDICARE, BC, SELFPAY ==
--- NOTE | 2022-09-17 10:30 | CT_ITS ---
WS: [id number] CT CHEST ANGIOGRAPHY WITH REFORMATS HISTORY: hx of PE, worse dyspnea TECHNIQUE: Contiguous axial images are obtained through the chest during arterial injection of intrav enous contrast. Images are reconstructed to evaluate the pulmonary arteries. MIP imaging also reviewe d. All CT scans at [facility] use at least one of these dose optimization techniques: automat ed exposure control; mA and/or kV adjustment per patient size (includes targeted exams where dose is matched to clinical indication); or iterative reconstruction. CONTRAST: Omnipaque 350; 95 mL IV. DLP: 238.81 mGy.cm COMPARISON: 06/22/2020 Good opacification of the pulmonary arteries. No pulmonary emboli or filling defects are identified. Pulmonary artery is normal size. Mild diffuse atherosclerosis aorta. No aneurysm or dissection. LEFT heart is moderately enlarged. There is no RIGHT heart strain. No pericardial or pleural effusion s. There is mild diffuse interstitial thickening throughout both lungs with mild progression since the p rior examination. There is mild reticular thickening in the periphery with a few scattered areas of t ree-in-bud airspace disease. Suspect superimposed new pneumonitis on the chronic interstitial disease . No dense consolidation or mass. Very small axillary lymph nodes. Mildly prominent hilar lymph nodes. The largest at the RIGHT hilum m easures 19 mm. Small hiatal hernia. Visualized adrenal glands are negative. Mild increase in thoracic kyphosis. CT/CT angio chest PE protcl [id number] IMPRESSION: 1. No pulmonary embolism. 2. Chronic interstitial lung disease with superimposed acute mild pneumonitis. 3. No RIGHT heart strain. 4. Mildly enlarged lymph nodes with the largest at the RIGHT hilum measuring 1 9 mm. May be reactive. Notified Vannessa at Dr. Gipson's office at 09/17/2022 11:33 AM.
[2022-09-17] MEDS: iohexol 350 mg/mL 500 mL Btl (per mL) IV (10:45)
== END 2022-09-17 10:28 | disposition home or self-care (01) ==
LOC: RAD 10:30
PROVIDERS: PCP Family Medicine; Visit Provider Family Medicine
DX: I26.99 Other pulmonary embolism without acute cor pulmonale (principal); R06.00 Dyspnea, unspecified; J84.9 Interstitial pulmonary disease, unspecified; R59.9 Enlarged lymph nodes, unspecified
CPT/HCPCS: 71275; Q9967

== ENCOUNTER → 2022-09-24 10:28 | Outpatient (BNVA) | payer MEDICARE, BC, SELFPAY | PROVIDERS: PCP Family Medicine; Visit Provider Family Medicine | DX: E88.09 Other disorders of plasma-protein metabolism, not elsewhere classified (principal); I26.99 Other pulmonary embolism without acute cor pulmonale; E78.5 Hyperlipidemia, unspecified; R79.82 Elevated C-reactive protein (CRP) | CPT/HCPCS: 80053; 83883; 84155; 84165; 85025; 86140 ==

== ENCOUNTER 2022-10-03 13:59 | Outpatient (CLI) | payer MEDICARE, BC, SELFPAY | END 2022-10-03 14:00 | disposition home or self-care (01) | PROVIDERS: PCP Family Medicine; Visit Provider Internal Medicine Pulmonary Disease | DX: R06.00 Dyspnea, unspecified (principal); I26.99 Other pulmonary embolism without acute cor pulmonale | CPT/HCPCS: 94010; 94618; 94726; 94729 ==

== ENCOUNTER 2022-10-10 12:13 | Oncology outpatient (recurring) (ONCR) | payer MEDICARE, BC, SELFPAY ==
[2022-10-10 13:06] LABS: Basophils % 0.2 %; Eosinophils % 0.5 %; Hematocrit 34.3 % (37.0-47.0); Hemoglobin 10.5 g/dL (11.5-15.3); Lymphocytes # 1.2 10^3/uL (0.8-4.8); Lymphocytes % 13.3 %; Mean Corpuscular HGB Conc 30.6 g/dL (30.0-36.0); Mean Corpuscular Volume 84.9 fl (81-99); Mean Platelet Volume 10.5 fL (7.4-10.4); Monocytes # 0.2 10^3/uL (0.2-0.9); Monocytes % 1.8 %; Neutrophils # 7.33 10^3/uL (1.8-7.7); Nucleated Red Blood Cells % 0 %; Platelet Count 287 10^3/cmm (130-400); Red Blood Count 4.04 10^6/uL (4.1-5.3); Red Cell Distribution Width 17.9 % (12.1-15.1); White Blood Count 8.7 10^3/uL (4.0-10.0)
[2022-10-10 13:09] LABS: Erythrocyte Sedimentation Rate 73 mm/hr (0-15)
[2022-10-10 13:28] LABS: Alanine Aminotransferase 8 U/L (0-33); Albumin Level 2.8 g/dL (3.5-5.2); Alkaline Phosphatase 77 U/L (35-105); Aspartate Amino Transferase 28 U/L (0-32); Blood Urea Nitrogen 11 mg/dL (8-23); Calcium 8.4 mg/dL (8.5-10.5); Carbon Dioxide 28 mmol/L (22-29); Chloride 98 mmol/L (98-107); Globulin 6.2 g/dL (1.3-4.6); Glucose 112 mg/dL (65-115); Immunoglobulin IGA 681 mg/dL (70-400); Immunoglobulin IGG 4086 mg/dL (700-1600); Immunoglobulin IGM 59 mg/dL (40-230); Osmolality Calculated 280 mOsm/kg (285-295); Sodium 135 mmol/L (136-145); Total Bilirubin 0.4 mg/dL (0.15-1.2)
[2022-10-11 09:10] LABS: PROTEIN, TOTAL 8.4 g/dL (6.1-8.1)
[2022-10-11 11:24] LABS: KAPPA LIGHT CHAIN, FREE, SERUM 179.7 mg/L (3.3-19.4); KAPPA/LAMBDA LIGHT CHAINS FREE 1.25 (0.26-1.65); LAMBDA LIGHT CHAIN, FREE, SERU 143.2 mg/L (5.7-26.3)
[2022-10-11 12:07] LABS: C Reactive Protein 65.8 mg/L (0.0-4.9)
[2022-10-11 15:05] LABS: ALBUMIN 2.6 g/dL (3.8-4.8); ALPHA 1 GLOBULIN 0.5 g/dL (0.2-0.3); ALPHA 2 GLOBULIN 0.9 g/dL (0.5-0.9); BETA 1 GLOBULIN 0.5 g/dL (0.4-0.6); BETA 2 GLOBULIN 0.5 g/dL (0.2-0.5); GAMMA GLOBULIN 3.4 g/dL (0.8-1.7)
== END 2022-10-26 23:59 | disposition home or self-care (01) ==
PROVIDERS: Nurse Practitioner; PCP Family Medicine; Visit Provider Internal Medicine Medical Oncology
DX: E88.09 Other disorders of plasma-protein metabolism, not elsewhere classified (principal); R79.82 Elevated C-reactive protein (CRP); M89.9 Disorder of bone, unspecified; R07.81 Pleurodynia; R11.0 Nausea; N39.0 Urinary tract infection, site not specified; Z79.1 Long term (current) use of non-steroidal anti-inflammatories (NSAID); Z79.899 Other long term (current) drug therapy
CPT/HCPCS: 80053; 82784; 83883; 84155; 84165; 85025; 85651; 86140; 86334; 99215

== ENCOUNTER 2022-10-22 08:41 | Outpatient (CLI) | payer MEDICARE, BC, SELFPAY ==
--- NOTE | 2022-10-22 08:47 | NM_ITS ---
WS: [id number] NUCLEAR MEDICINE BONE SCAN Radiopharmaceutical: 27.4 Tc-99m MDP mCi IV Injection site: antecubital Postinjection imaging delay: 1 hr CLINICAL INFORMATION: evaluate for multiple myeloma COMPARISON: None. FINDINGS: Bone lesions: Several areas of radiotracer uptake in the frontal calvarium bilaterally. Prior head CT demonstrates benign hyperostosis frontalis. Radiotracer activity appears to correspond to the fronta l calvarium in a symmetric fashion likely due to hyperostosis frontalis. No other suspicious areas of uptake. Soft tissue contours: Normal. Kidneys: Normal. Other findings: None. NM/NM bone scan whole body* [id number] IMPRESSION: 1. Several areas of radiotracer uptake in the frontal calvarium likely due to hyperostosis frontalis as seen on the prior head CT August 26, 2022 rather negro n multiple myeloma. 2. No other suspicious areas of radiotracer activity 3. No other suspicious lesions.
== END 2022-10-22 08:42 | disposition home or self-care (01) ==
PROVIDERS: PCP Family Medicine; Visit Provider Family Medicine
DX: E88.09 Other disorders of plasma-protein metabolism, not elsewhere classified (principal); R07.81 Pleurodynia; R79.82 Elevated C-reactive protein (CRP)
CPT/HCPCS: 78306; 80053; 85025; 86140; A9561

== ENCOUNTER → 2022-11-06 13:09 | Outpatient (BNVA) | payer MEDICARE, BC, SELFPAY | PROVIDERS: PCP Family Medicine; Visit Provider Family Medicine | DX: N39.41 Urge incontinence (principal); N39.46 Mixed incontinence; N81.9 Female genital prolapse, unspecified; N39.0 Urinary tract infection, site not specified | CPT/HCPCS: 81000; 87086 ==

== ENCOUNTER 2022-11-20 10:39 | Oncology outpatient (recurring) (ONCR) | payer MEDICARE, BC, SELFPAY ==
[2022-11-20 11:18] LABS: Basophils % 0.1 %; Eosinophils # 0.5 10^3/uL (0.0-0.8); Eosinophils % 5.2 %; Hematocrit 32.1 % (37.0-47.0); Hemoglobin 9.9 g/dL (11.5-15.3); Lymphocytes # 0.9 10^3/uL (0.8-4.8); Mean Corpuscular HGB Conc 30.8 g/dL (30.0-36.0); Mean Corpuscular Hemoglobin 26.4 pg (28.0-34.0); Mean Corpuscular Volume 85.6 fl (81-99); Mean Platelet Volume 10.9 fL (7.4-10.4); Monocytes # 0.2 10^3/uL (0.2-0.9); Monocytes % 2.3 %; Neutrophils # 7.24 10^3/uL (1.8-7.7); Neutrophils % 82.1 %; Nucleated Red Blood Cells % 0 %; Platelet Count 221 10^3/cmm (130-400); Red Blood Count 3.75 10^6/uL (4.1-5.3); White Blood Count 8.8 10^3/uL (4.0-10.0)
[2022-11-20 11:21] LABS: Erythrocyte Sedimentation Rate 76 mm/hr (0-15)
[2022-11-20 11:23] LABS: Reticulocyte % 0.9 % (0.5-2.0)
[2022-11-20 12:15] LABS: LAB Peripheral Smear Sent for Review
[2022-11-20 13:13] LABS: Alanine Aminotransferase 6 U/L (0-33); Albumin Level 2.8 g/dL (3.5-5.2); Alkaline Phosphatase 66 U/L (35-105); Anion Gap 14.2 (5-19); Aspartate Amino Transferase 17 U/L (0-32); Blood Urea Nitrogen 15 mg/dL (8-23); C Reactive Protein 72.6 mg/L (0.0-4.9); Calcium 8.3 mg/dL (8.5-10.5); Carbon Dioxide 27 mmol/L (22-29); Chloride 96 mmol/L (98-107); Ferritin 411 ng/mL (15-150); Globulin 6.3 g/dL (1.3-4.6); Glucose 80 mg/dL (65-115); Iron 25 ug/dL (37-145); Lactate Dehydrogenase 215 U/L (135-214); Osmolality Calculated 276 mOsm/kg (285-295); Percent Saturation 15.6 % (20-50); Potassium 4.2 mmol/L (3.5-5.1); Sodium 133 mmol/L (136-145); Total Bilirubin 0.2 mg/dL (0.15-1.2); Total Iron Binding Capacity 160 mcg/dl; Total Protein 9.1 g/dL (6.6-8.7); Unsaturated Iron Binding 135 ug/dL (112-347)
[2022-11-20 13:28] LABS: Vitamin B12 799 pg/mL (232-1245)
[2022-11-21 15:11] LABS: KAPPA LIGHT CHAIN, FREE, SERUM 214.8 mg/L (3.3-19.4); KAPPA/LAMBDA LIGHT CHAINS FREE 1.33 (0.26-1.65); LAMBDA LIGHT CHAIN, FREE, SERU 161.7 mg/L (5.7-26.3)
[2022-11-21 16:29] LABS: PROTEIN, TOTAL 8.9 g/dL (6.1-8.1)
[2022-11-22 15:06] LABS: ALBUMIN 2.6 g/dL (3.8-4.8); ALPHA 1 GLOBULIN 0.5 g/dL (0.2-0.3); ALPHA 2 GLOBULIN 0.9 g/dL (0.5-0.9); BETA 1 GLOBULIN 0.5 g/dL (0.4-0.6); BETA 2 GLOBULIN 0.6 g/dL (0.2-0.5); GAMMA GLOBULIN 3.8 g/dL (0.8-1.7)
== END 2022-11-25 23:59 | disposition home or self-care (01) ==
PROVIDERS: PCP Family Medicine; Visit Provider Internal Medicine Medical Oncology
DX: E88.09 Other disorders of plasma-protein metabolism, not elsewhere classified (principal)
CPT/HCPCS: 36415; 80053; 82607; 82728; 83010; 83540; 83550; 83615; 83883; 84155; 84165; 85025; 85045; 85651; 86140; 86334

== ENCOUNTER 2022-11-20 18:35 | Inpatient (IN) | payer MEDICARE, BC, SELFPAY ==
[2022-11-20] VITALS (13 sets, daily range): BP systolic 97–168; BP diastolic 44–92; PULSE 89–107; RESP 16–20; TEMP 36.9–39.1; O2SAT 90–96
--- NOTE | 2022-11-20 19:14 | XRR_ITS ---
PROCEDURE INFORMATION: Exam: XR Chest Exam date and time: 11/20/2022 7:30 PM Age: 82 years old Clinical indication: Fever TECHNIQUE: Imaging protocol: Radiologic exam of the chest. Views: 1 view. COMPARISON: CR XR chest 1V portable [id number] 08/26/2022 8:20 PM FINDINGS: Lungs: See Heart/Mediastinum finding. Pleural spaces: Unremarkable. No pleural effusion. No pneumothorax. Heart/Mediastinum: Cardiomegaly and mild pulmonary vascular congestion. Bones/joints: Unremarkable. XR/XR chest 1V portable [id number] IMPRESSION: Cardiomegaly and mild pulmonary vascular congestion.
--- NOTE | 2022-11-20 19:14 | ECG_ITS ---
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 Measurements Intervals [place] Rate: 89 P: 41 [place]: 143 QRS: -5 QRSD: 94 T: 50 QT: 387 QTc: 473 Interpretive Statements SINUS RHYTHM Compared to ECG 08/26/2022 20:12:36 No significant changes Electronically Signed On 11-21-2022 11:01:12 CDT by Parker Estrada M.D. [id number]
--- NOTE | 2022-11-20 19:24 | W.ED.AMS ---
HPI - Altered Mental Status General: Chief Complaint: Altered Mental Status Stated Complaint: ams Time Seen by Provider: 11/20/22 18:47 Source: patient and family Mode of arrival: ambulatory Limitations: altered mental status History of Present Illness: 82-year-old female per family states she has been complaining of some joint pain along with redness to her joints over the last 2 days she is also had a fever today and is febrile here 1-2.3 he states that when her temp goes up she also has some altered mental status from her baseline. Patient does have dementia as she is able to answer some my questions here but is demented at baseline. No vomiting no pain other than joint pain. Denied any headaches Review of Systems General: Reports: ROS unobtainable due to mental status PFSH ED PFSH: Medical History Hyperlipidemia Lupus (systemic lupus erythematosus) No pertinent past medical history neghx: htn,dm,thyroid PCP: Dr. Gipson Pulmonary embolism Rheumatoid arthritis DR. Garcia Sjogrens syndrome Dr. Garcia Surgical History History of breast surgery benign tumors History of cataract surgery History of hemorrhoidectomy History of hernia repair bilateral inguinal History of hysterectomy one ovary spared. TVH; for benign reasons. Family History Brother Cancer lung cancer Diabetes Sister Diabetes Cancer pancreatic cncer Colon cancer dx age 68 Uterine cancer dx age 50's Son No problems noted. Mother , AT AGE 78 Diabetes Stroke Father , IN HIS LATE 80'S Heart disease Sister No problems noted. Denies family history of Ovarian cancer Hyperlipidemia Breast cancer Hypertension Social History Smoking and tobacco status: never smoked Second hand smoke exposure: Yes Alcohol intake: never Substance/Drug Use: never Lives independently: Yes Marital status: Marital status details: 08/10/20 61 yrs Pets and animals: Yes (outside) Do you think of yourself as: Straight/Heterosexual Female Reproductive History: Para: 3 Spontaneous abortions: Yes (2) Physical Exam Const: COMMON NORMALS: negative for patient oriented x3 GENERAL APPEARANCE: ill appearing HENMT: COMMON NORMALS: normocephalic and atraumatic HEAD & SCALP: normocephalic and atraumatic Eye: COMMON NORMALS: conjunctivae normal CONJUNCTIVA: Yes conjunctivae normal Neck/C-Spine: COMMON NORMALS: supple and no meningeal signs Chest: COMMONS NORMALS: normal inspection of the chest Resp: COMMON NORMALS: normal respiratory effort and clear to auscultation bilaterally EFFORT & INSPECTION: Yes able to speak in complete sentences AUSCULTATION: clear to auscultation bilaterally Cardio: COMMON NORMALS: regular rate and regular rhythm RATE: regular rate RHYTHM: regular rhythm GI: COMMON NORMALS: Normal to inspection, nondistended, normoactive bowel sounds present, Soft to palpation and non-tender INSPECTION: Yes normal to inspection PALPATION: Yes Soft to palpation Extremity: COMMON NORMALS: normal to inspection Neuro: COMMON NORMALS: negative for patient oriented x3 MENINGEAL SIGNS: Yes no meningeal signs Psych: COMMON NORMALS: negative for mental status grossly normal OTHER: joints warm to touch Skin: COMMON NORMALS: no rashes or lesions noted GENERAL SKIN EXAM: no rashes or lesions noted Course Vital Signs: Vital signs: Vital Signs Temperature 102.3 F H 11/20/22 18:46 Pulse Rate 107 H 11/20/22 18:46 Respiratory Rate 20 H 11/20/22 18:46 Blood Pressure 112/48 11/20/22 21:15 Pulse Oximetry 94 11/20/22 21:15 Oxygen Delivery Me thod Room Air 11/20/22 18:46 MDM - Altered Mental Status Medical Decision Making Patient presents here with fever along with some confusion her fevers improved. Now she is at her baseline head CT and blood work here are all normal she does have joint pain to multiple joints her wrists and knees are both red and painful to touch concerning for possible rheumatological cause for this did get blood cultures start IV antibiotics spoke to the hospitalist and will admit at this time. Lab Data 11/20/22 19:43 11/20/22 19:43 Radiology Impressions Chest X-Ray 11/20/22 19:14 IMPRESSION: Cardiomegaly and mild pulmonary vascular congestion. Head CT 11/20/22 19:48 IMPRESSION: 1. Negative for intracranial hemorrhage or mass effect. 2. Mild diffuse white matter disease likely reflecting chronic microvascular ischemic changes. 3. Right parietooccipital lobe chronic infarct again seen. 4. Chronic bilateral thalamic and basal ganglia lacunar infarcts again seen. Laboratory Results WBC 8.7 10^3/uL (4.0-10.0) 11/20/22 19:43 RBC 3.84 10^6/uL (4.1-5.3) L 11/20/22 19:43 Hgb 10.0 g/dL (11.5-15.3) L 11/20/22 19:43 Hct 32.5 % (37.0-47.0) L 11/20/22 19:43 MCV 84.6 fl (81-99) 11/20/22 19:43 MCH 26.0 pg (28.0-34.0) L 11/20/22 19:43 MCHC 30.8 g/dL (30.0-36.0) 11/20/22 19:43 RDW 17.8 % (12.1-15.1) H 11/20/22 19:43 Plt Count 222 10^3/cmm (130-400) 11/20/22 19:43 MPV 11.2 fL (7.4-10.4) H 11/20/22 19:43 Neut % (Auto) 80.4 % 11/20/22 19:43 Lymph % (Auto) 11.7 % 11/20/22 19:43 [place] % (Auto) 2.2 % 11/20/22 19:43 Eos % (Auto) 5.3 % 11/20/22 19:43 Baso % (Auto) 0.1 % 11/20/22 19:43 Neut # (Auto) 6.96 10^3/uL (1.8-7.7) 11/20/22 19:43 Lymph # (Auto) 1.0 10^3/uL (0.8-4.8) 11/20/22 19:43 [place] # (Auto) 0.2 10^3/uL (0.2-0.9) 11/20/22 19:43 Eos # (Auto) 0.5 10^3/uL (0.0-0.8) 11/20/22 19:43 Baso # (Auto) 0.0 10^3/uL (0.0-0.1) 11/20/22 19:43 Nucleated RBC % (auto) 0 % 11/20/22 19:43 Nucleated RBCs # 0.0 /100WBC 11/20/22 19:43 PT 14.40 SECONDS (12.1-14.9) 11/20/22 19:43 INR 1.09 (0.8-1.2) 11/20/22 19:43 Sodium 134 mmol/L (136-145) L 11/20/22 19:43 Potassium 4.5 mmol/L (3.5-5.1) 11/20/22 19:43 Chloride 95 mmol/L (98-107) L 11/20/22 19:43 Carbon Dioxide 31 mmol/L (22-29) H 11/20/22 19:43 Anion Gap 12.5 (5-19) 11/20/22 19:43 BUN 15 mg/dL (8-23) 11/20/22 19:43 Creatinine 0.6 mg/dL (0.5-0.9) 11/20/22 19:43 GFR Calculation Not Reportable 11/20/22 19:43 Glucose 99 mg/dL (65-115) 11/20/22 19:43 Calculated Osmolality 279 mOsm/kg (285-295) L 11/20/22 19:43 Lactic Acid 1.7 mmol/L (0.5-2.2) 11/20/22 19:43 Calcium 8.4 mg/dL (8.5-10.5) L 11/20/22 19:43 Total Bilirubin 0.2 mg/dL (0.15-1.2) 11/20/22 19:43 AST 17 U/L (0-32) 11/20/22 19:43 ALT 7 U/L (0-33) 11/20/22 19:43 Alkaline Phosphatase 67 U/L (35-105) 11/20/22 19:43 Total Protein 9.0 g/dL (6.6-8.7) H 11/20/22 19:43 Albumin 2.8 g/dL (3.5-5.2) L 11/20/22 19:43 Globulin 6.2 g/dL (1.3-4.6) H 11/20/22 19:43 Urine Color Yellow (Yellow) 11/20/22 20:23 Urine Appearance Clear (CLEAR) 11/20/22 20:23 Urine pH 6.5 (5-7) 11/20/22 20:23 Ur Specific [place] 1.010 (1.005-1.030) 11/20/22 20:23 Urine Protein 1+ (Negative) H 11/20/22 20:23 Urine Glucose (UA) Norm (Normal) 11/20/22 20: Urine Ketones Negative (Negative) 11/20/22 20:23 Urine Blood Trace (Negative) H 11/20/22 20:23 Urine Nitrate Negative (Negative) 11/20/22 20: Urine Bilirubin Neg (Negative) 11/20/22 20: Urine Urobilinogen Neg mg/dL (Negative) 11/20/22 20: Ur Leukocyte Esterase Negative (Negative) 11/20/22 20: Urine RBC 0-4 /hpf (0-2) H 11/20/22 20:23 Urine WBC None /hpf (0-5) 11/20/22 20:23 Ur Squamous Epith Cells None /hpf (0-5) 11/20/22 20: Amorphous Sediment Not Reportable 11/20/22 20: Urine Bacteria Trace /hpf (NONE) 11/20/22 20: Urine Mucus 1+ /hpf 11/20/22 20:23 Discharge Plan Discharge Patient Disposition: Admitted As Inpatient Clinical Impression: Altered mental status, Fever, Joint pain Condition: Stable Prescriptions: No Action ezetimibe 10 mg tablet 10 mg PO DAILY albuterol sulfate 90 mcg/actuation HFA aerosol inhaler 2 puff inhalation Q6H PRN (Reason: shortness of breath or wheezing) 30 Days Qty: 8.5 6RF fluconazole [Diflucan] 150 mg tablet 150 mg PO Q2D 3 Days Qty: 3 0RF Eliquis 2.5 mg tablet 2.5 mg PO BID Qty: 180 3RF ondansetron HCl 4 mg tablet 4 mg PO Q8H Qty: 60 4RF Rx Instructions: take 1 or 2 tablets every 6 hours prn nausea benzonatate 100 mg capsule 100 mg PO TID PRN (Reason: cough) Qty: 45 0RF levofloxacin 500 mg tablet 500 mg PO DAILY Qty: 7 0RF furosemide [Lasix] 20 mg tablet 20 mg PO DAILY PRN (Reason: edema) Qty: 30 0RF pantoprazole 40 mg tablet,delayed release (DR/EC) See Rx Instructions .ROUTE .COMPLEX Qty: 90 3RF Dose Instruction: TAKE 1 TABLET BY MOUTH EVERY DAY Rx Instructions: TAKE 1 TABLET BY MOUTH EVERY DAY atorvastatin 20 mg tablet 20 mg PO BEDTIME Qty: 90 3RF mirtazapine 30 mg tablet 30 mg PO .HS Qty: 30 0RF ascorbic acid (vitamin C) [Vitamin C] 500 mg Tablet 500 mg PO DAILY [place] 3-6-9 1 cap PO DAILY calcium carbonate 600 mg calcium (1,500 mg) Tablet 600 mg PO DAILY risperidone 1 mg tablet 1 mg PO BEDTIME Rx Instructions: pt states she only takes 1mg po daily Vitamin D3 25 mcg (1,000 unit) Tablet 25 mcg PO DAILY Centrum Silver Women 8 mg iron-400 mcg-300 mcg Tablet 1 tab PO DAILY Referrals: Te Gipson MD [Primary Care Provider] - Patient Instructions: Hyponatremia (ED), Benzodiazepine Use Disorder (ED), Dementia (ED), Non-diabetic Hypoglycemia (ED), Hypoglycemia in a Person with Diabetes (ED), Concussion (ED), Alcohol Intoxication (ED), Subarachnoid Hemorrhage (GEN), Altered Mental Status (ED) Coding Level of Care Code ED [employer]al[employer] Coughlin
--- NOTE | 2022-11-20 19:48 | CTR_ITS ---
PROCEDURE INFORMATION: Exam: CT Head Without Contrast Exam date and time: 11/20/2022 8:36 PM Age: 82 years old Clinical indication: Altered mental status/memory loss; Additional info: AMS TECHNIQUE: Imaging protocol: Computed tomography of the head without contrast. Radiation optimization: All CT scans at this facility use at least one of these dose optimization techniques: automated exposure control; mA and/or kV adjustment per patient size (includes targeted exams where dose is matched to clinical indication); or iterative reconstruction. REPORTING DATA: Count of CT and Cardiac NM exams in prior 12 months: This patient has received 2 known CTs and 0 known cardiac nuclear medicine studies in the 12 months prior to the current study. COMPARISON: CT head wo con* [id number] 08/26/2022 8:28 PM RADIATION DOSE METRICS: Total DLP (mGy-cm): 1003.6 FINDINGS: Brain: Mild diffuse white matter disease likely reflecting chronic microvascular ischemic changes. Right parietooccipital lobe chronic infarct again seen. Chronic bilateral thalamic and basal ganglia lacunar infarcts again seen. Cerebral ventricles: No ventriculomegaly. Paranasal sinuses: Visualized sinuses are unremarkable. No fluid levels. Mastoid air cells: Visualized mastoid air cells are well aerated. Bones/joints: Unremarkable. No acute fracture. Soft tissues: Unremarkable. CT/CT head wo con* [id number] IMPRESSION: 1. Negative for intracranial hemorrhage or mass effect. 2. Mild diffuse white matter disease likely reflecting chronic microvascular ischemic changes. 3. Right parietooccipital lobe chronic infarct again seen. 4. Chronic bilateral thalamic and basal ganglia lacunar infarcts again seen.
[2022-11-20] MEDS: sodium chloride 0.9% 1,660.14 ML 1660.14 ML IV (19:50)
[2022-11-20] MEDS: piperacillin-tazobactam 3.375 GM in sodium chloride 0.9% (plus) 50 ML IV (19:55)
[2022-11-20 20:09] LABS: Basophils % 0.1 %; Eosinophils # 0.5 10^3/uL (0.0-0.8); Eosinophils % 5.3 %; Hematocrit 32.5 % (37.0-47.0); Lymphocytes % 11.7 %; Mean Corpuscular HGB Conc 30.8 g/dL (30.0-36.0); Mean Corpuscular Volume 84.6 fl (81-99); Mean Platelet Volume 11.2 fL (7.4-10.4); Monocytes # 0.2 10^3/uL (0.2-0.9); Monocytes % 2.2 %; Neutrophils # 6.96 10^3/uL (1.8-7.7); Neutrophils % 80.4 %; Nucleated Red Blood Cells % 0 %; Platelet Count 222 10^3/cmm (130-400); Red Blood Count 3.84 10^6/uL (4.1-5.3); Red Cell Distribution Width 17.8 % (12.1-15.1); White Blood Count 8.7 10^3/uL (4.0-10.0)
[2022-11-20] MEDS: acetaminophen 1,000 MG/100 ML PIGGYBACK 400 MG IV (20:13)
[2022-11-20 20:23] LABS: INR 1.09 (0.8-1.2)
[2022-11-20] MEDS: vancomycin 1,000 MG in sodium chloride 0.9% 250 ML 250 MG IV (20:25)
[2022-11-20 20:31] LABS: Lactic Sepsis W/Reflex 1.7 mmol/L (0.5-2.2)
[2022-11-20 20:32] LABS: Alanine Aminotransferase 7 U/L (0-33); Albumin Level 2.8 g/dL (3.5-5.2); Alkaline Phosphatase 67 U/L (35-105); Anion Gap 12.5 (5-19); Aspartate Amino Transferase 17 U/L (0-32); Blood Urea Nitrogen 15 mg/dL (8-23); Calcium 8.4 mg/dL (8.5-10.5); Carbon Dioxide 31 mmol/L (22-29); Chloride 95 mmol/L (98-107); Globulin 6.2 g/dL (1.3-4.6); Glucose 99 mg/dL (65-115); Osmolality Calculated 279 mOsm/kg (285-295); Potassium 4.5 mmol/L (3.5-5.1); Sodium 134 mmol/L (136-145); Total Bilirubin 0.2 mg/dL (0.15-1.2)
[2022-11-20 21:09] LABS: Add Urine Culture? No; Add Urine Microscopic? YES; Bacteria Urine TRACE /hpf; Bilirubin Urine Neg (Negative); Blood Urine Trace (Negative); Glucose Urine UA Norm (Normal); Ketones Urine Negative (Negative); Leukocyte Esterase Urine Negative (Negative); Mucus Urine 1+ /hpf; Nitrate Urine Negative (Negative); Protein Urine 1+ (Negative); RBC Urine 0-4 /hpf (0-2); Urine Appearance Clear (CLEAR); Urine Color Yellow (Yellow); Urobilinogen Urine Neg (Negative); pH Urine 6.5 (5-7)
--- NOTE | 2022-11-20 21:59 | PC.NURSE ---
Attempted patient report to [facility] at 2200. Nurse was unavailiable at this time.
--- NOTE | 2022-11-20 22:41 | PC.NURSE ---
Family at bedside states that they recently gave the patient her home medication Mirtazapine. They state that the doctor down there okayed it.
--- NOTE | 2022-11-20 22:47 | P.HP_ITS ---
Providers/Chief Complaint Admitting Physician: Faith Hodges MD Primary Care Provider: Te Gipson MD Chief Complaint: ams History of Present Illness Carmen Macias is a 82 year old female with past medical history of PE, rheumatoid arthritis, Sjogren's syndrome, dementia, lupus, hyperlipidemia presented to the hospital today for complaint of joint pain and fever. He stat es he started about 2 days ago and she has been having bilateral knee pain and bilateral wrist pain. He states she has had several tick bites in the past however does not recall him having a tick bite recently. She states she checked her body for ticks and could not find 1. She states she also had a rash on her upper body and forearms that has now resolved on its own. She does not recall having a fever at home however states that she was told in the ER that her temp was 102. She states that she has been treated for tick bite related disease before however cannot pinpoint specific as to how long ago that was. She says what ever testing of further work-up we need to do we need to discuss this with her before proceeding. Patient is alert oriented x3 at this time. She also states she is DNR/DNI. At the time of my encounter with the patient I did not believe she was confused at all however earlier in the ER she was thought to have some altered mental status. Denies smoking, alcohol use. [place] Daughter currently not present in room however she told nursing staff that patient did have a bite of some sort of a bug or insect on her right wrist where there is a yellowish pustule with some purple ecchymosis surrounding it. This suspected may have been a tick however unsure. ED course: 148, 20, 107, 1-2.3, saturating 94% on room air. Chest x-ray shows cardiomegaly mild pulmonary vascular congestion. Head CT negative for intracranial hemorrhage or mass effect, mild diffuse white matter disease likely reflecting chronic microvascular ischemic changes. Right parieto-occipital lobe chronic infarct again seen, chronic bilateral thalamic an d basal ganglia core infarct again seen. Medications/Allergies Home Medications Medication Instructions Recorded Confirmed Last Taken Type [place] 3-6-9 1 cap PO DAILY 01/15/20 11/21/22 1 Day Ago History ~11/20/22 ascorbic acid (vitamin C) 500 mg 500 mg PO DAILY 01/15/20 11/21/22 1 Day Ago History tablet (Vitamin C) ~11/20/22 calcium carbonate 600 mg calcium 600 mg PO DAILY 06/22/20 11/21/22 1 Day Ago History (1,500 mg) tablet ~11/20/22 cholecalciferol (vitamin D3) 25 25 mcg PO DAILY 06/22/20 11/21/22 1 Day Ago History mcg (1,000 unit) tablet (Vitamin ~11/20/22 D3) multivit with 1 tab PO DAILY 06/22/20 11/21/22 1 Day Ago History cegmasku-qtai-DQ-lutein 8 mg ~11/20/22 iron-400 mcg-300 mcg tablet (Centrum Silver Women) albuterol sulfate 90 mcg/actuation 2 puff inhalation Q6H PRN 10/31/21 11/21/22 Unknown Rx aerosol inhaler shortness of breath or wheezing 30 days #8.5 grams ezetimibe 10 mg tablet 10 mg PO DAILY 10/31/21 11/21/22 1 Day Ago History ~11/20/22 furosemide 20 mg tablet (Lasix) 20 mg PO DAILY PRN edema #30 tabs 06/08/22 11/21/22 Unknown Rx apixaban 2.5 mg tablet (Eliquis) 2.5 mg PO BID #180 tabs 06/25/22 11/21/22 1 Day Ago Rx ~11/20/22 atorvastatin 20 mg tablet 20 mg PO BEDTIME #90 tabs 07/25/22 11/20/22 Unknown Rx benzonatate 100 mg capsule 100 mg PO TID PRN cough #45 caps 10/17/22 11/21/22 Unknown Rx divalproex 125 mg tablet,delayed 125 mg PO BEDTIME 11/20/22 11/21/22 11/20/22 History release mirtazapine 15 mg tablet 30 mg PO BEDTIME 11/20/22 11/20/22 11/20/22 History polyethylene glycol 3350 17 gram 17 g PO DAILY 11/20/22 11/20/22 11/20/22 History oral powder packet (Miralax) ondansetron HCl 4 mg tablet 4 mg PO DAILY 11/21/22 11/21/22 1 Day Ago History ~11/20/22 pantoprazole 40 mg tablet,delayed 40 mg PO DAILY 11/21/22 11/21/22 1 Day Ago History release ~11/20/22 Allergies Allergy/AdvReac Type Severity Reaction Status Date / Time Sulfa (Sulfonamide Allergy Unknown unknown Verified 10/17/22 10:52 Antibiotics) sulfamethoxazole Allergy Unknown Verified 10/17/22 10:52 [From Bactrim] tetanus and diphtheria Allergy Unknown Verified 10/17/22 10:52 toxoids trimethoprim [From Bactrim] Allergy Unknown Verified 10/17/22 10:52 PFSH Acute PFSH: Medical History Hyperlipidemia Lupus (systemic lupus erythematosus) No pertinent past medical history neghx: htn,dm,thyroid PCP: Dr. Gipson Pulmonary embolism Rheumatoid arthritis DR. Garcia Sjogrens syndrome Dr. Garcia Surgical History History of breast surgery benign tumors History of cataract surgery History of hemorrhoidectomy History of hernia repair bilateral inguinal History of hysterectomy one ovary spared. TVH; for benign reasons. Family History Brother Cancer lung cancer Diabetes Sister Diabetes Cancer pancreatic cncer Colon cancer dx age 68 Uterine cancer dx age 50's Son No problems noted. Mother , AT AGE 78 Diabetes Stroke Father , IN HIS LATE 80'S Heart disease Sister No problems noted. Denies family history of Ovarian cancer Hyperlipidemia Breast cancer Hypertension Social History Smoking and tobacco status: never smoked Second hand smoke exposure: Yes Alcohol intake: never Substance/Drug Use: never Lives independently: Yes Marital status: Marital status details: 08/10/20 61 yrs Pets and animals: Yes (outside) Do you think of yourself as: Straight/Heterosexual Female Reproductive History: Para: 3 Spontaneous abortions: Yes (2) Vitals/I&O/Wt Last Vital Signs Temp 102.3 F H 11/20/22 18:46 Pulse 107 H 11/20/22 18:46 Resp 20 H 11/20/22 18:46 BP 111/50 11/20/22 22:15 Pulse Ox 96 11/20/22 22:15 O2 Del Method Room Air 11/20/22 18:46 11/20/22 11/20/22 11/20/22 06:59 14:59 22:59 Intake Total Balance Weight last 48 hrs Weight 55.338 kg Physical Exam Narrative: General: Alert oriented x3, patient seen laying in bed appearing comfortable at this time. Follows commands and answers questions appropriately. HEENT: Normocephalic, atraumatic, EOMI, Cardio: Regular rate rhythm, normal S1-S2, Respiratory: To auscultation bilaterally no wheezes no rhonchi at this time. GI: Abdomen soft, nontender, bowel sounds + Extremities: Mild redness present at bilateral wrist area with mild swelling, rash present on both knees however joints are nontender and not edematous at this time. Unrestricted range of motion. Data 11/20/22 19:43 11/20/22 19:43 Micro: Microbiology 11/20/22 19:53 Blood Culture - Preliminary Blood SPECIMEN COLLECTED 11/20/22 19:53 Blood Culture - Preliminary Blood SPECIMEN COLLECTED A&P Assessment and plan (1) Altered mental status: (2) Fever: (3) Joint pain: (4) Elevated C-reactive protein (CRP): (5) Hyperlipidemia: Qualifiers: Hyperlipidemia type: mixed hyperlipidemia Qualified Code(s): E78.2 - Mixed hyperlipidemia (6) Lupus (systemic lupus erythematosus): Qualifiers: Systemic lupus erythematosus type: unspecified Systemic lupus erythem atosus organ involvement: unspecified Qualified Code(s): M32.9 - Systemic lupus erythematosus, unspecified (7) CVA (cerebral vascular accident): (8) Rheumatoid arthritis: Qualifiers: Rheumatoid arthritis location: multiple sites Rheumatoid factor presence: unspecified presence Qualified Code(s): M06.9 - Rheumatoid arthritis, unspecified (9) Sjogrens syndrome: Qualifiers: Sjogren's organ involvement: keratoconjunctivitis Qualified Code(s): 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 Check blood cultures, urine culture, sputum culture Gram stain ? Check PORTILLO profile, rheumatoid factor, CCP, ESR, CRP, uric acid ? From review of records from oncology and rheumatology it seems that patient has been on hydroxychloroquine in the past however could not tolerate side e ffects and therefore it was stopped. He has also had a PE in the past along with DVT. She was on hormone replacement therapy in the past but that was stopped in 20 years ago. ? Patient states that she does not like to take Tylenol because it makes her crazy. ? Patient did receive a dose of vancomycin and Zosyn in ER. I will continue for now ? We will place on NSAID ibuprofen 400 mg every 8 hours as needed for inflammation. Have discussed with nursing staff to alternate between Tylenol and ibuprofen. ? Consider orthopedics consult for arthrocentesis in a.m. Recommend Gram stain culture, leukocyte count, crystals evaluation from synovial fluid ? Consider infectious disease consult ? Check tick panel ? Check procalcitonin ? Start patient on doxycycline 100 twice daily orally ? Recommend rheumatology follow-up at discharge -Nursing staff informing that patient's daughter has gone home to get all her home medications. They will need to be restarted once confirmed. DNR/DNI, patient alert oriented x3 and able to answer questions very appropriately at this time. I do not believe she is confused. However this may need to be confirmed with her daughter due to her history of Lewy body dementia. SCDs, heparin SQ twice daily Attestations Medical Necessity Statement*: Greater than 2 midnight stay for management of fever, joint pain Other Coding Information Focused coding review requested Diagnoses Altered mental status R41.82 Fever R50.9 Joint pain M25.50 Elevated C-reactive protein (CRP) R79.82 Hyperlipidemia E78.2 Hyperlipidemia type: mixed hyperlipidemia Lupus (systemic lupus erythematosus) M32.9 Systemic lupus erythematosus type: unspecified Systemic lupus erythematosus organ involvement: unspecified CVA (cerebral vascular accident) I63.9 Rheumatoid arthritis M06.9 Rheumatoid arthritis location: multiple sites Rheumatoid factor presence: unspecified presence Sjogrens syndrome M35.01 Sjogren's organ involvement: keratoconjunctivitis
[2022-11-20 23:14] LABS: Erythrocyte Sedimentation Rate 65 mm/hr (0-15)
[2022-11-20 23:27] LABS: C Reactive Protein 67.8 mg/L (0.0-4.9)
[2022-11-20 23:34] LABS: Procalcitonin 0.19 ng/mL (0-0.5)
--- NOTE | 2022-11-20 23:50 | PC.NURSE ---
Patient states that it is February 2022. Patient states that we are in a hospital but she does not know which one. Patient is able to tell me her name, age, and birthday. Patient states that she is in the hospital because she is sick. Bed alarm is set.
[2022-11-20 23:53] LABS: Thyroid Stimulating Hormone 5.41 uIU/mL (0.27-4.20); Uric Acid 4.8 mg/dL (2.4-5.7)
--- NOTE | 2022-11-20 23:53 | PC.NURSE ---
Patient states sometimes I have trouble peeing and they have to put a catheter in me. Family also states that patient is incontinent at times. Patient currently has brief on from home. It is clean and dry. Family states that patient has to have assistance to go to the bathroom. Dr. Hodges ordered to check for ticks. Thorough skin assessment completed. No ticks at this time. No wounds at this time.
--- NOTE | 2022-11-21 00:13 | PC.NURSE ---
Patient assisted to bedside commode with 2 assist. Brief changed. Patient voided 450 ml.
[2022-11-21] MEDS: piperacillin-tazobactam 3.375 GM in sodium chloride 0.9% (plus) 50 ML IV ×3 (01:54→17:54)
[2022-11-21 04:00] VITALS: BP 152/79; PULSE 81; RESP 16; TEMP 36.7; O2SAT 94
[2022-11-21] MEDS: acetaminophen 325 mg Tablet 650 MG PO (04:57)
[2022-11-21 05:29] LABS: Basophils % 0.2 %; Eosinophils # 0.4 10^3/uL (0.0-0.8); Eosinophils % 6.5 %; Hemoglobin 9.5 g/dL (11.5-15.3); Lymphocytes % 15.7 %; Mean Corpuscular HGB Conc 30.6 g/dL (30.0-36.0); Mean Corpuscular Hemoglobin 26.2 pg (28.0-34.0); Mean Corpuscular Volume 85.6 fl (81-99); Mean Platelet Volume 11.1 fL (7.4-10.4); Monocytes # 0.2 10^3/uL (0.2-0.9); Monocytes % 2.8 %; Neutrophils # 4.79 10^3/uL (1.8-7.7); Neutrophils % 74.3 %; Nucleated Red Blood Cells % 0 %; Platelet Count 203 10^3/cmm (130-400); Red Blood Count 3.62 10^6/uL (4.1-5.3); Red Cell Distribution Width 17.8 % (12.1-15.1); White Blood Count 6.4 10^3/uL (4.0-10.0)
[2022-11-21 05:49] LABS: Alanine Aminotransferase < 5 U/L (0-33); Albumin Level 2.4 g/dL (3.5-5.2); Alkaline Phosphatase 52 U/L (35-105); Aspartate Amino Transferase 15 U/L (0-32); Blood Urea Nitrogen 10 mg/dL (8-23); Calcium 7.8 mg/dL (8.5-10.5); Carbon Dioxide 27 mmol/L (22-29); Chloride 104 mmol/L (98-107); Globulin 5.2 g/dL (1.3-4.6); Glucose 81 mg/dL (65-115); Magnesium 1.9 mg/dL (1.7-2.3); Osmolality Calculated 284 mOsm/kg (285-295); Sodium 138 mmol/L (136-145); Total Bilirubin 0.2 mg/dL (0.15-1.2); Total Protein 7.6 g/dL (6.6-8.7)
[2022-11-21 07:48] VITALS: BP 111/63; PULSE 78; RESP 16; TEMP 36.7; O2SAT 93
[2022-11-21] MEDS: pantoprazole DR 40 mg Tablet PO (09:55)
[2022-11-21] MEDS: apixaban 5 mg Tablet 2.5 MG PO ×2 (09:55→17:54)
[2022-11-21] MEDS: ascorbic acid 500 mg Tablet PO (09:55)
[2022-11-21] MEDS: ezetimibe 10 mg Tablet PO (09:55)
--- NOTE | 2022-11-21 10:10 | XR_ITS ---
WS: [id number] Exam: XR knee RT 1-2V [id number] Date/Time of Exam: 11/21/2022 10:33 AM Reason For Exam: Evaluate for joint effusion No fracture or dislocation noted. Mild degenerative narrowing of the medial joint compartment. No verenice nt effusion. Normal soft tissues. XR/XR knee RT 1-2V [id number] IMPRESSION: 1. Mild degenerative narrowing of the medial joint compartment. 2. No fracture or joint effusion.
--- NOTE | 2022-11-21 10:10 | XR_ITS ---
WS: [id number] Exam: XR knee LT 1-2V [id number] Date/Time of Exam: 11/21/2022 10:33 AM Reason For Exam: Evaluate for joint effusion No fracture or joint effusion. The joint compartments are well-maintained. Normal soft tissues. XR/XR knee LT 1-2V [id number] IMPRESSION: 1. Negative left knee.
[2022-11-21 11:27] VITALS: BP 128/71; PULSE 73; RESP 18; TEMP 36.4; O2SAT 93
[2022-11-21] MEDS: vancomycin 1,000 MG in sodium chloride 0.9% 250 ML 250 MG IV (14:36)
[2022-11-21 16:00] VITALS: BP 164/81; PULSE 84; RESP 91; TEMP 36.9; O2SAT 91
--- NOTE | 2022-11-21 16:58 | PM.PN ---
Subjective Subjective: Patient is awake and alert. She has a daughter another family member bedside. She reportedly had a suspected spider bite recently on her right wrist which is healing up. She reportedly had some red streaks up the arm previously possibly lymphatic streaks. There is also reportedly been lots of ticks exposures. Daughter reports recurrent febrile issues in the evenings. She reports recent work-up by oncology. She also notes that patient's Lewy body dementia symptoms work-up worsened surrounding her febrile episodes. Patient endorses some pain and redness in multiple joints. Medications: Reviewed: Yes Vitals/I&O/Wt Last Vital Signs Temp 97.6 F 11/21/22 11:27 Pulse 73 11/21/22 11:27 Resp 18 11/21/22 11:27 BP 128/71 11/21/22 11:27 Pulse Ox 93 11/21/22 11:27 O2 Del Method Room Air 11/21/22 11:27 11/21/22 11/21/22 11/21/22 06:59 14:59 22:59 Intake Total 50 / 2110.14 650 / 650 250 / 900 Output Total 450 / 450 Balance -400 / 1660.14 650 / 650 250 / 900 Weight last 48 hrs Weight 63.639 kg Weight 55.338 kg Physical Exam Narrative: General: Patient is awake. Head: Atraumatic. EOM intact. Neck: No JVD. Cardiovascular: No gallops. No murmurs. Lungs: Clear to auscultation, no use of accessory muscles, no crackles or wheezes. Skin: No jaundice. No rashes. Abdomen: Normal bowel sounds, abdomen soft and nontender. Genito Urinary: Genital exam not performed since complaints not related. Rectal: Rectal exam not performed since no symptoms indicated blood loss. Extremities: No cyanosis or clubbing. Small distal puncture wound on distal right arm. Musculoskeletal: Both knees are slightly erythematous and warm. Trivial joint effusion palpated. Multiple other joints are similar. Neurological: Moves all 4 extremities. No myoclonus. Data 11/21/22 05:16 11/21/22 05:16 Micro: Microbiology 11/20/22 19:53 Blood Culture - Preliminary Blood SPECIMEN COLLECTED 11/20/22 19:53 Blood Culture - Preliminary Blood SPECIMEN COLLECTED A&P Assessment and plan (1) Fever: Fever of unknown origin Differential is broad Follow-up tick panel Discontinue acetaminophen to prevent fever masking Patient has been pancultured, follow-up results (2) Joint pain: Plain film of knees to evaluate for joint effusion Short course ibuprofen Consider steroids Discussed with rheumatology, recommending growing out infection and will evaluate in clinic (3) CVA (cerebral vascular accident): Continue statin (4) Rheumatoid arthritis: Suspect joint pain may be related CCP is pending We will need follow-up with rheumatology Not on any immune modulator therapy Qualifiers: Rheumatoid arthritis location: multiple sites Rheumatoid factor presence: unspecified presence Qualified Code(s): M06.9 - Rheumatoid arthritis, unspecified (5) Bilateral pulmonary embolism: Continue apixaban (6) Hyperlipidemia: Continue atorvastatin Continue Zetia Qualifiers: Hyperlipidemia type: mixed hyperlipidemia Qualified Code(s): E78.2 - Mixed hyperlipidemia Plan DVT prophylaxis: Apixaban CODE STATUS: Full code Attestations Medical Necessity Statement*: Patient presents with fevers of unknown origin and polyarthralgias concerning for infection, malignancy versus rheumatological phenomenon. Patient requires ongoing hospitalization for further work-up and supportive care. Coding Level of Care Code Acute Code for g Fwd Diagnoses Fever R50.9 Joint pain M25.50 CVA (cerebral vascular accident) I63.9 Rheumatoid arthritis M06.9 Rheumatoid arthritis location: multiple sites Rheumatoid factor presence: unspecified presence Bilateral pulmonary embolism I26.99 Hyperlipidemia E78.2 Hyperlipidemia type: mixed hyperlipidemia
[2022-11-21] MEDS: doxycycline 100 mg Tablet PO (17:53)
[2022-11-21] MEDS: ibuprofen 200 mg Tablet 400 MG PO (17:54)
[2022-11-21 19:39] VITALS: BP 113/56; PULSE 87; RESP 15; TEMP 37.1; O2SAT 91
[2022-11-21] MEDS: atorvastatin 40 mg Tablet 20 MG PO (21:09)
[2022-11-21] MEDS: divalproex Sprinkles 125 mg Capsule PO (21:09)
[2022-11-22] VITALS: BP 135/70; PULSE 74; RESP 15; TEMP 36.4; O2SAT 95
[2022-11-22] MEDS: piperacillin-tazobactam 3.375 GM in sodium chloride 0.9% (plus) 50 ML IV ×3 (02:44→18:52)
[2022-11-22 03:53] VITALS: BP 135/70; PULSE 66; RESP 16; TEMP 36.4; O2SAT 97
[2022-11-22 05:55] LABS: Basophils % 0.2 %; Eosinophils # 0.4 10^3/uL (0.0-0.8); Eosinophils % 10.8 %; Hematocrit 29.8 % (37.0-47.0); Hemoglobin 8.9 g/dL (11.5-15.3); Lymphocytes # 1.1 10^3/uL (0.8-4.8); Mean Corpuscular HGB Conc 29.9 g/dL (30.0-36.0); Mean Corpuscular Hemoglobin 25.9 pg (28.0-34.0); Mean Corpuscular Volume 86.6 fl (81-99); Mean Platelet Volume 11.1 fL (7.4-10.4); Monocytes # 0.2 10^3/uL (0.2-0.9); Monocytes % 5.9 %; Neutrophils # 2.23 10^3/uL (1.8-7.7); Neutrophils % 54.9 %; Nucleated Red Blood Cells % 0 %; Platelet Count 203 10^3/cmm (130-400); Red Blood Count 3.44 10^6/uL (4.1-5.3); Red Cell Distribution Width 18.1 % (12.1-15.1); White Blood Count 4.1 10^3/uL (4.0-10.0)
[2022-11-22 06:10] LABS: Alanine Aminotransferase 6 U/L (0-33); Albumin Level 2.1 g/dL (3.5-5.2); Alkaline Phosphatase 51 U/L (35-105); Anion Gap 10.7 (5-19); Aspartate Amino Transferase 14 U/L (0-32); Blood Urea Nitrogen 9 mg/dL (8-23); Calcium 7.9 mg/dL (8.5-10.5); Carbon Dioxide 26 mmol/L (22-29); Chloride 103 mmol/L (98-107); Globulin 5.1 g/dL (1.3-4.6); Glucose 75 mg/dL (65-115); Osmolality Calculated 279 mOsm/kg (285-295); Potassium 3.7 mmol/L (3.5-5.1); Sodium 136 mmol/L (136-145); Total Bilirubin 0.2 mg/dL (0.15-1.2); Total Protein 7.2 g/dL (6.6-8.7)
[2022-11-22 08:24] VITALS: BP 160/82; PULSE 84; RESP 17; TEMP 36.7; O2SAT 94
[2022-11-22] MEDS: vancomycin 1,000 MG in sodium chloride 0.9% 250 ML 250 MG IV (09:23)
[2022-11-22] MEDS: ascorbic acid 500 mg Tablet PO (09:24)
[2022-11-22] MEDS: ezetimibe 10 mg Tablet PO (09:24)
[2022-11-22] MEDS: pantoprazole DR 40 mg Tablet PO (09:24)
[2022-11-22] MEDS: doxycycline 100 mg Tablet PO ×2 (09:24→18:52)
[2022-11-22] MEDS: apixaban 5 mg Tablet 2.5 MG PO ×2 (09:25→18:52)
[2022-11-22] MEDS: fluconazole 100 mg Tablet 150 MG PO (10:00)
--- NOTE | 2022-11-22 10:28 | CT_ITS ---
WS: [id number] CT CHEST, ABDOMEN, AND PELVIS TECHNIQUE: Contrast-enhanced CT of the chest, abdomen, and pelvis with coronal and sagittal reformatt ed images. CLINICAL INFORMATION: Fever of unknown origin COMPARISON: None. DLP: 647.[address] scans at [facility] use at least one of these dose optimization techniques: automated e xposure control; mA and/or kV adjustment per patient size (includes targeted exams where dose is matc hed to clinical indication); or iterative reconstruction. CT CHEST: Moderate chronic emphysematous changes. Chronic interstitial thickening with a few scattered hazy opa cities bilaterally. Small RIGHT and tiny LEFT pleural effusions. Slight bibasilar atelectasis. Cardio megaly. A few small subpleural nodules. Subpleural opacity RIGHT upper lobe along the fissure measuri ng 11 mm likely infectious or inflammatory. Aortic calcification. Cardiomegaly. A few prominent pretracheal lymph nodes unchanged. Enlarged bilat eral axillary lymph nodes unchanged since September 17, 2022. Mild diffuse body wall anasarca. CT ABDOMEN AND PELVIS: Mild diffuse fatty infiltration the liver. Normal portal vein and splenic vein. Normal spleen. Modera te esophageal hiatal hernia. Normal pancreatic parenchymal enhancement. Cholelithiasis. Adrenal gland s are normal. Normal renal parenchymal enhancement. Aortic calcification.Mild diffuse bladder wall thickening. Rectosigmoid constipation. RIGHT femoral h ernia containing nonobstructed loops of small bowel. Prominent bilateral inguinal lymph nodes. CT/CT chest abdpel w/*[id number] IMPRESSION: 1. Cholelithiasis. 2. RIGHT femoral hernia containing nonobstructed loops of small bowel. 3. Bilateral axillary lymphadenopathy similar to September 17, 2022. This is no nspecific. Additional enlarged inguinal lymph nodes. Partially visualized enlar ged lymph nodes in the lower neck. Correlation with history of lymphoma or neop lasm. 4. Mild diffuse fatty infiltration liver. 5. Rectosigmoid constipation. 6. Diffuse bilateral interstitial thickening in both lungs with slight hazy at tenuation. Recommend correlation for edema. Small RIGHT and trace LEFT pleural effusions.
[2022-11-22 10:48] LABS: Erythrocyte Sedimentation Rate 74 mm/hr (0-15)
[2022-11-22 10:54] LABS: C Reactive Protein 57.1 mg/L (0.0-4.9); Creatine Phosphokinase 10 U/L (26-192); Lactate Dehydrogenase 234 U/L (135-214)
[2022-11-22] MEDS: iohexol 350 mg/mL 500 mL Btl (per mL) IV (11:33)
[2022-11-22 12:26] VITALS: BP 158/77; PULSE 83; RESP 15; TEMP 36.7; O2SAT 95
[2022-11-22 13:36] LABS: Cyclic Citrullinated Peptide <16 UNITS
[2022-11-22 13:59] LABS: Lyme AB Screen <0.90 index
--- NOTE | 2022-11-22 15:10 | P.PN_ITS ---
Subjective Subjective: Patient discussed with Dr. Gonzalez with rheumatology. He evaluated patient in 2020. He recommended we definitively rule out any infection during this hospitalization and he will follow her up closely after discharge for management of her rheum conditions. Patient afebrile overnight although she did receive ibuprofen late yesterday afternoon. She reportedly felt very warm last evening associated with sweats. She also endorses diffuse joint pains, worse in her larger joints including shoulder, knees, and ankles. Of note, patient also endorses longstanding bilateral rib pain which previous work up has failed to identify cause. She continues to have these pains. Family bedside and cortez pportive of patient. Discussed plan of care and patient in agreement. Medications: Reviewed: Yes Vitals/I&O/Wt Last Vital Signs Temp 98.0 F 11/22/22 12:26 Pulse 83 11/22/22 12:26 Resp 15 11/22/22 12:26 BP 158/77 11/22/22 12:26 Pulse Ox 95 11/22/22 12:26 O2 Del Method Room Air 11/22/22 08:24 11/22/22 11/22/22 11/22/22 06:59 14:59 22:59 Intake Total 541.25 / 541.25 Balance 541.25 / 541.25 Weight last 48 hrs Weight 63.639 kg Weight 55.338 kg Physical Exam Narrative: General: Patient is awake. Alert. Very pleasant. Head: Atraumatic. EOM intact. Neck: No JVD. Cardiovascular: No gallops. No murmurs. Lungs: Clear to auscultation, no use of accessory muscles, no crackles or wheez es. Skin: No jaundice. No rashes. Abdomen: Normal bowel sounds, abdomen soft and nontender. Genito Urinary: Genital exam not performed since complaints not related. Rectal: Rectal exam not performed since no symptoms indicated blood loss. Extremities: No cyanosis or clubbing. Musculoskeletal: Knees, ankles and shoulders are tender to palpation. Knees and shoulders are warm to palpation, redness over knees not appreciated today. Neurological: Moves all 4 extremities. No myoclonus. Facies somewhat masked. Data 11/22/22 05:17 11/22/22 05:17 Micro: Microbiology 11/21/22 17:15 MRSA Culture - Final Nose 11/20/22 19:53 Blood Culture - Preliminary Blood NEGATIVE TO DATE 11/20/22 19:53 Blood Culture - Preliminary Blood NEGATIVE TO DATE A&P Assessment and plan (1) Fever: Fever of unknown origin Differential is broad Follow-up tick panel D/w rheumatology, we will plan to have her seen in clinic DEY[facility]IRA after discharge Rule out infection with pancultures which are still pending Continue broad spectrum abx as per MAR Repeat inflammatory markers LDH CT CAP (2) Joint pain: NSAIDs are likely best treatment, but may mask fevers Patient reportedly does not tolerate narcotics well, will avoid opiates Plain films reviewed, no joint effusion amenable to darinage Consider steroids once infection is ruled out (3) CVA (cerebral vascular accident): Continue statin (4) Rheumatoid arthritis: Management as above Qualifiers: Rheumatoid arthritis location: multiple sites Rheumatoid factor presence: unspecified presence Qualified Code(s): M06.9 - Rheumatoid arthritis, unspecified (5) Bilateral pulmonary embolism: Continue apixaban (6) Hyperlipidemia: Continue atorvastatin Continue Zetia Qualifiers: Hyperlipidemia type: mixed hyperlipidemia Qualified Code(s): E78.2 - Mixed hyperlipidemia (7) Rib pain: Etiology unclear Start w/ CT scan as above Query slipping rib syndrome given persistent intermittent pain in the setting of weight loss Plan DVT prophylaxis: Apixaban CODE STATUS: Full code Attestations Medical Necessity Statement*: Patient presents with fevers of unknown origin and polyarthralgias concerning for infection, malignancy versus rheumatological phenomenon.? Work up so far has yet to identify culprit. She requies ongoing hospitalization for further work up including CT imaging, following up cultures, IV abx and supportive care. Coding Level of Care Code Acute Code for [facility] Fwd Diagnoses Fever R50.9 Joint pain M25.50 CVA (cerebral vascular accident) I63.9 Rheumatoid arthritis M06.9 Rheumatoid arthritis location: multiple sites Rheumatoid factor presence: unspecified presence Bilateral pulmonary embolism I26.99 Hyperlipidemia E78.2 Hyperlipidemia type: mixed hyperlipidemia Rib pain R07.81
[2022-11-22 16:14] VITALS: BP 152/74; PULSE 83; RESP 17; TEMP 36.4; O2SAT 94
[2022-11-22] MEDS: ibuprofen 200 mg Tablet 400 MG PO (16:53)
[2022-11-22 20:00] VITALS: BP 122/61; PULSE 78; RESP 16; TEMP 36.8; O2SAT 93
[2022-11-22] MEDS: atorvastatin 40 mg Tablet 20 MG PO (21:54)
[2022-11-23] VITALS (7 sets, daily range): BP systolic 125–161; BP diastolic 72–77; PULSE 64–84; RESP 15–20; TEMP 36.4–36.9; O2SAT 90–97
[2022-11-23 01:57] LABS: Basophils % 0.2 %; Eosinophils # 0.2 10^3/uL (0.0-0.8); Eosinophils % 4.9 %; Hematocrit 28.1 % (37.0-47.0); Hemoglobin 8.4 g/dL (11.5-15.3); Lymphocytes # 1.1 10^3/uL (0.8-4.8); Mean Corpuscular HGB Conc 29.9 g/dL (30.0-36.0); Mean Corpuscular Hemoglobin 25.9 pg (28.0-34.0); Mean Corpuscular Volume 86.7 fl (81-99); Mean Platelet Volume 10.5 fL (7.4-10.4); Monocytes # 0.3 10^3/uL (0.2-0.9); Monocytes % 7.2 %; Neutrophils # 2.83 10^3/uL (1.8-7.7); Neutrophils % 63.5 %; Nucleated Red Blood Cells % 0 %; Platelet Count 224 10^3/cmm (130-400); Red Blood Count 3.24 10^6/uL (4.1-5.3); Red Cell Distribution Width 17.9 % (12.1-15.1); White Blood Count 4.5 10^3/uL (4.0-10.0)
[2022-11-23 02:18] LABS: Alanine Aminotransferase 8 U/L (0-33); Albumin Level 2.1 g/dL (3.5-5.2); Alkaline Phosphatase 55 U/L (35-105); Aspartate Amino Transferase 15 U/L (0-32); Blood Urea Nitrogen 9 mg/dL (8-23); Calcium 8.1 mg/dL (8.5-10.5); Carbon Dioxide 28 mmol/L (22-29); Chloride 106 mmol/L (98-107); Glucose 89 mg/dL (65-115); Magnesium 1.9 mg/dL (1.7-2.3); Osmolality Calculated 286 mOsm/kg (285-295); Phosphorus 4.2 mg/dL (2.5-4.5); Sodium 139 mmol/L (136-145); Total Bilirubin 0.2 mg/dL (0.15-1.2); Total Protein 7.1 g/dL (6.6-8.7)
[2022-11-23 02:37] LABS: Vancomycin Trough 11.9 ug/mL (10-15)
[2022-11-23] MEDS: piperacillin-tazobactam 3.375 GM in sodium chloride 0.9% (plus) 50 ML IV ×3 (02:58→17:52)
[2022-11-23] MEDS: vancomycin 1,000 MG in sodium chloride 0.9% 250 ML 250 MG IV (02:59)
[2022-11-23] MEDS: doxycycline 100 mg Tablet PO ×2 (09:56→17:51)
[2022-11-23] MEDS: ezetimibe 10 mg Tablet PO (09:56)
[2022-11-23] MEDS: ascorbic acid 500 mg Tablet PO (09:57)
[2022-11-23] MEDS: pantoprazole DR 40 mg Tablet PO (09:57)
[2022-11-23] MEDS: apixaban 5 mg Tablet 2.5 MG PO ×2 (09:57→17:51)
--- NOTE | 2022-11-23 10:56 | PC.SOCIAL ---
IMM Update pg 2 of IMM updated and reviewed w/ patients daughter who is @ bedside. Copy provided and copy dated, initialed and placed in chart.
[2022-11-23 10:59] LABS: Anti-Nuclear Antibody Pattern Cytoplasmic; Anti-Nuclear Antibody Screen POSITIVE (NEGATIVE)
--- NOTE | 2022-11-23 13:10 | PC.PHAR ---
pharmacy dose vancomycin - trough returned 11.9. order discontinued when PHA sheet updated. no further action necessary
[2022-11-23] MEDS: LORazepam 0.5 mg Tablet 0.25 MG PO (13:14)
[2022-11-23] MEDS: cyclobenzaprine 10 mg Tablet 5 MG PO ×2 (13:15→22:06)
--- NOTE | 2022-11-23 13:49 | PM.CONSULT ---
Providers/Reason For Consult Consulting Physician/Specialty*: Hematology Reason for Consult*: Anemia and elevated serum globulin Requesting Physician: Felton Chong MD Attending Physician: Felton Chong MD Primary Care Provider: Te Gipson MD History of Present Illness History of Present Illness This is an 82 year old woman whom I had previously seen in June 2020 in regard to a significant episode of pulmonary embolism which occurred in the setting of underlying autoimmune disease. At that time she was recommended to continue long-term anticoagulation and to continue her regular follow-up with Dr. Gipson. On 10/10/2022 she had been seen in our office due to concerns about the possibility of myeloma. Her previous laboratory studies from 08/30/2022 had shown moderately severe anemia with hemoglobin 9.8 g and significantly elevated CRP at 79.3 mg/L. Her albumin was low at 2.8 g/dL with calculated serum globulin significantly elevated at 6.6 g/dL. Her protein electrophoresis on 09/24/2022 showed hypoalbuminemia with polyclonal hypergammaglobulinemia. The serum free light chain assay showed elevated free kappa light chain at 161.9 mg/L, elevated free lambda light chain at 118.4 mg/L, and normal kappa/lambda ratio at 1.37. Her evaluation in September included CBC showing hemoglobin 10.5 g with white blood cell count 8700 and platelet count 287,000. Sed rate was elevated at 73 mm/h and the CRP remained elevated at 65.8 mg/L. The protein electrophoresis again reported polyclonal gammopathy. The quantitative immunoglobulin levels included elevated IgG at 4086 mg/dL, elevated IgA at 681 mg/dL, and normal IgM at 59 mg/dL. The serum free light chain assay showed elevated free kappa light chain at 179.7 mg/L, elevated free lambda light chain at 143.2 mg/L and normal kappa/lambda ratio at 1.25. Her bone scan on 10/22/2022 showed several areas of uptake in the frontal calvarium likely due to hyperostosis frontalis. There were no other suspicious lesions noted. On 11/20/2022 she was admitted to the hospital after presenting to the emergency room with recurrent fever, worsening joint pain, and declining mental status. According to the patient's family, her symptoms have been getting progressively worse over period of at least several months, during which time she has had fever intermittently to as high as 102 degrees with associated chills and sweating. She has had worsening generalized joint pain and decreased mobility, to the point that she now has very limited activity. Her ECOG score is 3. Her appetite has been poor, and her weight has dropped 20 pounds. She has had difficulty chewing, and she also has complained of sore throat. She has had nonproductive cough and she has been getting more short of breath. She sometimes has pain in the chest. She has been having a lot of nausea. She was having constipation, but her bowel function recently has been better with MiraLAX. Her bladder function is somewhat variable. At times she has frequency and urgency, but is then unable to void. She has not been having headaches. She does have difficulty with balance. She does not appear to be having focal neurologic symptoms, but she has been having tremor, and there has been some further decline in cognitive function. She also has been having anxiety. Review of Systems Narrative: Review of systems is as noted above. Medications/Allergies Home Medications Medication Instructions Recorded Confirmed Last Taken Type [place] 3-6-9 1 cap PO DAILY 01/15/20 11/21/22 1 Day Ago History ~11/20/22 ascorbic acid (vitamin C) 500 mg 500 mg PO DAILY 01/15/20 11/21/22 1 Day Ago History tablet (Vitamin C) ~11/20/22 calcium carbonate 600 mg calcium 600 mg PO DAILY 06/22/20 11/21/22 1 Day Ago History (1,500 mg) tablet ~11/20/22 cholecalciferol (vitamin D3) 25 25 mcg PO DAILY 06/22/20 11/21/22 1 Day Ago History mcg (1,000 unit) tablet (Vitamin ~11/20/22 D3) multivit with 1 tab PO DAILY 06/22/20 11/21/22 1 Day Ago History fcxdbyvx-bevr-TF-lutein 8 mg ~11/20/22 iron-400 mcg-300 mcg tablet (Centrum Silver Women) albuterol sulfate 90 mcg/actuation 2 puff inhalation Q6H PRN 10/31/21 11/21/22 Unknown Rx aerosol inhaler shortness of breath or wheezing 30 days #8.5 grams ezetimibe 10 mg tablet 10 mg PO DAILY 10/31/21 11/21/22 1 Day Ago History ~11/20/22 furosemide 20 mg tablet (Lasix) 20 mg PO DAILY PRN edema #30 tabs 06/08/22 11/21/22 Unknown Rx apixaban 2.5 mg tablet (Eliquis) 2.5 mg PO BID #180 tabs 06/25/22 11/21/22 1 Day Ago Rx ~11/20/22 atorvastatin 20 mg tablet 20 mg PO BEDTIME #90 tabs 07/25/22 11/20/22 Unknown Rx benzonatate 100 mg capsule 100 mg PO TID PRN cough #45 caps 10/17/22 11/21/22 Unknown Rx divalproex 125 mg tablet,delayed 125 mg PO BEDTIME 11/20/22 11/21/22 11/20/22 History release mirtazapine 15 mg tablet 30 mg PO BEDTIME 11/20/22 11/20/22 11/20/22 History polyethylene glycol 3350 17 gram 17 g PO DAILY 11/20/22 11/20/22 11/20/22 History oral powder packet (Miralax) ondansetron HCl 4 mg tablet 4 mg PO DAILY 11/21/22 11/21/22 1 Day Ago History ~11/20/22 pantoprazole 40 mg tablet,delayed 40 mg PO DAILY 11/21/22 11/21/22 1 Day Ago History release ~11/20/22 Allergies Allergy/AdvReac Type Severity Reaction Status Date / Time Sulfa (Sulfonamide Allergy Unknown unknown Verified 10/17/22 10:52 Antibiotics) sulfamethoxazole Allergy Unknown Verified 10/17/22 10:52 [From Bactrim] tetanus and diphtheria Allergy Unknown Verified 10/17/22 10:52 toxoids trimethoprim [From Bactrim] Allergy Unknown Verified 10/17/22 10:52 Current Medications Generic Name Dose Route Start Last Admin Trade Name Freq PRN Reason Stop Dose Admin Acetaminophen 650 mg 11/20/22 23:17 11/21/22 04:57 Acetaminophen 325 Mg Tablet PO 650 mg Q6H PRN Administration Mild/Mod Pain Or Temp >/= 101 Apixaban 2.5 mg 11/21/22 09:00 11/23/22 09:57 Apixaban 5 Mg Tablet PO 2.5 mg BID YANDY Administration Ascorbic Acid 500 mg 11/21/22 09:00 11/23/22 09:57 Ascorbic Acid 500 Mg Tablet PO 500 mg DAILY YANDY Administration Atorvastatin Calcium 20 mg 11/21/22 21:00 11/22/22 21:54 Atorvastatin 40 Mg Tablet PO 20 mg BEDTIME YANDY Administration Cyclobenzaprine HCl 5 mg 11/23/22 12:27 11/23/22 13:15 Cyclobenzaprine 10 Mg Tablet PO 5 mg TID PRN Administration MUSCLE SPASMS Divalproex Sodium 125 mg 11/21/22 21:00 11/22/22 21:55 Divalproex Sprinkles 125 Mg Capsule PO Not Given BEDTIME YANDY Doxycycline Monohydrate 100 mg 11/21/22 18:00 11/23/22 09:56 Doxycycline 100 Mg Tablet PO 100 mg BID YANDY Administration Protocol Ezetimibe 10 mg 11/21/22 09:00 11/23/22 09:56 Ezetimibe 10 Mg Tablet PO 10 mg DAILY YANDY Administration Fluconazole 150 mg 11/22/22 08:30 11/22/22 10:00 Fluconazole 100 Mg Tablet PO 150 mg Q2D YANDY Administration Piperacillin Sod/Tazobactam 50 mls @ 12.5 mls/hr 11/21/22 02:00 11/23/22 11:30 Sod 3.375 gm/ Sodium Chloride IV 12.5 mls/hr Q8H YANDY Administration Ibuprofen 400 mg 11/20/22 23:17 11/22/22 16:53 Ibuprofen 200 Mg Tablet PO 400 mg Q6H PRN Administration Mild/Mod Pain Or Temp >/= 101 Lorazepam 0.25 mg 11/23/22 12:27 11/23/22 13:14 Lorazepam 0.5 Mg Tablet PO 0.25 mg Q4H PRN Administration ANXIETY Mirtazapine 30 mg 11/21/22 21:00 11/22/22 21:56 Mirtazapine 15 Mg Tablet PO Not Given BEDTIME YANDY Pantoprazole Sodium 40 mg 11/21/22 09:00 11/23/22 09:[address] 40 Mg Tablet PO 40 mg DAILY YANDY Administration PFSH Acute PFSH: Medical History Hyperlipidemia Lupus (systemic lupus erythematosus) No pertinent past medical history neghx: htn,dm,thyroid PCP: Dr. Gipson Pulmonary embolism Rheumatoid arthritis DR. Garcia Sjogrens syndrome Dr. Garcia Surgical History History of breast surgery benign tumors History of cataract surgery History of hemorrhoidectomy History of hernia repair bilateral inguinal History of hysterectomy one ovary spared. TVH; for benign reasons. Family History Brother Cancer lung cancer Diabetes Sister Diabetes Cancer pancreatic cncer Colon cancer dx age 68 Uterine cancer dx age 50's Son No problems noted. Mother , AT AGE 78 Diabetes Stroke Father , IN HIS LATE 80'S Heart disease Sister No problems noted. Denies family history of Ovarian cancer Hyperlipidemia Breast cancer Hypertension Social History Smoking and tobacco status: never smoked Second hand smoke exposure: Yes Alcohol intake: never Substance/Drug Use: never Lives independently: Yes Marital status: Marital status details: 08/10/20 61 yrs Pets and animals: Yes (outside) Do you think of yourself as: Straight/Heterosexual Female Reproductive History: Para: 3 Spontaneous abortions: Yes (2) Vitals/I&O/Wt Last Vital Signs Temp 98 F 11/23/22 12:00 Pulse 73 11/23/22 12:00 Resp 19 H 11/23/22 12:00 BP 158/76 11/23/22 12:00 Pulse Ox 96 11/23/22 12:00 O2 Del Method Room Air 11/23/22 04:00 11/22/22 11/23/22 11/23/22 22:59 06:59 14:59 Intake Total 168.75 / 1070.00 300 / 1370.00 530 / 530 Balance 168.75 / 1070.00 300 / 1370.00 530 / 530 Physical Exam Narrative: Constitutional: She appears generally weak, and she has very limited mobility. Eyes: Sclerae nonicteric. Conjunctivae clear. ENMT: No lesions noted in the oral cavity. Neck: Neck shows no mass or thyromegaly. Hematologic/Lymphatic: No cervical or clavicular adenopathy. However very small axillary lymph nodes palpable bilaterally. Respiratory: Lungs show pretty good air movement. There are fine rales audible bilaterally. Cardiovascular: Heart rhythm is regular. There is no murmur, gallop, or rub noted. Abdomen: Soft and non-tender. Liver and spleen are not enlarged. There is no abdominal mass or ascites noted and there is no inguinal adenopathy. Extremities: No edema. Pedal pulses are palpable bilaterally. Integumentary: No rashes. No suspicious skin lesions noted. Neurologic: She has some mild tremor which appears worse on the left. There are no focal neurologic deficits noted. Data 11/23/22 01:46 11/23/22 01:46 Other Labs: Her laboratory studies from 11/20/2022 included CBC showing hemoglobin 10.0 g, white blood cell count 8700, and platelet count 222,000. The sed rate was elevated at 65 mm/h. CRP was elevated at 67.8 mg/L. Comprehensive metabolic profile showed normal renal function with BUN 15 and creatinine 0.6 mg/dL. The bilirubin and liver enzymes were normal. The serum albumin was low at 2.8 g/dL with calculated serum globulin 6.2 g/dL. LDH was minimally elevated at 215/214 U/L. The serum iron studies show mildly decreased transferrin saturation of 15.6% with ferritin elevated at 411 ng/mL. B12 was normal at 799 pg/mL. TSH mildly elevated at 5.41 ?IU/mL. Protein electrophoresis again showed polyclonal gammopathy. The serum free light chain assay showed elevated free kappa light chain and elevated free lambda light chain, as before, but with normal kappa/lambda ratio at 1.33. Her subsequent laboratory studies included PORTILLO screen which was positive at 1:1280. Micro: Microbiology 11/21/22 17:15 MRSA Culture - Final Nose CT Chest: Radiologist's impression: CT of the chest reported chronic interstitial thickening with a few scattered hazy opacities bilaterally. Also noted were small right and tiny left pleural effusions, a few small subpleural nodules, and a subpleural opacity in the right upper lobe along the fissure measuring 11 mm, likely infectious or inflammatory. CT Abd/Pel: Radiologist's impression: There was evidence of right femoral hernia containing nonobstructed loops of bowel and there was mild diffuse fatty infiltration of the liver. There was evidence of rectosigmoid constipation. 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 There is been a significant decline in her general condition over the past several months, including weakness/fatigue, anorexia/weight loss, joint pain and stiffness with decreased mobility, and intermittent fever, among others. Along with the polyclonal gammopathy, she has mild to moderately severe anemia, hypoalbuminemia, and significantly elevated inflammatory markers. Although an underlying infectious process cannot be entirely excluded, the findings are most consistent with active autoimmune disease, and I would recommend starting empiric steroid therapy. At this point there appears to be no evidence for myeloma or other malignancy. Coding Level of Care Code Acute Code for [facility] Fwd Diagnoses Hyperproteinemia E88.09 Time Spent (min) 60
[2022-11-23] MEDS: predniSONE 20 mg Tablet 60 MG PO (15:32)
--- NOTE | 2022-11-23 15:57 | PM.PN ---
Subjective Subjective: Patient reports diffuse joint pains which she describes as severe. Had extended conversation with patient two daughters, granddaughter and regarding current work up findings, differential diagnosis, and treatment plan. Family did note her history of trouble swallowing and concern for esophageal findings on CT imaging. Also note anxiety attacks that progressively escalate. Family and patient in agreement. Patient endorses diaphoretic episode last evening. Again took ibuprofen in afternoon yesterday, query if that is masking fever. Medications: Reviewed: Yes Vitals/I&O/Wt Last Vital Signs Temp 98.3 F 11/23/22 15:02 Pulse 83 11/23/22 15:02 Resp 20 H 11/23/22 15:02 BP 158/75 11/23/22 15:02 Pulse Ox 93 11/23/22 15:02 O2 Del Method Room Air 11/23/22 04:00 11/23/22 11/23/22 11/23/22 06:59 14:59 22:59 Intake Total 300 / 1370.00 530 / 530 50 / 580 Balance 300 / 1370.00 530 / 530 50 / 580 Physical Exam Narrative: General: Patient appears to initially sleeping but awakens and is interactive. Has an episodes of bilateral upper and shoulder pain/spasm? during interaction. Head: Atraumatic. EOM intact. Neck: No JVD. Cardiovascular: No gallops. No murmurs. Lungs: Clear to auscultation, no use of accessory muscles, no crackles or wheezes. Skin: No jaundice. No rashes. Abdomen: Normal bowel sounds, abdomen soft and nontender. Genito Urinary: Genital exam not performed since complaints not related. Rectal: Rectal exam not performed since no symptoms indicated blood loss. Extremities: No cyanosis or clubbing. Musculoskeletal: Large joints are diffusely tender, still warm possibly less so than prior exam. Overlying erythema is improved, nearly resolved. Neurological: Moves all 4 extremities. No myoclonus Data 11/23/22 01:46 11/23/22 01:46 Micro: Microbiology 11/21/22 17:15 MRSA Culture - Final Nose A&P Assessment and plan (1) Fever: Fever of unknown origin Differential is broad, favoring inflammation from untreated autoimmune disorder CT imaging reviewed Follow-up tick panel, fungal labs, cultures; suspecting infection is less likely MRSA negative, discontinue vancomycin Continue doxycycline for now Continue Zosyn for now Continue Diflucan for yeast infection ppx Needs rheumatology evaluation Hem/Onc consult, pt d/w Dr Wilson who agreed to consult (2) Joint pain: Start prednisone 60 mg daily Trial of low dose muscle relaxer Encourage OOB and PT as symptoms improve (3) CVA (cerebral vascular accident): Continue statin (4) Rheumatoid arthritis: RF borderline elevated CCP WNL Management as above Qualifiers: Rheumatoid arthritis location: multiple sites Rheumatoid factor presence: unspecified presence Qualified Code(s): M06.9 - Rheumatoid arthritis, unspecified (5) Bilateral pulmonary embolism: Continue apixaban (6) Hyperlipidemia: Continue atorvastatin Continue Zetia Qualifiers: Hyperlipidemia type: mixed hyperlipidemia Qualified Code(s): E78.2 - Mixed hyperlipidemia (7) Rib pain: 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 Coding Level of Care Code Acute Code for g Fwd Diagnoses Fever R50.9 Joint pain M25.50 CVA (cerebral vascular accident) I63.9 Rheumatoid arthritis M06.9 Rheumatoid arthritis location: multiple sites Rheumatoid factor presence: unspecified presence Bilateral pulmonary embolism I26.99 Hyperlipidemia E78.2 Hyperlipidemia type: mixed hyperlipidemia Rib pain R07.81 Anxiety F41.9
[2022-11-23] MEDS: atorvastatin 40 mg Tablet 20 MG PO (22:00)
[2022-11-24] MEDS: piperacillin-tazobactam 3.375 GM in sodium chloride 0.9% (plus) 50 ML IV ×3 (01:28→17:45)
[2022-11-24 04:00] VITALS: BP 119/63; PULSE 70; RESP 18; TEMP 36.4; O2SAT 93
[2022-11-24 05:15] LABS: Basophils % 0.2 %; Hematocrit 30.8 % (37.0-47.0); Hemoglobin 9.4 g/dL (11.5-15.3); Lymphocytes # 0.7 10^3/uL (0.8-4.8); Lymphocytes % 12.9 %; Mean Corpuscular HGB Conc 30.5 g/dL (30.0-36.0); Mean Corpuscular Volume 85.1 fl (81-99); Monocytes # 0.1 10^3/uL (0.2-0.9); Monocytes % 1.8 %; Neutrophils # 4.75 10^3/uL (1.8-7.7); Neutrophils % 84.9 %; Nucleated Red Blood Cells % 0 %; Platelet Count 275 10^3/cmm (130-400); Red Blood Count 3.62 10^6/uL (4.1-5.3); Red Cell Distribution Width 17.8 % (12.1-15.1); White Blood Count 5.6 10^3/uL (4.0-10.0)
[2022-11-24 05:31] LABS: Alanine Aminotransferase 6 U/L (0-33); Albumin Level 2.3 g/dL (3.5-5.2); Alkaline Phosphatase 55 U/L (35-105); Anion Gap 12.8 (5-19); Aspartate Amino Transferase 18 U/L (0-32); Blood Urea Nitrogen 9 mg/dL (8-23); Carbon Dioxide 25 mmol/L (22-29); Chloride 103 mmol/L (98-107); Globulin 5.4 g/dL (1.3-4.6); Glucose 133 mg/dL (65-115); Magnesium 1.8 mg/dL (1.7-2.3); Osmolality Calculated 285 mOsm/kg (285-295); Phosphorus 3.9 mg/dL (2.5-4.5); Potassium 3.8 mmol/L (3.5-5.1); Sodium 137 mmol/L (136-145); Total Bilirubin 0.2 mg/dL (0.15-1.2); Total Protein 7.7 g/dL (6.6-8.7)
[2022-11-24 08:00] VITALS: BP 133/77; PULSE 87; RESP 18; TEMP 36.4; O2SAT 93
[2022-11-24] MEDS: predniSONE 20 mg Tablet 60 MG PO (10:51)
[2022-11-24] MEDS: doxycycline 100 mg Tablet PO ×2 (10:51→17:44)
[2022-11-24] MEDS: ezetimibe 10 mg Tablet PO (10:51)
[2022-11-24] MEDS: fluconazole 100 mg Tablet 150 MG PO (10:52)
[2022-11-24] MEDS: sertraline 50 mg Tablet 25 MG PO (10:52)
[2022-11-24] MEDS: ascorbic acid 500 mg Tablet PO (10:53)
[2022-11-24] MEDS: pantoprazole DR 40 mg Tablet PO (10:53)
[2022-11-24] MEDS: apixaban 5 mg Tablet 2.5 MG PO ×2 (10:53→17:44)
[2022-11-24 12:00] VITALS: BP 159/95; PULSE 88; RESP 16; TEMP 36.8; O2SAT 94
[2022-11-24 16:00] VITALS: BP 131/74; PULSE 65; RESP 16; TEMP 36.6; O2SAT 95
[2022-11-24] MEDS: cyclobenzaprine 10 mg Tablet 5 MG PO (17:45)
--- NOTE | 2022-11-24 19:09 | PM.PN ---
Subjective Subjective: Patient is up to bedside chair this morning. She is able to feed herself breakfast. She states she is feeling better today with improvement in her diffuse joint pains. She started prednisone yesterday afternoon. Daughter is bedside and supportive. Although patient did not fever, daughter noted another severe night sweat last night. Followed up discussion from yesterday regarding trial of Flexeril and lowest dose Ativan for severe anxiety. Daughter reports the Flexeril helped her msk pain and function without noticable adverse side effects. The ativan reportedly calmed her but did cause confusion which is not terribly surprising. Discussed limited and monitored use of ativan for onset of severe anxiety as palliative measures as it does come with a side effect profile. We discussed initiation of more appropriate custodial anxiolytic, specifically sertraline, given it's more favorable side effect profile. We discussed depression as I suspect there's an element of depression stemming from her chronic medical conditions. This past year with her loss of function, pain, and other ailments has clearly been very difficult for her. Carmen states she does still find things in her life that bring her happiness, she gives a few examples such as seeing her various family members. She's clearly very proud of them. She does have a desire to keep living. She wants her quality of life and function to improve as does her family. Medications: Reviewed: Yes Vitals/I&O/Wt Last Vital Signs Temp 97.8 F 11/24/22 16:00 Pulse 65 11/24/22 16:00 Resp 16 11/24/22 16:00 BP 131/74 11/24/22 16:00 Pulse Ox 95 11/24/22 16:00 O2 Del Method Room Air 11/24/22 16:00 11/24/22 11/24/22 11/24/22 06:59 14:59 22:59 Intake Total 50 / 680 770 / 770 480 / 1250 Balance 50 / 680 770 / 770 480 / 1250 Physical Exam Narrative: General: Patient is up to bedside chair. Awake. Frail appearing. Very pleasant. Head: Atraumatic. EOM intact. Masked facies. Neck: No JVD. Cardiovascular: No gallops. No murmurs. Lungs: Clear to auscultation, no use of accessory muscles, no crackles or wheezes. Skin: No jaundice. No rashes. Abdomen: Normal bowel sounds, abdomen soft and nontender. Genito Urinary: Genital exam not performed since complaints not related. Rectal: Rectal exam not performed since no symptoms indicated blood loss. Extremities: No cyanosis or clubbing. Musculoskeletal: Joints much less tender to palpation. No overlying erythema noted. Neurological: Moves all 4 extremities. No myoclonus Data 11/24/22 04:39 11/24/22 04:39 A&P Assessment and plan (1) Fever: Fever of unknown origin Differential favors inflammation 2/2 autoimmune disease Infection increasingly less likely, discontinue Zosyn Malignancy unlikely, input from Dr Wilson greatly appreciated Continue doxycycline for now Follow up tick panel, fungal labs Continue Diflucan for yeast infection ppx while on abx Needs rheumatology evaluation Continue prednisone 60 mg daily (2) Joint pain: Improving, suspect steroids are starting to work Continue low dose Flexril PRN for muscle spasm/pain Continue OOB and therapy (3) CVA (cerebral vascular accident): Continue statin (4) Rheumatoid arthritis: Patient carries prior dx of Lupus, RA, and Sjogren's, I am unable to confirm she has all three autoimmune conditions, but she clearly has at least one underlying autoimmune condition Continue steroids as above Close follow up with Rheum, consider touching base with rheum again on Saturday Qualifiers: Rheumatoid arthritis location: multiple sites Rheumatoid factor presence: unspecified presence Qualified Code(s): M06.9 - Rheumatoid arthritis, unspecified (5) Bilateral pulmonary embolism: Continue apixaban (6) Hyperlipidemia: Continue atorvastatin Continue Zetia Qualifiers: Hyperlipidemia type: mixed hyperlipidemia Qualified Code(s): E78.2 - Mixed hyperlipidemia (7) Rib pain: Still query slipping rib syndrome given chronicity in the setting of weight fluctuation (8) Anxiety: Discontinue Remeron, defer alternative appetite stimulant to PCP if deemed necessary Start low dose Zoloft, may need titrated over time, discussed common side effects and slow onset of action Continue low dose ativan as needed with goal to wean off as SSRI becomes therapeutic in coming weeks Plan DVT prophylaxis: Apixaban CODE STATUS: Full code Attestations Medical Necessity Statement*: Patient requires ongoing hospitalization for follow infectious labs, IV antibiotics, steroids, trial of anxiolytic, muscle relaxants, therapy, serial labs, and supportive care. Coding Level of Care Code Acute Code for [facility] Fwd Diagnoses Fever R50.9 Joint pain M25.50 CVA (cerebral vascular accident) I63.9 Rheumatoid arthritis M06.9 Rheumatoid arthritis location: multiple sites Rheumatoid factor presence: unspecified presence Bilateral pulmonary embolism I26.99 Hyperlipidemia E78.2 Hyperlipidemia type: mixed hyperlipidemia Rib pain R07.81 Anxiety F41.9
[2022-11-24 19:51] VITALS: BP 157/80; PULSE 76; RESP 19; TEMP 36.7; O2SAT 94
[2022-11-24] MEDS: atorvastatin 40 mg Tablet 20 MG PO (20:28)
[2022-11-24 21:39] LABS: RMSF IGG NOT DETECTED; RMSF IGM NOT DETECTED
[2022-11-24 23:48] VITALS: BP 168/87; PULSE 82; RESP 17; TEMP 36.6; O2SAT 95
[2022-11-25 03:22] VITALS: BP 166/79; PULSE 78; RESP 20; TEMP 36.6; O2SAT 93
[2022-11-25 08:00] VITALS: BP 155/72; PULSE 64; RESP 18; TEMP 36.6; O2SAT 93
[2022-11-25] MEDS: apixaban 5 mg Tablet 2.5 MG PO ×2 (08:45→17:43)
[2022-11-25] MEDS: ezetimibe 10 mg Tablet PO (08:46)
[2022-11-25] MEDS: cyclobenzaprine 10 mg Tablet 5 MG PO ×2 (08:46→17:43)
[2022-11-25] MEDS: LORazepam 0.5 mg Tablet 0.25 MG PO (08:47)
[2022-11-25] MEDS: doxycycline 100 mg Tablet PO ×2 (08:47→17:43)
[2022-11-25] MEDS: ascorbic acid 500 mg Tablet PO (08:47)
[2022-11-25] MEDS: pantoprazole DR 40 mg Tablet PO (08:48)
[2022-11-25] MEDS: sertraline 50 mg Tablet 25 MG PO (08:48)
[2022-11-25] MEDS: predniSONE 20 mg Tablet 60 MG PO (08:49)
--- NOTE | 2022-11-25 09:35 | PC.SOCIAL ---
IMM update IMM updated with patient and daughter at bedside. Verbalized an understanding. Copy Pg 2 provided. Initialled, dated, timed, and placed in chart.
[2022-11-25 12:00] VITALS: BP 149/84; PULSE 70; RESP 17; TEMP 36.4; O2SAT 94
--- NOTE | 2022-11-25 13:37 | PM.PN ---
Subjective Subjective: Patient is up to bedside chair. Daughter is bedside and supportive. Patient reports she is feeling better. She is still getting some rib discomfort with deep breathing. Reports joint pain has improved. She was able to feed herself yesterday. No fevers overnight, however did have another night sweat. Medications: Reviewed: Yes Vitals/I&O/Wt Last Vital Signs Temp 97.6 F 11/25/22 12:00 Pulse 70 11/25/22 12:00 Resp 17 11/25/22 12:00 BP 149/84 11/25/22 12:00 Pulse Ox 94 11/25/22 12:00 O2 Del Method Room Air 11/25/22 12:00 11/24/22 11/25/22 11/25/22 22:59 06:59 14:59 Intake Total 600 / 1370 240 / 1610 960 / 960 Balance 600 / 1370 240 / 1610 960 / 960 Physical Exam Narrative: General: Patient is in bedside chair. Frail appearing. Very pleasant. Head: Atraumatic. EOM intact. Masked facies. Neck: No JVD. Cardiovascular: No gallops. No murmurs. Lungs: Clear to auscultation, no use of accessory muscles, no crackles or wheezes. Skin: No jaundice. No rashes. Abdomen: Normal bowel sounds, abdomen soft and nontender. Genito Urinary: Genital exam not performed since complaints not related. Rectal: Rectal exam not performed since no symptoms indicated blood loss. Extremities: No cyanosis or clubbing. Musculoskeletal: Joints tenderness to palpation has improved. No overlying erythema noted. Neurological: Moves all 4 extremities. No myoclonus. Occasional stutter. Data 11/24/22 04:39 11/24/22 04:39 A&P Assessment and plan (1) Fever: Fever of unknown origin DDx factors inflammation 2/2 autoimmune disease Malignancy unlikely, input from Dr Wilson greatly appreciated Continue doxycycline for now Follow up tick panel, fungal labs Continue Diflucan for yeast infection ppx while on abx Needs rheumatology evaluation, arrange for follow up on Saturday Continue prednisone 60 mg daily (2) Joint pain: Continue steroids Continue low dose Flexril PRN for muscle spasm/pain Continue OOB and therapy (3) CVA (cerebral vascular accident): Continue statin (4) Rheumatoid arthritis: Patient carries prior dx of Lupus, RA, and Sjogren's, I am unable to confirm she has all three autoimmune conditions, but she clearly has at least one underlying autoimmune condition Continue steroids as above Close follow up with Rheum, arrange follow up on Saturday Qualifiers: Rheumatoid arthritis location: multiple sites Rheumatoid factor presence: unspecified presence Qualified Code(s): M06.9 - Rheumatoid arthritis, unspecified (5) Bilateral pulmonary embolism: Continue apixaban (6) Hyperlipidemia: Continue atorvastatin Continue Zetia Qualifiers: Hyperlipidemia type: mixed hyperlipidemia Qualified Code(s): E78.2 - Mixed hyperlipidemia (7) Rib pain: Still query slipping rib syndrome given chronicity in the setting of weight fluctuation (8) Anxiety: Continue low dose Zoloft, likely may need titrated as outpt Continue low dose ativan as needed with goal to wean off as SSRI becomes therapeutic in coming weeks Plan DVT prophylaxis: Apixaban CODE STATUS: Full code Attestations Medical Necessity Statement*: Patient requires ongoing hospitalization for following up infectious labs, antibiotics, steroids, therapy, serial labs, and supportive care. Coding Level of Care Code Acute Code for [facility] Fwd Diagnoses Fever R50.9 Joint pain M25.50 CVA (cerebral vascular accident) I63.9 Rheumatoid arthritis M06.9 Rheumatoid arthritis location: multiple sites Rheumatoid factor presence: unspecified presence Bilateral pulmonary embolism I26.99 Hyperlipidemia E78.2 Hyperlipidemia type: mixed hyperlipidemia Rib pain R07.81 Anxiety F41.9
[2022-11-25 14:00] VITALS: BP 165/79; PULSE 82; RESP 17; TEMP 36.3; O2SAT 94
[2022-11-25 20:00] VITALS: BP 167/83; PULSE 74; RESP 17; TEMP 36.7; O2SAT 91
[2022-11-25] MEDS: atorvastatin 40 mg Tablet 20 MG PO (20:29)
[2022-11-25 23:39] VITALS: BP 164/78; PULSE 71; RESP 17; TEMP 36.2; O2SAT 95
[2022-11-26 04:00] VITALS: BP 173/89; PULSE 77; RESP 16; TEMP 36.8; O2SAT 94
[2022-11-26 05:19] LABS: Hematocrit 28.7 % (37.0-47.0); Hemoglobin 8.6 g/dL (11.5-15.3); Lymphocytes # 1.7 10^3/uL (0.8-4.8); Lymphocytes % 21.8 %; Mean Corpuscular Hemoglobin 25.9 pg (28.0-34.0); Mean Corpuscular Volume 86.4 fl (81-99); Mean Platelet Volume 10.5 fL (7.4-10.4); Monocytes # 0.8 10^3/uL (0.2-0.9); Monocytes % 9.9 %; Neutrophils # 5.07 10^3/uL (1.8-7.7); Neutrophils % 67.1 %; Nucleated Red Blood Cells % 0 %; Platelet Count 281 10^3/cmm (130-400); Red Blood Count 3.32 10^6/uL (4.1-5.3); Red Cell Distribution Width 17.9 % (12.1-15.1); White Blood Count 7.6 10^3/uL (4.0-10.0)
[2022-11-26 05:34] LABS: Albumin Level 2.3 g/dL (3.5-5.2); Anion Gap 11.4 (5-19); Blood Urea Nitrogen 16 mg/dL (8-23); C Reactive Protein 11.2 mg/L (0.0-4.9); Calcium 8.2 mg/dL (8.5-10.5); Carbon Dioxide 25 mmol/L (22-29); Chloride 102 mmol/L (98-107); Glucose 81 mg/dL (65-115); Phosphorus 1.8 mg/dL (2.5-4.5); Potassium 3.4 mmol/L (3.5-5.1); Sodium 135 mmol/L (136-145)
[2022-11-26 05:40] LABS: Procalcitonin 0.05 ng/mL (0-0.5)
[2022-11-26 06:03] LABS: Erythrocyte Sedimentation Rate 69 mm/hr (0-15)
[2022-11-26 07:39] VITALS: BP 167/82; PULSE 60; RESP 16; TEMP 36.6; O2SAT 92
[2022-11-26] MEDS: predniSONE 20 mg Tablet 60 MG PO (08:28)
[2022-11-26] MEDS: fluconazole 100 mg Tablet 150 MG PO (08:28)
[2022-11-26] MEDS: pantoprazole DR 40 mg Tablet PO (08:28)
[2022-11-26] MEDS: ascorbic acid 500 mg Tablet PO (08:28)
[2022-11-26] MEDS: sertraline 50 mg Tablet 25 MG PO (08:28)
[2022-11-26] MEDS: cyclobenzaprine 10 mg Tablet 5 MG PO (08:29)
[2022-11-26] MEDS: ezetimibe 10 mg Tablet PO (08:29)
[2022-11-26] MEDS: LORazepam 0.5 mg Tablet 0.25 MG PO (08:29)
[2022-11-26] MEDS: doxycycline 100 mg Tablet PO (08:30)
[2022-11-26] MEDS: apixaban 5 mg Tablet 2.5 MG PO (08:30)
[2022-11-26 12:00] VITALS: BP 162/83; PULSE 72; RESP 16; TEMP 36.6; O2SAT 92
--- NOTE | 2022-11-26 13:17 | P.DS_ITS ---
Discharge Providers Date of Admission: 11/20/22 21:45 Date of Discharge: November 26, 2022 Attending Provider at Admission: Faith Hodges MD Attending Provider at Discharge: Jaleesa López MD Primary Care Provider: Te Gipson MD Diagnoses at Discharge Discharge Diagnosis (1) Fever: Status: Acute (2) Joint pain: Status: Acute (3) CVA (cerebral vascular accident): Status: Chronic Permanent problem details: residual confusion at times and facial twitch lower face, some hallucinations, takes risperidone, aspirin and statin (4) Rheumatoid arthritis: Status: Chronic Qualifiers: Rheumatoid arthritis location: multiple sites Rheumatoid factor presence: unspecified presence Qualified Code(s): M06.9 - Rheumatoid arthritis, unspecified (5) Bilateral pulmonary embolism: Status: Acute (6) Hyperlipidemia: Status: Chronic Qualifiers: Hyperlipidemia type: mixed hyperlipidemia Qualified Code(s): E78.2 - Mixed hyperlipidemia (7) Rib pain: Status: Acute (8) Anxiety: Status: Acute Reason for Visit Reason for Visit: ams Hospital Course Hospital Course 82 year old lady with diagnosis of rheumatoid arthritis, Sjogren's syndrome and systemic lupus erythematosus, previosuly followed by rheumatology here, theerfater decided not to take any medications so has not been seen in a while. 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 She had been evaluated for many months of fever, night sweats, fatigue, joint pain and rash as outpatient, there was suspcion for MM due to elevated kappa and lambda bands but with preserved ratios. She currently presented to the hospital on 08/02/22 with recurrent fever, worsening joint pain, and declining mental status.? According to the patient's family, her symptoms have been getting progressively worse over period of at least several months, during which time she has had fever intermittently to as high as 102 degrees with associated chills and sweating.? She has had worsening generalized joint pain and decreased mobility, to the point that she now has very limited activity.? Her ECOG score is 3.? Her appetite has been poor, and her weight has dropped 20 pounds.? She has had difficulty chewing. she has raynaud's pheomenon affecting both hands and feet. Her laboratory studies from 11/20/2022 included CBC showing hemoglobin 10.0 g, white blood cell count 8700, and platelet count 222,000.? The sed rate was elevated at 65 mm/h.? CRP was elevated at 67.8 mg/L.? Comprehensive metabolic profile showed normal renal function wand normal liver enzymes.? LDH was minimally elevated at 215/214 U/L.? The serum iron studies show mildly decreased transferrin saturation of 15.6% with ferritin elevated at 411 ng/mL.? B12 was normal at 799 pg/mL.? TSH mildly elevated at 5.41 ?IU/mL.? Protein electrophoresis again showed polyclonal gammopathy.? The serum free light chain assay showed elevated free kappa light chain and elevated free lambda light chain, as before, but with normal kappa/lambda ratio at 1.33.? Her subsequent laboratory studies included PORTILLO screen which was positive at 1:1280, cytoplasmic A. CT CAP showed chronic interstitial thickening with a few scattered hazy opacities bilaterally and scattered lymphadenopathy. She was evaluated by oncology during admission and overall impression was that of polyclonal gammopathy in association with known underlying autoimmune disease.At this point there appears to be no evidence for myeloma or other malignancy. Trial of steroids were recommended and she was started on Prednisone 60mg daily to which she responded very well. Her fever is resolved. Her joint swelling is improved. Patient feels symptomatically better with few joint pain. Karen swallowing is better. She is being discharged in an improved state on prednisone steroid taper with recommendation to follow up with rheumatology as outpatient to consider steroid sparing therapies. Physical Exam Narrative: General: No acute distress, AO x3 HEENT: PERRLA, pupils bilaterally equal and reactive, pallors not present Chest: Normal vesicular breath sounds, no added sounds, equal good air entry bilaterally CVS: S1-S2 regular, no murmurs, no tachycardia, no gallops, no rubs Abdomen: Soft, nontender, no organomegaly, bowel sounds present Neuro: No focal deficits, no facial deformity, AO x3, power 5/5 in all limbs Discharge Data Studies Completed and Pending Completed Studies During Hospitalization Category Date Time Status CT chest abdomen pelvis [CT chest abdpel w/*[id number] Cat Scan 11/22/22 10:28 Completed ] Routine CT head wo con* [id number] Stat Cat Scan 11/20/22 19:48 Completed XR chest 1V portable [id number] Stat Exams 11/20/22 19:14 Completed XR knee LT 1-2V [id number] Routine Exams 11/21/22 10:10 Completed XR knee RT 1-2V [id number] Routine Exams 11/21/22 10:10 Completed Pending at discharge Category Date Time Status 1-3 Beta D Glucan [Fungitell Glucan Assay (Blood)] Lab 11/22/22 10:26 Received Routine Aspergillus DNA Qualitativ PCR Routine Lab 11/22/22 10:26 Received Tick Panel Stat Lab 11/20/22 22:48 Results Radiology Impressions Chest X-Ray 11/20/22 19:14 IMPRESSION: Cardiomegaly and mild pulmonary vascular congestion. Head CT 11/20/22 19:48 IMPRESSION: 1. Negative for intracranial hemorrhage or mass effect. 2. Mild diffuse white matter disease likely reflecting chronic microvascular ischemic changes. 3. Right parietooccipital lobe chronic infarct again seen. 4. Chronic bilateral thalamic and basal ganglia lacunar infarcts again seen. Knee X-Ray 11/21/22 10:10 IMPRESSION: 1. Negative left knee. Chest/Abdomen/Pelvis CT 11/22/22 10:28 IMPRESSION: 1. Cholelithiasis. 2. RIGHT femoral hernia containing nonobstructed loops of small bowel. 3. Bilateral axillary lymphadenopathy similar to September 17, 2022. This is nonspecific. Additional enlarged inguinal lymph nodes. Partially visualized enlarged lymph nodes in the lower neck. Correlation with history of lymphoma or neoplasm. 4. Mild diffuse fatty infiltration liver. 5. Rectosigmoid constipation. 6. Diffuse bilateral interstitial thickening in both lungs with slight hazy attenuation. Recommend correlation for edema. Small RIGHT and trace LEFT pleural effusions. Laboratory Results WBC 7.6 10^3/uL (4.0-10.0) 11/26/22 04:37 RBC 3.32 10^6/uL (4.1-5.3) L 11/26/22 04:37 Hgb 8.6 g/dL (11.5-15.3) L 11/26/22 04:37 Hct 28.7 % (37.0-47.0) L 11/26/22 04:37 MCV 86.4 fl (81-99) 11/26/22 04:37 MCH 25.9 pg (28.0-34.0) L 11/26/22 04:37 MCHC 30.0 g/dL (30.0-36.0) 11/26/22 04:37 RDW 17.9 % (12.1-15.1) H 11/26/22 04:37 Plt Count 281 10^3/cmm (130-400) 11/26/22 04:37 MPV 10.5 fL (7.4-10.4) H 11/26/22 04:37 Neut % (Auto) 67.1 % 11/26/22 04:37 Lymph % (Auto) 21.8 % 11/26/22 04:37 [place] % (Auto) 9.9 % 11/26/22 04:37 Eos % (Auto) 0.0 % 11/26/22 04:37 Baso % (Auto) 0.0 % 11/26/22 04:37 Neut # (Auto) 5.07 10^3/uL (1.8-7.7) 11/26/22 04:37 Lymph # (Auto) 1.7 10^3/uL (0.8-4.8) 11/26/22 04:37 [facility] # (Auto) 0.8 10^3/uL (0.2-0.9) 11/26/22 04:37 Eos # (Auto) 0.0 10^3/uL (0.0-0.8) 11/26/22 04:37 Baso # (Auto) 0.0 10^3/uL (0.0-0.1) 11/26/22 04:37 Nucleated RBC % (auto) 0 % 11/26/22 04:37 Nucleated RBCs # 0.0 /100WBC 11/26/22 04:37 ESR 69 mm/hr (0-15) H 11/26/22 04:37 PT 14.40 SECONDS (12.1-14.9) 11/20/22 19:43 INR 1.09 (0.8-1.2) 11/20/22 19:43 Sodium 135 mmol/L (136-145) L 11/26/22 04:37 Potassium 3.4 mmol/L (3.5-5.1) L 11/26/22 04:37 Chloride 102 mmol/L (98-107) 11/26/22 04:37 Carbon Dioxide 25 mmol/L (22-29) 11/26/22 04:37 Anion Gap 11.4 (5-19) 11/26/22 04:37 BUN 16 mg/dL (8-23) 11/26/22 04:37 Creatinine 0.5 mg/dL (0.5-0.9) 11/26/22 04:37 GFR Calculation Not Reportable 11/26/22 04:37 Glucose 81 mg/dL (65-115) 11/26/22 04:37 Calculated Osmolality 285 mOsm/kg (285-295) 11/24/22 04:39 Lactic Acid 1.7 mmol/L (0.5-2.2) 11/20/22 19:43 Uric Acid 4.8 mg/dL (2.4-5.7) 11/20/22 19:48 Calcium 8.2 mg/dL (8.5-10.5) L 11/26/22 04:37 Phosphorus 1.8 mg/dL (2.5-4.5) L 11/26/22 04:37 Magnesium 2.0 mg/dL (1.7-2.3) 11/26/22 04:37 Total Bilirubin 0.2 mg/dL (0.15-1.2) 11/24/22 04:39 AST 18 U/L (0-32) 11/24/22 04:39 ALT 6 U/L (0-33) 11/24/22 04:39 Alkaline Phosphatase 55 U/L (35-105) 11/24/22 04:39 Lactate Dehydrogenase 234 U/L (135-214) H 11/22/22 05:55 Creatine Kinase 10 U/L (26-192) L 11/22/22 05:55 C-Reactive Protein 11.2 mg/L (0.0-4.9) H 11/26/22 04:37 Total Protein 7.7 g/dL (6.6-8.7) 11/24/22 04:39 Albumin 2.3 g/dL (3.5-5.2) L 11/26/22 04:37 Globulin 5.4 g/dL (1.3-4.6) H 11/24/22 04:39 Procalcitonin 0.05 ng/mL (0-0.5) 11/26/22 04:37 TSH 5.41 uIU/mL (0.27-4.20) H 11/20/22 19:48 Urine Color Yellow (Yellow) 11/20/22 20:23 Urine Appearance Clear (CLEAR) 11/20/22 20:23 Urine pH 6.5 (5-7) 11/20/22 20:23 Ur Specific [place] 1.010 (1.005-1.030) 11/20/22 20:23 Urine Protein 1+ (Negative) H 11/20/22 20:23 Urine Glucose (UA) Norm (Normal) 11/20/22 20: Urine Ketones Negative (Negative) 11/20/22 20:23 Urine Blood Trace (Negative) H 11/20/22 20:23 Urine Nitrate Negative (Negative) 11/20/22 20: Urine Bilirubin Neg (Negative) 11/20/22 20: Urine Urobilinogen Neg mg/dL (Negative) 11/20/22 20:23 Ur Leukocyte Esterase Negative (Negative) 11/20/22 20:23 Urine RBC 0-4 /hpf (0-2) H 11/20/22 20:23 Urine WBC None /hpf (0-5) 11/20/22 20:23 Ur Squamous Epith Cells None /hpf (0-5) 11/20/22 20:23 Amorphous Sediment Not Reportable 11/20/22 20:23 Urine Bacteria Trace /hpf (NONE) 11/20/22 20:23 Urine Mucus 1+ /hpf 11/20/22 20:23 Vancomycin Trough 11.9 ug/mL (10-15) 11/23/22 01:46 Rheumatoid Factor 15.0 IU/mL (0-14) H 11/20/22 19:48 Cycl Citrul Peptide IgG <16 UNITS 11/21/22 05:16 PORTILLO Screen Positive (NEGATIVE) A 11/21/22 05:16 PORTILLO Titer 1:80 titer H 11/21/22 05:16 PORTILLO Titer 2 1:1280 titer H 11/21/22 05:16 PORTILLO Pattern Cytoplasmic A 11/21/22 05:16 PORTILLO Pattern 2 A 11/21/22 05:16 Lyme Ab (Western Blot) <0.90 index 11/21/22 05:16 Rickettsia IgG Ab Not detected 11/21/22 05:16 Rickettsia IgM Ab Not detected 11/21/22 05:16 Vitals Last Vital Signs Temp 97.8 F 11/26/22 12:00 Pulse 72 11/26/22 12:00 Resp 16 05/01/23 12:00 BP 162/83 11/26/22 12:00 Pulse Ox 92 11/26/22 12:00 O2 Del Method Room Air 11/25/22 14:00 Discharge Plan Discharge Patient Disposition: Home Condition: Stable Prescriptions: New Zoloft 25 mg tablet 25 mg PO DAILY Qty: 30 1RF cyclobenzaprine 10 mg Tablet 5 mg PO TID PRN (Reason: Muscle Spasms) 30 Days Qty: 90 1RF lorazepam 0.5 mg Tablet 0.25 mg PO TID PRN (Reason: Anxiety) 30 Days Qty: 60 1RF fluconazole 100 mg Tablet 150 mg PO Q2D PRN (Reason: thrush) 30 Days Qty: 15 0RF prednisone 20 mg tablet See Rx Instructions .ROUTE .COMPLEX 30 Days Qty: 60 1RF Rx Instructions: take 60mg(3 tab) daily for 3 days,then reduce to 40mg (2tablets) for next 5 days, then reduce to 20mg daily for next 5 days, then reduce to 10 mg daily 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 Continued ezetimibe 10 mg tablet 10 mg PO DAILY albuterol sulfate 90 mcg/actuation HFA aerosol inhaler 2 puff inhalation Q6H PRN (Reason: shortness of breath or wheezing) 30 Days Qty: 8.5 6RF Eliquis 2.5 mg tablet 2.5 mg PO BID Qty: 180 3RF benzonatate 100 mg capsule 100 mg PO TID PRN (Reason: cough) Qty: 45 0RF furosemide [Lasix] 20 mg tablet 20 mg PO DAILY PRN (Reason: edema) Qty: 30 0RF atorvastatin 20 mg tablet 20 mg PO BEDTIME Qty: 90 3RF ascorbic acid (vitamin C) [Vitamin C] 500 mg Tablet 500 mg PO DAILY [place] 3-6-9 1 cap PO DAILY calcium carbonate 600 mg calcium (1,500 mg) Tablet 600 mg PO DAILY cholecalciferol (vitamin D3) [Vitamin D3] 25 mcg (1,000 unit) Tablet 25 mcg PO DAILY Centrum Silver Women 8 mg iron-400 mcg-300 mcg Tablet 1 tab PO DAILY divalproex 125 mg Tablet,Delayed Release (Dr/Ec) 125 mg PO BEDTIME Rx Instructions: bottle says BID, but family states the patient is being weaned off. Family states 11/22/22 will be the last day she gets it. Miralax 17 gram Powder In Packet 17 g PO DAILY ondansetron HCl 4 mg tablet 4 mg PO DAILY Rx Instructions: take 1 or 2 tablets every 6 hours prn nausea pantoprazole 40 mg tablet,delayed release (DR/EC) 40 mg PO DAILY Discontinued mirtazapine 15 mg tablet 30 mg PO BEDTIME No Action prednisone 10 mg tablet See Rx Instructions PO .COMPLEX Qty: 90 1RF Rx Instructions: stay on 20mg daily x4more days then 15mg daily x1week then 10mg daily x2wk then stay on 5mg daily orally; methotrexate sodium 2.5 mg tablet See Rx Instructions PO .Q7days Qty: 30 3RF Rx Instructions: take 6 tabs on same day once a week PO .Q7days; folic acid 1 mg tablet 1 mg PO DAILY Qty: 30 3RF Discharge Orders: Discharge Order (Routine); Ordered 11/26/22 Ordered By: Jaleesa López Other Ambulatory Orders: DME: Wheelchair (Order) Location: None Selected Ordered By: Felton Chong Referrals: Silvana Wakefield MD [Physician] - 2 weeks (SENT REFERRAL FOR APPOINTMENT) Herson Desai MD [Physician] - 12/25/22 3:00 pm Te Gipson MD [Primary Care Provider] - 11/26/22 12:30 pm Discharge Diet: Usual diet Discharge Activity: Resume usual activity Patient Instructions: Ibuprofen (By mouth), Lorazepam (By mouth), Prednisone (By mouth), Cyclobenzaprine (By mouth) (Flexeril, Amrix, Fexmid, FusePaq Tabradol), Fluconazole (By mouth), Sertraline (By mouth) (Zoloft), Hyponatremia (ED), Benzodiazepine Use Disorder (ED), Dementia (ED), Non-diabetic Hypoglycemia (ED), Hypoglycemia in a Person with Diabetes (ED), Concussion (ED), Alcohol Intoxication (ED), Subarachnoid Hemorrhage (GEN), Altered Mental Status (ED), Opioid Safety Discharge Attestations Time Spent in Discharge Care*: greater than 30 min Quality Metrics Clinical Quality Measures [ No reported AMI, CVA or VTE this stay] Coding Level of Care Code Acute Code for Chg Fwd Diagnoses Fever R50.9 Joint pain M25.50 CVA (cerebral vascular accident) I63.9 Rheumatoid arthritis M06.9 Rheumatoid arthritis location: multiple sites Rheumatoid factor presence: unspecified presence Bilateral pulmonary embolism I26.99 Hyperlipidemia E78.2 Hyperlipidemia type: mixed hyperlipidemia Rib pain R07.81 Anxiety F41.9
--- NOTE | 2022-11-26 14:37 | PC.NURSE ---
Patient's daughter requested for Prednisone printed Rx to be called in to pharmacy to be picked up at the same time. I called and provided the verbal order on behalf of Dr. López and informed the patient's daughter of update. She verbalizes understanding.
[2022-11-26 17:45] LABS: E. Chaffeensis AB IGG <1:64; E. Chaffeensis AB IGM <1:20
[2022-11-27 20:25] LABS: Fungitell 1-3-B Glucan Assay 49 pg/mL; Interpretation NEGATIVE
[2022-11-28 11:49] LABS: Aspergillus Source WHOLE BLOOD; Aspergillus Supp NOT DETECTED; Aspergillus Terreus DNA NOT DETECTED
== END 2022-11-26 15:15 | disposition home or self-care (01) | DRG 545 ==
LOC: ER 21:37 → MEDSURG 21:45
PROVIDERS: Internal Medicine; Admitting Provider Internal Medicine; Emergency Provider Emergency Medicine; PCP Family Medicine; Visit Provider Student in an Organized Health Care Education/Training Program
DX: M06.9 Rheumatoid arthritis, unspecified (principal); I26.99 Other pulmonary embolism without acute cor pulmonale; I63.9 Cerebral infarction, unspecified; F02.84 Dementia in other diseases classified elsewhere, unspecified severity, with anxiety; M35.01 Sjogren syndrome with keratoconjunctivitis; M32.9 Systemic lupus erythematosus, unspecified; R50.9 Fever, unspecified; D89.0 Polyclonal hypergammaglobulinemia; M25.562 Pain in left knee; M25.561 Pain in right knee; M25.532 Pain in left wrist; M25.531 Pain in right wrist; E78.2 Mixed hyperlipidemia; S60.861A Insect bite (nonvenomous) of right wrist, initial encounter; W57.XXXA Bitten or stung by nonvenomous insect and other nonvenomous arthropods, initial encounter; R21 Rash and other nonspecific skin eruption; G31.83 Neurocognitive disorder with Lewy bodies; I10 Essential (primary) hypertension; I73.00 Raynaud's syndrome without gangrene; R07.81 Pleurodynia; R13.10 Dysphagia, unspecified; R63.4 Abnormal weight loss; D64.9 Anemia, unspecified; R79.82 Elevated C-reactive protein (CRP); R59.1 Generalized enlarged lymph nodes; F41.9 Anxiety disorder, unspecified; Z66 Do not resuscitate; B37.9 Candidiasis, unspecified; Z68.25 Body mass index [BMI] 25.0-25.9, adult; Z86.711 Personal history of pulmonary embolism; Z79.01 Long term (current) use of anticoagulants; Y93.9 Activity, unspecified; Y92.019 Unspecified place in single-family (private) house as the place of occurrence of the external cause
CPT/HCPCS: 36415; 51701; 70450; 71045; 71260; 73560; 74177; 80053; 80069; 80202; 81001; 82550; 82607; 82728; 83010; 83540; 83550; 83605; 83615; 83735; 83883; 84100; 84145; 84155; 84165; 84443; 84550; 85025; 85045; 85610; 85651; 86038; 86140; 86200; 86334; 86431; 86606; 86618; 86666; 86757; 87040; 87449; 87641; 87798; 93005; 96365; 96367; 96375; 97116; 97161; 97530; 99285; J0131; J2543; J3370; J7030; J7050; J7512; Q9967

== ENCOUNTER → 2022-12-05 11:38 | Outpatient (BNVA) | payer MEDICARE, BC, SELFPAY | PROVIDERS: PCP Family Medicine; Visit Provider Internal Medicine Rheumatology | DX: M32.9 Systemic lupus erythematosus, unspecified (principal); E83.39 Other disorders of phosphorus metabolism; Z79.899 Other long term (current) drug therapy; I26.99 Other pulmonary embolism without acute cor pulmonale; I63.9 Cerebral infarction, unspecified; M05.79 Rheumatoid arthritis with rheumatoid factor of multiple sites without organ or systems involvement; M35.01 Sjogren syndrome with keratoconjunctivitis | CPT/HCPCS: 80053; 84100; 86140; 99215 ==

== ENCOUNTER → 2022-12-27 08:23 | Outpatient (BNVA) | payer MEDICARE, BC, SELFPAY | PROVIDERS: PCP Family Medicine; Visit Provider Psychiatry & Neurology Neurology | DX: I69.354 Hemiplegia and hemiparesis following cerebral infarction affecting left non-dominant side (principal); G47.00 Insomnia, unspecified; G47.9 Sleep disorder, unspecified; R41.89 Other symptoms and signs involving cognitive functions and awareness; G47.8 Other sleep disorders; E78.5 Hyperlipidemia, unspecified | CPT/HCPCS: 99203 ==

== ENCOUNTER 2023-01-16 09:02 | Outpatient (CLI) | payer MEDICARE, BC, SELFPAY ==
--- NOTE | 2023-01-16 09:00 | USCV_ITS ---
Carmen Macias Age: 82 Gender: F : 1940 Exam Date: 01/16/2023 09:25 Ordering Phys: Herson Desai MD Technologist: DAYSI [place] [facility] [place]: DIZZINESS Risk Factors: Previous Vascular Surgery: Right Brachial BP: / Left Brachial BP: / Right Left Velocity (cm/s) Spectral Plaque Velocity (cm/s) Spectral Plaque Syst/Diast Broadening Syst/Diast Broadening 93.70/ 12.10 Prox CCA 78.70 / 10.20 49.70/ 8.50 Mid CCA 82.90 / 8.50 52.80/ 10.30 Distal CCA 72.60 / 8.50 47.90/ 6.30 Prox ICA 85.40 / 11.10 34.00/ 7.60 Mid ICA 76.00 / 16.20 57.50/ 7.00 Distal ICA 117.50/ 22.20 83.30 ECA 73.50 0.61 ICA/CCA 1.42 Antegrade Vertebral Antegrade 44.80/ 11.80 cm/s 36.50/ 9.30 cm/s Tri Subclavian Tri 87.10 63.70 CONCLUSIONS Right ICA stenosis <50%. Left ICA stenosis <50%. Normal antegrade Doppler flow noted in the right vertebral artery. Normal antegrade Doppler flow noted in the left vertebral artery. Ben Espinoaz MD (Electronically Signed) Final Date: 16 January 2023 11:05 S
== END 2023-01-16 09:03 | disposition home or self-care (01) ==
PROVIDERS: PCP Family Medicine; Visit Provider Psychiatry & Neurology Neurology
DX: Z09 Encounter for follow-up examination after completed treatment for conditions other than malignant neoplasm (principal); R42 Dizziness and giddiness
CPT/HCPCS: 93880

== ENCOUNTER → 2023-01-30 15:01 | Outpatient (BNVA) | payer MEDICARE, BC, SELFPAY | PROVIDERS: PCP Family Medicine; Visit Provider Internal Medicine Rheumatology | DX: M05.79 Rheumatoid arthritis with rheumatoid factor of multiple sites without organ or systems involvement (principal); M32.9 Systemic lupus erythematosus, unspecified; M06.9 Rheumatoid arthritis, unspecified; I26.99 Other pulmonary embolism without acute cor pulmonale; M35.01 Sjogren syndrome with keratoconjunctivitis; I63.9 Cerebral infarction, unspecified | CPT/HCPCS: 36415; 80076; 82565; 84100; 85025; 85651; 86140; 86160; 86162; 86235; 86255; 86376; 99214 ==

== ENCOUNTER 2023-01-31 14:20 | Outpatient (CLI) | payer MEDICARE, BC, SELFPAY ==
[2023-01-31 14:54] LABS: Urine Creatinine 58 mg/dL (28-217); Urine Protein Random 8 mg/dL
[2023-01-31 14:57] LABS: Bilirubin Urine Neg (Negative); Blood Urine Neg (Negative); Glucose Urine UA Norm (Normal); Ketones Urine Negative (Negative); Leukocyte Esterase Urine 1+ (Negative); Nitrate Urine Negative (Negative); Protein Urine Neg (Negative); Urine Appearance SL Hazy (CLEAR); Urine Color Yellow (Yellow); Urobilinogen Urine Norm (Negative); pH Urine 7 (5-7)
[2023-01-31 15:05] LABS: RBC Urine 0-4 /hpf (0-2); WBC Urine 25-40 /hpf (0-5)
[2023-01-31 15:06] LABS: Bacteria Urine TRACE /hpf
[2023-01-31 15:07] LABS: Add Urine Culture? Yes
== END 2023-01-31 14:21 | disposition home or self-care (01) ==
LOC: LAB 14:24
PROVIDERS: PCP Family Medicine; Visit Provider Internal Medicine Rheumatology
DX: M05.79 Rheumatoid arthritis with rheumatoid factor of multiple sites without organ or systems involvement (principal); M32.9 Systemic lupus erythematosus, unspecified; Z79.899 Other long term (current) drug therapy
CPT/HCPCS: 81001; 82570; 84156

== ENCOUNTER → 2023-02-25 14:24 | Outpatient (BNVA) | payer MEDICARE, BC, SELFPAY | PROVIDERS: PCP Family Medicine; Visit Provider Internal Medicine Cardiovascular Disease | DX: R06.00 Dyspnea, unspecified (principal); I26.99 Other pulmonary embolism without acute cor pulmonale; M06.9 Rheumatoid arthritis, unspecified; E78.2 Mixed hyperlipidemia; M32.9 Systemic lupus erythematosus, unspecified; M35.01 Sjogren syndrome with keratoconjunctivitis; Z79.01 Long term (current) use of anticoagulants | CPT/HCPCS: 99214 ==

== ENCOUNTER 2023-03-11 14:30 | Outpatient (CLI) | payer MEDICARE, BC, SELFPAY | END 2023-03-11 14:31 | disposition home or self-care (01) | LOC: SLEEP 03-12 11:24 | PROVIDERS: PCP Family Medicine; Visit Provider Psychiatry & Neurology Neurology | DX: G47.00 Insomnia, unspecified (principal); G47.33 Obstructive sleep apnea (adult) (pediatric); G47.36 Sleep related hypoventilation in conditions classified elsewhere | CPT/HCPCS: G0399 ==

== ENCOUNTER → 2023-03-27 09:14 | Outpatient (BNVA) | payer MEDICARE, BC, SELFPAY | PROVIDERS: PCP Family Medicine; Visit Provider Internal Medicine Pulmonary Disease | DX: I26.99 Other pulmonary embolism without acute cor pulmonale (principal); R60.0 Localized edema; R53.81 Other malaise; G47.33 Obstructive sleep apnea (adult) (pediatric) | CPT/HCPCS: 99214 ==

== ENCOUNTER 2023-04-24 13:26 | Emergency (ER) | payer MEDICARE, BC, SELFPAY ==
[2023-04-24 13:39] VITALS: BP 133/78; PULSE 92; RESP 18; TEMP 37.3; O2SAT 93; BMI 23.2
[2023-04-24 14:00] VITALS: BP 148/76; PULSE 85; RESP 18; O2SAT 94
--- NOTE | 2023-04-24 14:05 | XRR_ITS ---
PROCEDURE INFORMATION: Exam: XR Chest Exam date and time: 04/24/2023 2:09 PM Age: 82 years old Clinical indication: Shortness of breath; Additional info: AMS, eval signs of infection, basilar crackles TECHNIQUE: Imaging protocol: Radiologic exam of the chest. Views: 1 view. COMPARISON: 1. CT chest abdpel w/*[id number] 11/22/2022 11:21 AM 2. CR (CHEST, ) 11/20/2022 7:30 PM 3. CR XR chest 1V portable [id number] 08/26/2022 8:20 PM FINDINGS: Lungs: Mild linear atelectasis versus scarring at the lung bases. No consolidation. Pleural spaces: No substantial pleural effusion. No pneumothorax. Heart/Mediastinum: Mild cardiomegaly, stable. Vasculature: Aortic atherosclerotic calcification. Bones/joints: Mild degenerative changes along the spine and acromioclavicular joints. XR/XR chest 1V portable [id number] IMPRESSION: No acute findings.
--- NOTE | 2023-04-24 14:06 | ED_ITS ---
HPI - General Adult General: Chief complaint: Dental/Oral Stated complaint: the doctor sent her over may have infection Time Seen by Provider: 04/24/23 13:51 History of Present Illness: 82-year-old female presents to the emergency department along with her daughter who is the alternate historian due to the patient's dementia. Daughter takes care of her half the time and her sister takes care of the patient the other half of the time. She had a tooth pulled 2 days ago (left mandibular premolar). Soon afterwards she seemed to have a decline in her health. Her dementia got a little worse, her gait was less steady, she had generalized weakness, and at times she seemed chilled despite being in a warm room. Daughter states she has been up to the bathroom wanting to urinate more frequently but sometimes very little comes out. She has chronic urinary incontinence and wears adult depends. Daughter states she did take amoxicillin prior to her tooth getting pulled but has been off of it over the last few days. She does have a history of urinary tract infections. She wanted to have her mother looked at and do some testing to see if she may have an infection. She did have a temperature of 99.2 on arrival. Patient and family state no cough, sore throat, complaints of headache, nausea vomiting, diarrhea, wounds, abdominal pain. Associated symptoms: Deny chest pain, dyspnea, headache(s), nausea, rash, syncope or vomiting Review of Systems General: Reports: 10 or more systems reviewed and unremarkable except in HPI and below Const: Denies: body aches Eyes: Denies: change in vision ENMT: Denies: throat pain Card: Denies: chest pain, edema or syncope Resp: Denies: dyspnea or productive cough GI: Denies: abdominal pain, nausea, vomiting or diarrhea : Denies: flank pain, dysuria or urinary frequency Musc: Denies: neck pain, back pain, extremity pain or extremity swelling Skin/Breast: Denies: rash or erythema Neuro: Denies: headache(s), numbness in extremities or lack of coordination PFS ED PFSH: Medical History Hyperlipidemia Lupus (systemic lupus erythematosus) No pertinent past medical history neghx: htn,dm,thyroid PCP: Dr. Gipson Pulmonary embolism Rheumatoid arthritis Seropositive rheumatoid arthritis of multiple sites Sjogrens syndrome Dr. Garcia Surgical History History of breast surgery benign tumors History of cataract surgery History of hemorrhoidectomy History of hernia repair bilateral inguinal History of hysterectomy one ovary spared. TVH; for benign reasons. Family History Brother Cancer lung cancer Diabetes Sister Diabetes Cancer pancreatic cncer Colon cancer dx age 68 Uterine cancer dx age 50's Son No problems noted. Mother , AT AGE 78 Diabetes Stroke Dementia Father , IN HIS LATE 80'S Heart disease Sister No problems noted. Denies family history of Ovarian cancer Hyperlipidemia Breast cancer Hypertension Social History Smoking and tobacco status: never smoked Second hand smoke exposure: Yes Alcohol intake: never Substance/Drug Use: never Lives independently: Yes Marital status: Marital status details: 08[birth year]10[birth year]20 61 yrs Current occupation: pt not able to use hand rails Pets and animals: Yes (outside) Do you think of yourself as: Straight/Heterosexual Female Reproductive History: Para: 3 Spontaneous abortions: Yes (2) Physical Exam Narrative: EXAM NARRATIVE: Elderly, deconditioned. Alert, normal attention. Answers all my questions appropriately. Moves all extremities. Oral exam reveals gingival scab over the left mandibular premolar that has been removed. No significant gingival edema, erythema or tenderness. The jaw itself is nontender. No trismus. Respiratory evaluation reveals fine crackles in the bases. No respiratory distress. No coughing. Abdominal exam is benign. Patient is wearing an adult diaper. No meningeal signs. There is a contusion on her geller from where she tripped a few days ago and caught herself. Heart rate is in the 80s. Radial pulses 1+. Turgor seems decreased but she also has excessive skin. Const: COMMON NORMALS: alert and well nourished EXAM LIMITATIONS: no altered mental status HENMT: COMMON NORMALS: normocephalic, atraumatic and external ears normal HEAD & SCALP: normocephalic and atraumatic EXTERNAL EAR: Yes external ears normal MOUTH: no muffled voice Eye: COMMON NORMALS: conjunctivae normal and no scleral icterus CONJUNCTIVA: Yes conjunctivae normal Neck/C-Spine: GENERAL: Yes normal visual inspection and Yes trachea midline Resp: COMMON NORMALS: normal respiratory effort and No use of accessory muscles Cardio: COMMON NORMALS: regular rate and regular rhythm RATE: regular rate RHYTHM: regular rhythm GI: COMMON NORMALS: Soft to palpation and non-tender PALPATION: Yes Soft to palpation and No Guarding due to palpation present (GI) Extremity: COMMON NORMALS: normal to inspection Neuro: COMMON NORMALS: moves all extremities, no focal motor deficits and no sensory deficits noted SENSORIUM/ORIENTATION: Yes alert SPEECH: speech normal Psych: COMMON NORMALS: cooperative, normal affect and speech normal SPEECH: Yes normal speech Skin: COMMON NORMALS: no rashes or lesions noted and no jaundice GENERAL SKIN EXAM: no rashes or lesions noted Course Vital Signs: Vital signs: Vital Signs Temperature 99.2 F 04/24/23 13:39 Pulse Rate 78 04/24/23 15:32 Respiratory Rate 18 04/24/23 14:00 Blood Pressure 143/78 04/24/23 15:32 Pulse Oximetry 94 04/24/23 15:32 Oxygen Delivery Me thod Room Air 04/24/23 14:00 [facility] - General Adult Medical Decision Making Differential diagnosis includes subclinical infection (bacteremia from recent dental procedure, UTI, pneumonia, viral infection, other), dehydration, electrolyte abnormality, medication side effect, deconditioning, advancing dementia, autoimmune disease (patient has seropositive rheumatoid arthritis and takes methotrexate and prednisone), other. I spoke with the patient and her daughter and our plan is to obtain a chest x- ray, urine analysis, CBC, CMP. We will also take blood cultures given the recent dental infection. Chest x-ray not showing any definitive infiltrate. Patient has no symptoms of pneumonia today. Urine analysis is abnormal. Urine culture is pending. Given her symptoms we will go ahead and treat with cephalexin 500 mg p.o. 3 times daily. Blood cultures are pending. Patient is appropriate for outpatient management at this time. Patient was given return precautions. Lab Data 04/24/23 14:55 04/24/23 14:55 Radiology Impressions Chest X-Ray 04/24/23 14:05 IMPRESSION: No acute findings. Laboratory Results WBC 11.22 10^3/uL (3.29-11.43) 04/24/23 14:55 RBC 4.03 10^6/uL (3.85-5.65) 04/24/23 14:55 Hgb 12.20 g/dL (11.27-16.99) 04/24/23 14:55 Hct 37.8 % (36-47) 04/24/23 14:55 MCV 93.8 fl (85-98) 04/24/23 14:55 MCH 30.3 pg (27-33) 04/24/23 14:55 MCHC 32.3 g/dL (30-55) 04/24/23 14:55 RDW 14.4 % (12.1-15.1) 04/24/23 14:55 Plt Count 260 10^3/cmm (157-399) 04/24/23 14:55 MPV 11.0 fL (7.4-10.4) H 04/24/23 14:55 Neut % (Auto) 89.2 % 04/24/23 14:55 Lymph % (Auto) 7.2 % 04/24/23 14:55 [place] % (Auto) 2.9 % 04/24/23 14:55 Eos % (Auto) 0.1 % 04/24/23 14:55 Baso % (Auto) 0.2 % 04/24/23 14:55 Neut # (Auto) 10.00 10^3/uL (1.8-7.7) H 04/24/23 14:55 Lymph # (Auto) 0.8 10^3/uL (0.8-4.8) 04/24/23 14:55 [place] # (Auto) 0.3 10^3/uL (0.2-0.9) 04/24/23 14:55 Eos # (Auto) 0.0 10^3/uL (0.0-0.8) 04/24/23 14:55 Baso # (Auto) 0.0 10^3/uL (0.0-0.1) 04/24/23 14:55 Nucleated RBC % (auto) 0 % 04/24/23 14:55 Nucleated RBCs # 0.0 /100WBC 04/24/23 14:55 Sodium 136 mmol/L (136-145) 04/24/23 14:55 Potassium 4.2 mmol/L (3.5-5.1) 04/24/23 14:55 Chloride 95 mmol/L (98-107) L 04/24/23 14:55 Carbon Dioxide 31 mmol/L (22-29) H 04/24/23 14:55 Anion Gap 14.2 (5-19) 04/24/23 14:55 BUN 15 mg/dL (8-23) 04/24/23 14:55 Creatinine 0.7 mg/dL (0.5-0.9) 04/24/23 14:55 GFR Calculation Not Reportable 04/24/23 14:55 Glucose 119 mg/dL (65-115) H 04/24/23 14:55 Calculated Osmolality 284 mOsm/kg (285-295) L 04/24/23 14:55 Calcium 9.1 mg/dL (8.5-10.5) 04/24/23 14:55 Total Bilirubin 0.3 mg/dL (0.15-1.2) 04/24/23 14:55 AST 19 U/L (0-32) 04/24/23 14:55 ALT 12 U/L (0-33) 04/24/23 14:55 Alkaline Phosphatase 83 U/L (35-105) 04/24/23 14:55 Total Protein 8.0 g/dL (6.6-8.7) 04/24/23 14:55 Albumin 3.5 g/dL (3.5-5.2) 04/24/23 14:55 Globulin 4.5 g/dL (1.3-4.6) 04/24/23 14:55 Urine Color Yellow (Yellow) 04/24/23 14:42 Urine Appearance Cloudy (CLEAR) A 04/24/23 14:42 Urine pH 5 (5-7) 04/24/23 14:42 Ur Specific [place] 1.015 (1.005-1.030) 04/24/23 14:42 Urine Protein 1+ (Negative) H 04/24/23 14:42 Urine Glucose (UA) Norm (Normal) 04/24/23 14:42 Urine Ketones Negative (Negative) 04/24/23 14:42 Urine Blood 3+ (Negative) H 04/24/23 14:42 Urine Nitrate Negative (Negative) 04/24/23 14:42 Urine Bilirubin Neg (Negative) 04/24/23 14:42 Urine Urobilinogen Norm mg/dL (Negative) 04/24/23 14:42 Ur Leukocyte Esterase 2+ (Negative) H 04/24/23 14:42 Urine RBC 10-15 /hpf (0-2) H 04/24/23 14:42 Urine WBC Too numerous to cnt /hpf (0-5) H 04/24/23 14:42 Ur Squamous Epith Cells 0-4 /hpf (0-5) H 04/24/23 14:42 Amorphous Sediment Not Reportable 04/24/23 14:42 Urine Bacteria Trace /hpf (NONE) 04/24/23 14:42 Urine Mucus Trace /hpf 04/24/23 14:42 All radiology interpretation(s) finalized by discharge Discharge Plan Discharge Patient Disposition: Home Clinical Impression: Generalized weakness, History of recent dental procedure, Abnormal urinalysis Condition: Stable Prescriptions: New cephalexin 500 mg capsule 500 mg PO Q8H 7 Days Qty: 21 0RF No Action albuterol sulfate 90 mcg/actuation HFA aerosol inhaler 2 puff inhalation Q6H PRN (Reason: shortness of breath or wheezing) 30 Days Qty: 8.5 6RF Eliquis 2.5 mg tablet 2.5 mg PO BID Qty: 180 3RF ascorbic acid (vitamin C) [Vitamin C] 500 mg Tablet 500 mg PO DAILY@14 calcium carbonate 600 mg calcium (1,500 mg) Tablet 600 mg PO DAILY@14 cholecalciferol (vitamin D3) [Vitamin D3] 25 mcg (1,000 unit) Tablet 25 mcg PO DAILY@14 Centrum Silver Women 8 mg iron-400 mcg-300 mcg Tablet 1 tab PO DAILY@14 cyclobenzaprine 10 mg tablet 5 mg PO TID PRN (Reason: Muscle Spasm) Tylenol Ex Str Rapid Release 500 mg Tablet 500 mg PO Q6H PRN (Reason: Pain) [place] 3-6-9 1,200 mg Capsule 1 cap PO DAILY@14 atorvastatin 20 mg tablet 20 mg PO QPM prednisone 5 mg tablet 5 mg PO QAM lorazepam 0.5 mg tablet 0.25 mg PO BEDTIME methotrexate sodium 2.5 mg tablet 15 mg PO Q7D Rx Instructions: on pantoprazole 40 mg tablet,delayed release (DR/EC) 40 mg PO QAM Zoloft 25 mg tablet 25 mg PO QAM folic acid 1 mg tablet 1 mg PO QPM ezetimibe 10 mg tablet 10 mg PO QAM Miralax 17 gram powder in packet 8.5 g PO EVERY OTHER DAY Discharge Orders: Discharge ED (Routine); Ordered 04/24/23 Ordered By: Andi Chakraborty Referrals: Te Gipson MD [Primary Care Provider] - 4-7 days (Weakness, abnormal urinalysis, follow-up blood cultures. Patient prescribed cephalexin.) Discharge Diet: Advance as tolerated Discharge Activity: Increase activity as tolerated Patient Instructions: Opioid Safety, Pain Management Activity Restrictions/Additional Instructions: The urine analysis showed white blood cells, leukocyte E[place], red blood cells. The urine culture will tell us for sure whether there is an infection. However this is enough evidence to say that she has cystitis, which is an infectious or inflammatory process of the bladder causing frequent urination and bladder discomfort. We have ordered cephalexin antibiotic for this. Please make sure she is drink ing cranberry juice and getting plenty of fluids. If she is getting worse with weakness, dehydration, fever, vomiting, or other concerning symptoms then call your doctor or return to the emergency department. Coding Level of Care Code ED Consumer Affairs Specialist for Renaldo Coughlin
--- NOTE | 2023-04-24 14:55 | PC.PHAR ---
pts daughter verified pts medications-pts daughter state the pt finished the amoxil 875mg bid last week ext shows last filled 04/10/23 7d/s-pts daughter states the pts eliquis 2.5mg bid was on hold for 5 days states the pt just restarted saturday04/23/23-pts daughter states the pt takes lorazepam 0.25mg hs rx filled 03/04/23 12d/s 0.25mg tid prn-notes are made in the pharmacy comments
[2023-04-24 15:12] LABS: Basophils % 0.2 %; Eosinophils % 0.1 %; Hematocrit 37.8 % (36-47); Lymphocytes # 0.8 10^3/uL (0.8-4.8); Lymphocytes % 7.2 %; Mean Corpuscular HGB Conc 32.3 g/dL (30-55); Mean Corpuscular Hemoglobin 30.3 pg (27-33); Mean Corpuscular Volume 93.8 fl (85-98); Monocytes # 0.3 10^3/uL (0.2-0.9); Monocytes % 2.9 %; Neutrophils % 89.2 %; Nucleated Red Blood Cells % 0 %; Platelet Count 260 10^3/cmm (157-399); Red Blood Count 4.03 10^6/uL (3.85-5.65); Red Cell Distribution Width 14.4 % (12.1-15.1); White Blood Count 11.22 10^3/uL (3.29-11.43)
[2023-04-24 15:14] LABS: Glucose Urine UA Norm (Normal); Protein Urine 1+ (Negative); Specific Gravity, Urine 1.015 (1.005-1.030); Urine Appearance Cloudy (CLEAR); Urine Color Yellow (Yellow); pH Urine 5 (5-7)
[2023-04-24 15:15] LABS: Add Urine Microscopic? YES; Bilirubin Urine Neg (Negative); Blood Urine 3+ (Negative); Ketones Urine Negative (Negative); Leukocyte Esterase Urine 2+ (Negative); Nitrate Urine Negative (Negative); Urobilinogen Urine Norm (Negative)
[2023-04-24 15:28] LABS: Bacteria Urine TRACE /hpf; Mucus Urine TRACE /hpf; Squamous Epithelial Cell Urine 0-4 /hpf (0-5); WBC Urine TOO NUMEROUS TO CNT /hpf (0-5)
[2023-04-24 15:29] LABS: Add Urine Culture? Yes
[2023-04-24 15:32] VITALS: BP 143/78; PULSE 78; O2SAT 94
[2023-04-24 15:35] LABS: Alanine Aminotransferase 12 U/L (0-33); Albumin Level 3.5 g/dL (3.5-5.2); Alkaline Phosphatase 83 U/L (35-105); Anion Gap 14.2 (5-19); Aspartate Amino Transferase 19 U/L (0-32); Blood Urea Nitrogen 15 mg/dL (8-23); Calcium 9.1 mg/dL (8.5-10.5); Carbon Dioxide 31 mmol/L (22-29); Chloride 95 mmol/L (98-107); Globulin 4.5 g/dL (1.3-4.6); Glucose 119 mg/dL (65-115); Osmolality Calculated 284 mOsm/kg (285-295); Potassium 4.2 mmol/L (3.5-5.1); Sodium 136 mmol/L (136-145); Total Bilirubin 0.3 mg/dL (0.15-1.2)
[2023-04-24 16:08] VITALS: PULSE 81; O2SAT 94
== END 2023-04-24 16:09 | disposition home or self-care (01) ==
PROVIDERS: Emergency Provider Emergency Medicine; PCP Family Medicine
DX: R53.1 Weakness (principal); R82.90 Unspecified abnormal findings in urine; Z79.01 Long term (current) use of anticoagulants
CPT/HCPCS: 36415; 51701; 71045; 80053; 81001; 85025; 87040; 87077; 87086; 87186; 99284

== ENCOUNTER → 2023-05-10 12:16 | Outpatient (BNVA) | payer MEDICARE, BC, SELFPAY | PROVIDERS: PCP Family Medicine; Visit Provider Family Medicine | DX: R30.0 Dysuria (principal); N39.41 Urge incontinence | CPT/HCPCS: 81000; 87086 ==

== ENCOUNTER 2023-07-03 13:50 | Outpatient (CLI) | payer OTHER, SELFPAY | END 2023-07-03 13:51 | disposition home or self-care (01) | LOC: LAB 13:51 | PROVIDERS: PCP Family Medicine; Visit Provider Internal Medicine Rheumatology | DX: M32.9 Systemic lupus erythematosus, unspecified (principal); M35.01 Sjogren syndrome with keratoconjunctivitis; M05.79 Rheumatoid arthritis with rheumatoid factor of multiple sites without organ or systems involvement; R76.8 Other specified abnormal immunological findings in serum; Z86.711 Personal history of pulmonary embolism; Z79.01 Long term (current) use of anticoagulants; Z86.73 Personal history of transient ischemic attack (TIA), and cerebral infarction without residual deficits; Z79.899 Other long term (current) drug therapy | CPT/HCPCS: 36415; 80076; 82565; 85025; 85651; 86140; 86160; 86162; 86200; 86235; 86255; 86376; 99214 ==

== ENCOUNTER 2024-02-27 14:54 | Emergency (ER) | payer MEDICARE, SELFPAY ==
[2024-02-27 15:00] VITALS: BP 217/115; PULSE 93; RESP 18; TEMP 37.1; O2SAT 92; BMI 23.8
--- NOTE | 2024-02-27 15:06 | XR_ITS ---
WS: [id number] Portable AP upright chest, 02/27/2024 Clinical Data: dyspnea/cough Comparison: Portable chest, 04/24/2023 Findings: No nodules, masses or effusions are seen. The heart is slightly enlarged. The pulmonary vas cularity is not increased. No pneumonia or pneumothorax is seen. The aortic arch and descending thora cic aorta show calcification and tortuosity. XR/XR chest 1V portable [id number] Impression: Cardiomegaly and atherosclerosis.
--- NOTE | 2024-02-27 15:14 | ECG_ITS ---
[facility] Test Date: 2024-02-27 Pat Name: Carmen Macias Department: Room: Gender: Female [employer]er[employer] Supervisor: : [id number] Requested By: Mio Montes Order Number: [id number] Staci MD: Parker Estrada M.D. Measurements Intervals [place] Rate: 98 P: -18 ME: 154 QRS: -6 QRSD: 93 T: 51 QT: 297 QTc: 380 Interpretive Statements SINUS RHYTHM POSSIBLE LEFT ATRIAL ENLARGEMENT [-0.1mV P-WAVE IN V1/V2] NONSPECIFIC T-WAVE ABNORMALITY Compared to ECG 11/20/2022 22:02:17 T-wave abnormality now present Electronically Signed On 02-27-2024 15:33:54 CDT by Parker Estrada M.D. [email or web address]
--- NOTE | 2024-02-27 15:19 | ED_ITS ---
HPI - Weakness 2 General: Chief complaint: Weakness Stated complaint: ams, weakness Time Seen by Provider: 02/27/24 14:58 History of Present Illness: 83-year-old female presents to the [facility] room known exposure to COVID with multiple family members. Main complaint is altered mental status and weakness. No other family members are here at the time was seen she is hypertensive on arrival. Her O2 sat is 92% on room air she is afebrile she is not able to give any answers to contribute to her history due to her dementia. We do not have any family members to establish a baseline. Associated symptoms: Denies chest pain, chills, dysuria or fever(s) Review of Systems 2 Const: Denies: fever(s) or chills Card: Denies: chest pain Resp: Denies: dyspnea GI: Denies: abdominal pain : Denies: dysuria, urinary frequency or urinary urgency Musc: Denies: neck pain or back pain Skin/Breast: Denies: rash PFSH ED 2 PFSH: Medical History Seropositive rheumatoid arthritis of multiple sites No pertinent past medical history neghx: htn,dm,thyroid PCP: Dr. Gipson Pulmonary embolism Sjogrens syndrome Dr. Garcia Hyperlipidemia Rheumatoid arthritis Lupus (systemic lupus erythematosus) Surgical History History of hysterectomy one ovary spared. TVH; for benign reasons. History of hemorrhoidectomy History of cataract surgery History of breast surgery benign tumors History of hernia repair bilateral inguinal Family History Brother Cancer lung cancer Diabetes Sister Diabetes Cancer pancreatic cncer Colon cancer dx age 68 Uterine cancer dx age 50's Son No problems noted. Mother , AT AGE 78 Diabetes Stroke Dementia Father , IN HIS LATE 80'S Heart disease Sister No problems noted. Denies family history of Ovarian cancer Hyperlipidemia Breast cancer Hypertension Social History Smoking and tobacco/nicotine status: never used tobacco/nicotine Second hand smoke exposure: Yes Alcohol intake: never Substance/Drug Use: never Lives independently: Yes Marital status: Marital status details: 08/10/20 61 yrs Current occupation: pt not able to use hand rails Pets and animals: Yes (outside) Do you think of yourself as: Straight/Heterosexual Female Reproductive History: Para: 3 Spontaneous abortions: Yes (2) Physical Exam 2 Const: GENERAL APPEARANCE: cooperative and comfortable O RIENTATION/CONSCIOUSNESS: Yes awake and Yes confused HENMT: COMMON NORMALS: normocephalic, atraumatic and hearing grossly normal bilaterally HEAD & SCALP: normocephalic and atraumatic Resp: COMMON NORMALS: normal respiratory effort, No retractions and No use of accessory muscles AUSCULTATION: wheezes Cardio: COMMON NORMALS: regular rate, regular rhythm and No murmurs present (Cardio) RATE: regular rate RHYTHM: regular rhythm GI: COMMON NORMALS: Soft to palpation and No hepatosplenomegaly present A USCULTATION: Yes normoactive bowel sounds PALPATION: Yes Soft to palpation, No Tenderness to palpation present (GI), No Guarding due to palpation present (GI) and Yes No hepatosplenomegaly present Extremity: COMMON NORMALS: normal to inspection, capillary refill normal, no clubbing, cyanosis or edema, no calf tenderness and no pedal edema Skin: COMMON NORMALS: no rashes or lesions noted GENERAL SKIN EXAM: no rashes or lesions noted Course 2 Vital Signs: Vital signs: Vital Signs Temperature 98.8 F 02/27/24 15:00 Pulse Rate 85 02/27/24 21:30 Respiratory Rate 18 02/27/24 15:00 Blood Pressure 164/96 02/27/24 21:30 Pulse Oximetry 95 02/27/24 21:30 Oxygen Delivery Me thod Nasal Cannula 02/27/24 21:00 Oxygen Flow Rate 2 02/27/24 21:00 MDM - Weakness Medical Decision Making Patient is on hospice recently tested positive for COVID several other family members that are COVID-positive. Family states they were directed here by the hospice service. They would like to remain on hospice but want to have the patient on respite. We contacted hospice service they are not able to get her transferred to respite because of the time of day. I signed patient out to the oncoming physician. My understanding from reviewing the chart ultimately family stated take the patient home and hospice will work on respite placement from home. Patient was discharged see discharge instructions Lab Data 02/27/24 15:24 02/27/24 15:24 Radiology Impressions Chest X-Ray 02/27/24 15:06 Impression: Cardiomegaly and atherosclerosis. Laboratory Results WBC 8.17 10^3/uL (3.29-11.43) 02/27/24 15:24 RBC 4.59 10^6/uL (3.85-5.65) 02/27/24 15:24 Hgb 13.80 g/dL (11.27-16.99) 02/27/24 15:24 Hct 42.5 % (36-47) 02/27/24 15:24 MCV 92.6 fl (85-98) 02/27/24 15:24 MCH 30.1 pg (27-33) 02/27/24 15: MCHC 32.5 g/dL (30-55) 02/27/24 15:24 RDW 13.1 % (12.1-15.1) 02/27/24 15:24 Plt Count 171 10^3/cmm (157-399) 02/27/24 15: MPV 11.0 fL (7.4-10.4) H 02/27/24 15:24 Neut % (Auto) 84.3 % 02/27/24 15: Lymph % (Auto) 9.5 % 02/27/24 15: [place] % (Auto) 5.3 % 02/27/24 15:24 Eos % (Auto) 0.2 % 02/27/24:24 Baso % (Auto) 0.5 % 02/27/24:24 Neut # (Auto) 6.88 10^3/uL (1.8-7.7) 02/27/24 15:24 Lymph # (Auto) 0.8 10^3/uL (0.8-4.8) 02/27/24 15:24 [place] # (Auto) 0.4 10^3/uL (0.2-0.9) 02/27/24: Eos # (Auto) 0.0 10^3/uL (0.0-0.8) 02/27/24 15:24 Baso # (Auto) 0.0 10^3/uL (0.0-0.1) 02/27/24 15:24 Nucleated RBC % (auto) 0 % 02/27/24 15:24 Nucleated RBCs # 0.0 /100WBC 02/27/24 15:24 Specimen Type Arterial 02/27/24 15:21 Sample Site Brachial, right 02/27/24 15:21 ABG pH 7.44 (7.35-7.45) 02/27/24 15:21 ABG pCO2 39.6 mmHg (35-45) 02/27/24 15:21 ABG pO2 66.0 mmHg (80.0-100.0) L 02/27/24 15:21 ABG PO2/FiO2 Ratio 314 02/27/24 15:21 ABG HCO3 26.9 mmol/L (22-26) H 02/27/24 15:21 ABG O2 Saturation 93.3 02/27/24 15:21 ABG Base Excess 2.6 mmol/L (-2.0-2.0) H 02/27/24 15:21 Neel Test Pos 02/27/24 15:21 A-a O2 Gradient 4.5 mmHg (5-10) L 02/27/24 15:21 Hematocrit 42.9 % (37-47) 02/27/24 15:21 Hgb O2 Saturation 91.7 % (95-100) L 02/27/24 15:21 Carboxyhemoglobin 1.1 %THgb (0.4-20.1) 02/27/24 15:21 Methemoglobin 0.6 % (0.4-1.5) 02/27/24 15:21 Total Hemoglobin 14.0 g/dL (12-16) 02/27/24 15:21 Sodium 141.0 mmol/L (131-143) 02/27/24 15:21 Potassium 3.2 mmol/L (3.5-5.0) L 02/27/24 15:21 Glucose 106.0 mg/dL (70-115) 02/27/24 15:21 Ionized Calcium 1.1 mmol/L (1.1-1.4) 02/27/24 15:21 O2 Delivery Device Room air 02/27/24 15:21 FiO2 21.0 % 02/27/24 15:21 Hat Finisher ID [place] 02/27/24 15:21 Sodium 140 mmol/L (136-145) 02/27/24 15:24 Potassium 3.3 mmol/L (3.5-5.1) L 02/27/24 15:24 Chloride 104 mmol/L (98-107) 02/27/24 15:24 Carbon Dioxide 27 mmol/L (22-29) 02/27/24 15:24 Anion Gap 12.3 (5-19) 02/27/24 15:24 BUN 9 mg/dL (8-23) 02/27/24 15:24 Creatinine 0.4 mg/dL (0.5-0.9) L 02/27/24 15:24 GFR Calculation Not Reportable 02/27/24 15:24 Glucose 104 mg/dL (65-115) 02/27/24 15:24 Calculated Osmolality 289 mOsm/kg (285-295) 02/27/24 15:24 Calcium 8.8 mg/dL (8.5-10.5) 02/27/24 15:24 Total Bilirubin 0.4 mg/dL (0.15-1.2) 02/27/24 15:24 AST 16 U/L (0-32) 02/27/24 15:24 ALT 9 U/L (0-33) 02/27/24 15:24 Alkaline Phosphatase 93 U/L (35-105) 02/27/24 15:24 Total Protein 7.3 g/dL (6.6-8.7) 02/27/24 15:24 Albumin 3.8 g/dL (3.5-5.2) 02/27/24 15:24 Globulin 3.5 g/dL (1.3-4.6) 02/27/24 15:24 Urine Color Yellow (Yellow) 02/27/24 20: Urine Appearance Clear (CLEAR) 02/27/24 20: Urine pH 6.0 (5-7) 02/27/24 20:25 Ur Specific [place] 1.016 (1.005-1.030) 02/27/24 20: Urine Protein Trace (Negative) A 02/27/24 20: Urine Glucose (UA) Negative (Normal) 02/27/24 20: Urine Ketones Negative (Negative) 02/27/24 20: Urine Blood Negative (Negative) 02/27/24 20: Urine Nitrate Negative (Negative) 02/27/24 20: Urine Bilirubin Negative (Negative) 02/27/24 20:25 Urine Urobilinogen 1.0 mg/dL (Negative) 02/27/24 20:25 Ur Leukocyte Esterase 1+ (Negative) A 02/27/24 20:25 Urine RBC 3-5 /hpf (0-2) 02/27/24 20:25 Urine WBC 21-50 /hpf (0-5) H 02/27/24 20:25 Ur Squamous Epith Cells 0-5 /hpf (0-5) 02/27/24 20:25 Amorphous Sediment Not Reportable 02/27/24 20:25 Urine Bacteria None seen /hpf (NONE) 02/27/24 20:25 Hyaline Casts 1.65 /lpf 02/27/24 20:25 Adenovirus (PCR) Not detected (NOT DETECT) 02/27/24 16:14 C. pneumoniae DNA (PCR) Not detected (NOT DETECT) 02/27/24 16:14 Coronavirus 229E (PCR) Not detected (NOT DETECT) 02/27/24 16:14 Human Metapneumovir PCR Not detected (NOT DETECT) 02/27/24 16:14 Influenza A (H1) PCR Not detected (NOT DETECT) 02/27/24 16:14 Influ A (H1/09) PCR Not detected (NOT DETECT) 02/27/24 16:14 Influenza A (H3) PCR Not detected (NOT DETECT) 02/27/24 16:14 Influenza Type A (PCR) Not detected (NOT DETECT) 02/27/24 16:14 Influenza Type B (PCR) Not detected (NOT DETECT) 02/27/24 16:14 M. pneumoniae (PCR) Not detected (NOT DETECT) 02/27/24 16:14 Parainfluenza 1 (PCR) Not detected (NOT DETECT) 02/27/24 16:14 Parainfluenza 2 (PCR) Not detected (NOT DETECT) 02/27/24 16:14 Parainfluenza 3 (PCR) Not detected (NOT DETECT) 02/27/24 16:14 Parainfluenza 4 (PCR) Not detected (NOT DETECT) 02/27/24 16:14 RSV Type A (PCR) Not detected (NOT DETECT) 02/27/24 16:14 RSV Type B (PCR) Not detected (NOT DETECT) 02/27/24 16:14 Entero/Rhino (PCR) Not detected (NOT DETECT) 02/27/24 16:14 SARS-CoV-2 (PCR) Detected (NOT DETECT) A 02/27/24 16:14 All radiology interpretation(s) finalized by discharge Discharge Plan Discharge Patient Disposition: Home Clinical Impression: COVID-19, Hospice care patient, Dependence on supplemental oxygen Condition: Stable Prescriptions: No Action albuterol sulfate 90 mcg/actuation HFA aerosol inhaler 2 puff inhalation Q6H PRN (Reason: shortness of breath or wheezing) 30 Days Qty: 8.5 6RF prednisone 5 mg tablet 5 mg PO QAM Qty: 90 0RF leflunomide 10 mg tablet 10 mg PO DAILY Qty: 30 3RF quetiapine 25 mg tablet 25 mg PO DAILY Eliquis 2.5 mg tablet See Rx Instructions .ROUTE .COMPLEX Qty: 180 3RF Dose Instruction: TAKE 1 TABLET BY MOUTH TWICE DAILY Rx Instructions: TAKE 1 TABLET BY MOUTH TWICE DAILY diclofenac sodium 75 mg tablet,delayed release (DR/EC) 75 mg PO BID PRN (Reason: pain) Qty: 60 0RF sertraline 25 mg tablet See Rx Instructions .ROUTE .COMPLEX Qty: 30 11RF Dose Instruction: TAKE 1 TABLET BY MOUTH EVERY DAY Rx Instructions: TAKE 1 TABLET BY MOUTH EVERY DAY ascorbic acid (vitamin C) [Vitamin C] 500 mg Tablet 500 mg PO DAILY@14 cholecalciferol (vitamin D3) [Vitamin D3] 25 mcg (1,000 unit) Tablet 25 mcg PO DAILY@14 Centrum Silver Women 8 mg iron-400 mcg-300 mcg Tablet 1 tab PO DAILY@14 cyclobenzaprine 10 mg tablet 5 mg PO TID PRN (Reason: Muscle Spasm) Tylenol Ex Str Rapid Release 500 mg Tablet 500 mg PO Q6H PRN (Reason: Pain) atorvastatin 20 mg tablet 20 mg PO QPM lorazepam 0.5 mg tablet 0.25 mg PO BEDTIME pantoprazole 40 mg tablet,delayed release (DR/EC) 40 mg PO QAM ezetimibe 10 mg tablet 10 mg PO QAM Miralax 17 gram powder in packet 8.5 g PO EVERY OTHER DAY Discharge Orders: Discharge ED (Routine); Ordered 02/27/24 Ordered By: Noel Argueta Referrals: Te Gipson MD [Primary Care Provider] - Discharge Diet: Usual diet Discharge Activity: Increase activity as tolerated Patient Instructions: COVID-19 (Coronavirus Disease 2019) (ED), Opioid Safety, Pain Management Activity Restrictions/Additional Instructions: Tylenol ibuprofen as needed for discomfort. Coding Level of Care Code ED [employer] for Renaldo Coughlin
[2024-02-27 15:32] LABS: Basophils % 0.5 %; Eosinophils % 0.2 %; Hematocrit 42.5 % (36-47); Lymphocytes # 0.8 10^3/uL (0.8-4.8); Lymphocytes % 9.5 %; Mean Corpuscular HGB Conc 32.5 g/dL (30-55); Mean Corpuscular Hemoglobin 30.1 pg (27-33); Mean Corpuscular Volume 92.6 fl (85-98); Monocytes # 0.4 10^3/uL (0.2-0.9); Monocytes % 5.3 %; Neutrophils # 6.88 10^3/uL (1.8-7.7); Neutrophils % 84.3 %; Nucleated Red Blood Cells % 0 %; Platelet Count 171 10^3/cmm (157-399); Red Blood Count 4.59 10^6/uL (3.85-5.65); Red Cell Distribution Width 13.1 % (12.1-15.1); White Blood Count 8.17 10^3/uL (3.29-11.43)
[2024-02-27 15:35] LABS: Blood Gas Allen Test Pos; Blood Gas Sample Site Brachial, right; Blood Gas Sample Type Arterial
[2024-02-27 15:37] LABS: ABG PCO2 39.6 mmHg (35-45); ABG PH Result 7.44 (7.35-7.45); Alveolar-Arterial Oxygen Gradi 4.5 mmHg (5-10); Arterial Blood Gas Hematocrit 42.9 % (37-47); Base Excess ABG 2.6 mmol/L (-2.0-2.0); Carboxyhemoglobin 1.1 %THgb (0.4-20.1); HCO3 ABG 26.9 mmol/L (22-26); HGB O2 Sat 91.7 % (95-100); Ionized Calcium Level - ABG 1.1 mmol/L (1.1-1.4); Methemoglobin 0.6 % (0.4-1.5); Oxygen Saturation ABG 93.3; PO2 FiO2 Ratio Arterial Blood 314; Potassium Level - ABG 3.2 mmol/L (3.5-5.0)
[2024-02-27 15:38] LABS: Blood Gas Operator Identificat MONRO; Oxygen Device ROOM AIR
[2024-02-27 15:49] LABS: Alanine Aminotransferase 9 U/L (0-33); Albumin Level 3.8 g/dL (3.5-5.2); Alkaline Phosphatase 93 U/L (35-105); Anion Gap 12.3 (5-19); Aspartate Amino Transferase 16 U/L (0-32); Blood Urea Nitrogen 9 mg/dL (8-23); Calcium 8.8 mg/dL (8.5-10.5); Carbon Dioxide 27 mmol/L (22-29); Chloride 104 mmol/L (98-107); Creatinine Clr Calc Pharmacy 45.9164; Globulin 3.5 g/dL (1.3-4.6); Glucose 104 mg/dL (65-115); Osmolality Calculated 289 mOsm/kg (285-295); Potassium 3.3 mmol/L (3.5-5.1); Sodium 140 mmol/L (136-145); Total Bilirubin 0.4 mg/dL (0.15-1.2); Total Protein 7.3 g/dL (6.6-8.7)
[2024-02-27 16:25] VITALS: BP 179/94; PULSE 83; O2SAT 94
[2024-02-27 20:00] VITALS: BP 185/97; PULSE 87; O2SAT 98
[2024-02-27 20:00] LABS: Adenovirus Not Detected (NOT DETECT); Chlamydia Pneumoniae Not Detected (NOT DETECT); Coronavirus 229E,HKU1,NL63,OC4 Not Detected (NOT DETECT); Human Metapneumovirus Not Detected (NOT DETECT); Human Rhinovirus/Enterovirus Not Detected (NOT DETECT); Influenza A Not Detected (NOT DETECT); Influenza A H1 Not Detected (NOT DETECT); Influenza A H1-2009 Not Detected (NOT DETECT); Influenza A H3 Not Detected (NOT DETECT); Influenza B Not Detected (NOT DETECT); Mycoplasma Pneumoniae Not Detected (NOT DETECT); Parainfluenza Virus Type 1 Not Detected (NOT DETECT); Parainfluenza Virus Type 2 Not Detected (NOT DETECT); Parainfluenza Virus Type 3 Not Detected (NOT DETECT); Parainfluenza Virus Type 4 Not Detected (NOT DETECT); Respiratory Syncytial Virus A Not Detected (NOT DETECT); Respiratory Syncytial Virus B Not Detected (NOT DETECT)
[2024-02-27 20:16] LABS: SARS-COV-2 Detected (NOT DETECT)
[2024-02-27 20:30] VITALS: BP 161/95; PULSE 71; O2SAT 96
[2024-02-27 20:39] LABS: Charge for UA Resulting for Rev
[2024-02-27 20:43] LABS: Bilirubin Urine Negative (Negative); Blood Urine Negative (Negative); Glucose Urine UA Negative (Normal); Ketones Urine Negative (Negative); Leukocyte Esterase Urine 1+ (Negative); Nitrate Urine Negative (Negative); Protein Urine Trace (Negative); Specific Gravity, Urine 1.016 (1.005-1.030); Urine Appearance Clear (CLEAR); Urine Color Yellow (Yellow)
[2024-02-27 20:54] LABS: Bacteria Urine None Seen /hpf; Hyaline Casts Urine 1.65 /lpf; Squamous Epithelial Cell Urine 0-5 /hpf (0-5); WBC Urine 21-50 /hpf (0-5)
[2024-02-27 21:00] VITALS: BP 181/113; PULSE 91; O2SAT 97
[2024-02-27 21:10] LABS: Add Urine Culture? Yes
[2024-02-27 21:30] VITALS: BP 164/96; PULSE 85; O2SAT 95
== END 2024-02-27 22:01 | disposition home or self-care (01) ==
PROVIDERS: Emergency Provider Family Medicine; PCP Family Medicine
DX: U07.1 COVID-19 (principal); Z99.81 Dependence on supplemental oxygen
CPT/HCPCS: 36415; 36600; 51702; 71045; 80051; 80053; 81003; 81015; 82330; 82805; 85025; 87077; 87086; 87186; 87486; 87581; 87633; 93005; 99285